=== PATIENT | female | born 1955 | race Caucasian/White ===

== ENCOUNTER → 2016-04-24 | Outpatient (CLI) | payer OTHER | LOC: RAD 08:37 | DX: R19.5 Other fecal abnormalities (principal) | CPT/HCPCS: 74249 ==

== ENCOUNTER → 2016-06-17 | Outpatient (CLI) | payer OTHER ==
[2016-06-17 08:02] LABS: ABSOLUTE EOSINOPHILS # (AUTO) 0.2 10^3/uL (0.0-0.6); ABSOLUTE MONOCYTES (AUTO) 0.3 10^3/uL (0.1-1.4); ABSOLUTE NEUT (AUTO) 2.4 10^3/uL (1.7-8.2); BASOPHILS % (AUTO) 0.6 % (0-2); EOSINOPHILS % (AUTO) 4.8 % (0-6); HEMATOCRIT 33.5 % (36.0-47.0); HEMOGLOBIN 11.3 g/dL (12.0-15.5); HGB HCT DIFFERENCE 0.4; LYMPHOCYTES % (AUTO) 25.8 % (13-45); MEAN CORPUSCULAR HEMOGLOBIN 30.4 pg (27.0-33.4); MEAN CORPUSCULAR HGB CONC 33.7 g/dL (32.0-36.0); MEAN CORPUSCULAR VOLUME 90 fl (80-97); MONOCYTES % (AUTO) 8.5 % (3-13); RED BLOOD COUNT 3.71 10^6/uL (3.72-5.28); RED CELL DISTRIBUTION WIDTH 13.6 % (11.5-14.0); SEGMENTED NEUTROPHILS % (AUTO) 60.3 % (42-78)
[2016-06-17 08:30] LABS: ALANINE AMINOTRANSFERASE 38 U/L (9-52); ALBUMIN 3.7 g/dL (3.5-5.0); ALKALINE PHOSPHATASE 91 U/L (38-126); ANION GAP 8 (5-19); ASPARTATE AMINO TRANSFERASE 28 U/L (14-36); BILIRUBIN,TOTAL 0.5 mg/dL (0.2-1.3); BLOOD UREA NITROGEN 21 mg/dL (7-20); CALCIUM 9.2 mg/dL (8.4-10.2); CARBON DIOXIDE 25 mmol/L (22-30); CHLORIDE 105 mmol/L (98-107); CHOLESTEROL 132.12 mg/dL (0-200); CREATININE RESULT 0.86 mg/dL (0.52-1.25); Direct HDL 68 mg/dL (>40); GLUCOSE 249 mg/dL (75-110); POTASSIUM 5.3 mmol/L (3.6-5.0); SODIUM 137.6 mmol/L (137-145); TOTAL PROTEIN 6.2 g/dL (6.3-8.2); TRIGLYCERIDES 47 mg/dL (<150)
[2016-06-17 08:40] LABS: DIRECT LDL 50 mg/dL (<100)
== END ==
LOC: CCC 07:50
DX: E11.9 Type 2 diabetes mellitus without complications (principal)
CPT/HCPCS: 36415; 80053; 80061; 83036; 84443; 85025

== ENCOUNTER → 2016-09-24 | Outpatient (CLI) | payer OTHER | LOC: CCC 08:40 | DX: E03.9 Hypothyroidism, unspecified (principal) | CPT/HCPCS: 36415; 82728; 83036; 83540; 83550; 84443 ==

== ENCOUNTER → 2016-11-12 | Outpatient (CLI) | payer OTHER | LOC: CCC 10:52 | DX: E03.9 Hypothyroidism, unspecified (principal) | CPT/HCPCS: 36415; 84443 ==

== ENCOUNTER → 2017-03-02 | Outpatient (CLI) | payer OTHER ==
[2017-03-02 07:25] LABS: ABSOLUTE EOSINOPHILS # (AUTO) 0.2 10^3/uL (0.0-0.6); ABSOLUTE LYMPHOCYTES (AUTO) 1.3 10^3/uL (0.5-4.7); ABSOLUTE MONOCYTES (AUTO) 0.4 10^3/uL (0.1-1.4); ABSOLUTE NEUT (AUTO) 2.3 10^3/uL (1.7-8.2); BASOPHILS % (AUTO) 0.8 % (0-2); EOSINOPHILS % (AUTO) 5.6 % (0-6); HEMATOCRIT 33.3 % (36.0-47.0); HEMOGLOBIN 11.4 g/dL (12.0-15.5); HGB HCT DIFFERENCE 0.9; LYMPHOCYTES % (AUTO) 31.3 % (13-45); MEAN CORPUSCULAR HEMOGLOBIN 30.9 pg (27.0-33.4); MEAN CORPUSCULAR HGB CONC 34.3 g/dL (32.0-36.0); MEAN CORPUSCULAR VOLUME 90 fl (80-97); MONOCYTES % (AUTO) 8.5 % (3-13); RED CELL DISTRIBUTION WIDTH 13.4 % (11.5-14.0); SEGMENTED NEUTROPHILS % (AUTO) 53.8 % (42-78); WHITE BLOOD COUNT 4.2 10^3/uL (4.0-10.5)
== END ==
LOC: CCC 07:12
DX: E11.9 Type 2 diabetes mellitus without complications (principal); Z83.2 Family history of diseases of the blood and blood-forming organs and certain disorders involving the immune mechanism
CPT/HCPCS: 36415; 83036; 85025

== ENCOUNTER → 2017-03-02 | Outpatient (CLI) | payer OTHER ==
--- NOTE | 2017-03-02 15:11 | WOMENS IMAGING REPORT ---
EXAM DESCRIPTION: BILAT SCREENING MAMMO W/CAD COMPLETED DATE/TIME: 03/02/2017 8:21 am REASON FOR STUDY: ROUTINE SCREENING; Z12.31 Z12.31 ENCNTR SCREEN MAMMOGRAM FOR MALIGNANT NEOPLASM O F CHRIS COMPARISON: 2009, 2015 TECHNIQUE: Standard craniocaudal and mediolateral oblique views of each breast recorded using [employer] acquisition. LIMITATIONS: None. FINDINGS: No masses, calcifications or architectural distortion. No areas of suspicion. Read with the assistance of CAD. .[facility] - R2 Cenova Version 1.3 .[facility] Imaging - R2 Cenova Version 1.3 .[facility] Imaging - R2 Cenova Version 2.4 .[facility] [place] R2 Cenova Version 2.4 .[facility] - R2 Programming Instructor Version 9.2 IMPRESSION: NORMAL MAMMOGRAM. BIRADS 1. BREAST DENSITY: b. There are scattered areas of fibroglandular density. BIRAD: 1 NEGATIVE RECOMMENDATION: ROUTINE SCREENING COMMENT: The patient has been notified of the results by letter per SA requirements. Additional no tification policies are in place for contacting patient with suspicious or incomplete findings. Quality ID #[id number]: The [employer] recommends an annual screening mammogram for women aged 40 years or over. This facility utilizes a reminder system to ensure that all patients receive reminder letters, and/or direct phone calls for appointments. This includes reminders for routine scr eening mammograms, diagnostic mammograms, or other Breast Imaging Interventions when appropriate. Th is patient will be placed in the appropriate reminder system. The [employer] (ACR) has developed recommendations for screening MRI of the breast s in certain patient populations, to be used in conjunction with mammography. Breast MRI surveillanc e may be appropriate for women with more than 20% lifetime risk of developing breast cancer as deter mined by genetic testing, significant family history of the disease, or history of mantle radiation f or Hodgkins Disease. ACR Practice Guidelines 2008. TECHNICAL DOCUMENTATION: FINDING NUMBER: (1) ASSESSMENT: (1) JOB ID: [id number] [employer]- All Rights Reserved
== END ==
LOC: WI 08:04
DX: Z12.31 Encounter for screening mammogram for malignant neoplasm of breast (principal)
CPT/HCPCS: 77067; G0202

== ENCOUNTER → 2017-07-31 | Outpatient (CLI) | payer OTHER ==
[2017-07-31 10:02] LABS: ABSOLUTE EOSINOPHILS # (AUTO) 0.2 10^3/uL (0.0-0.6); ABSOLUTE LYMPHOCYTES (AUTO) 1.2 10^3/uL (0.5-4.7); ABSOLUTE MONOCYTES (AUTO) 0.4 10^3/uL (0.1-1.4); ABSOLUTE NEUT (AUTO) 2.4 10^3/uL (1.7-8.2); BASOPHILS % (AUTO) 0.6 % (0-2); EOSINOPHILS % (AUTO) 5.3 % (0-6); HEMATOCRIT 35.6 % (36.0-47.0); HEMOGLOBIN 12.1 g/dL (12.0-15.5); LYMPHOCYTES % (AUTO) 28.4 % (13-45); MEAN CORPUSCULAR HEMOGLOBIN 30.5 pg (27.0-33.4); MEAN CORPUSCULAR HGB CONC 33.9 g/dL (32.0-36.0); MEAN CORPUSCULAR VOLUME 90 fl (80-97); MONOCYTES % (AUTO) 8.8 % (3-13); PLATELET COUNT 226 10^3/uL (150-450); RED BLOOD COUNT 3.96 10^6/uL (3.72-5.28); RED CELL DISTRIBUTION WIDTH 14.4 % (11.5-14.0); SEGMENTED NEUTROPHILS % (AUTO) 56.9 % (42-78); TOTAL CELLS COUNTED % (AUTO) 100 %; WHITE BLOOD COUNT 4.2 10^3/uL (4.0-10.5)
[2017-07-31 10:28] LABS: ALANINE AMINOTRANSFERASE 33 U/L (9-52); ALBUMIN 4.1 g/dL (3.5-5.0); ALKALINE PHOSPHATASE 98 U/L (38-126); ANION GAP 10 (5-19); ASPARTATE AMINO TRANSFERASE 25 U/L (14-36); BILIRUBIN,DIRECT 0.2 mg/dL (0.0-0.4); BILIRUBIN,TOTAL 0.2 mg/dL (0.2-1.3); BLOOD UREA NITROGEN 32 mg/dL (7-20); CALCIUM 9.7 mg/dL (8.4-10.2); CARBON DIOXIDE 27 mmol/L (22-30); CHLORIDE 102 mmol/L (98-107); CHOLESTEROL 158.82 mg/dL (0-200); GLUCOSE 128 mg/dL (75-110); POTASSIUM 5.3 mmol/L (3.6-5.0); SODIUM 139.4 mmol/L (137-145); TOTAL PROTEIN 6.4 g/dL (6.3-8.2); TRIGLYCERIDES 53 mg/dL (<150)
[2017-07-31 10:38] LABS: DIRECT LDL 61 mg/dL (<100)
== END ==
LOC: OD 08:23
DX: D64.9 Anemia, unspecified (principal); E11.8 Type 2 diabetes mellitus with unspecified complications; E78.5 Hyperlipidemia, unspecified; I10 Essential (primary) hypertension
CPT/HCPCS: 36415; 80053; 80061; 83036; 84443; 85025

== ENCOUNTER → 2017-08-29 | Outpatient (CLI) | payer OTHER ==
[2017-08-29 10:46] LABS: ANION GAP 11 (5-19); BLOOD UREA NITROGEN 25 mg/dL (7-20); CALCIUM 9.5 mg/dL (8.4-10.2); CARBON DIOXIDE 28 mmol/L (22-30); CHLORIDE 101 mmol/L (98-107); GLUCOSE 294 mg/dL (75-110); POTASSIUM 5.6 mmol/L (3.6-5.0); SODIUM 139.7 mmol/L (137-145)
== END ==
LOC: CCC 09:24
DX: E11.8 Type 2 diabetes mellitus with unspecified complications (principal); I10 Essential (primary) hypertension
CPT/HCPCS: 36415; 80048

== ENCOUNTER → 2017-09-02 | Outpatient (CLI) | payer OTHER | LOC: CCC 12:36 | DX: E87.5 Hyperkalemia (principal) | CPT/HCPCS: 36415; 84132 ==

== ENCOUNTER → 2017-09-30 | Outpatient (CLI) | payer OTHER ==
--- NOTE | 2017-09-30 11:35 | RADIOLOGY REPORT (SQ) ---
EXAM DESCRIPTION: HAND BILATERAL 3 VIEWS COMPLETED DATE/TIME: 09/30/2017 10:37 am REASON FOR STUDY: OTHER SPECIFIED ARTHRITIS, UNSPECIFIED HAND M13.849 OTHER SPECIFIED ARTHRITIS, UN SPECIFIED HAND E11.8 TYPE 2 DIABETES MELLITUS WITH UNSPECIFIED COMPLICATION COMPARISON: None. EXAM PARAMETERS: NUMBER OF VIEWS: Three views right hand. Three views left hand. TECHNIQUE: AP, lateral and oblique radiographic images acquired of bilateral hands. LIMITATIONS: None. FINDINGS: MINERALIZATION: Normal. BONES: No acute fracture or dislocation. No worrisome bone lesions. There is fusion of the middle and distal phalanges of the left 5th digit. JOINTS: Osteoarthritic changes are identified involving several of the interphalangeal joints bilater ally. Extensive degenerative changes are identified involving the 2nd MCP joint on the left with cys tic changes. Less pronounced degenerative changes are identified involving the MCP joints of the 2nd and 3rd digits on the right. Degenerative changes are identified involving the 1st carpal/metacarpa l articulations right greater than left. SOFT TISSUES: No swelling. No calcifications. OTHER: No other significant finding. IMPRESSION: Degenerative changes as noted above. Other findings as noted above TECHNICAL DOCUMENTATION: JOB ID: [id number] [employer]- All Rights Reserved Reading location - IP/workstation name: [email or web address]
== END ==
LOC: CCC 10:03
DX: M19.041 Primary osteoarthritis, right hand (principal); M19.042 Primary osteoarthritis, left hand; E11.8 Type 2 diabetes mellitus with unspecified complications; I10 Essential (primary) hypertension; E78.4 Other hyperlipidemia
CPT/HCPCS: 36415; 85652; 86140; 86430; 86900; 86901

== ENCOUNTER → 2017-10-07 | Outpatient (CLI) | payer OTHER ==
[~2017-10-07] MED LIST: REGADENOSON INJ 0.4 MG/5 ML DISP.SYRIN IV ONE
--- NOTE | 2017-10-11 21:49 | DRAGON STRESS TEST REPORT ---
Intravenous Lexiscan Cardiolite stress test using single photon emmision computerized tomography. Date of procedure: 10/07/2017. Ordering Provider: [facility] Patient's status: Outpatient Indication: Chest pain. Coronary risk factors: Age, diabetes mellitus, hypertension, and dyslipidemia. Resting EKG: Sinus Rhythm. Within Normal Limits. Stress EKG: No changes of ischemia. Patient had no chest pain or discomfort, and there were no arrhythmias seen Reason for termination: Protocol. Conclusions: Normal EKG and hemodynamic response to IV Lexiscan. Nuclear data: At rest the patient was given 10.46 millicuries of technetium 99m sestamibi injected intravenously. As per protocol rest non gated SPECT images were obtained. Subsequently the patient was given intravenous Lexiscan at a dose of 0.4 mg in 5 mL intravenously, followed by flush with normal saline. Subsequently the stress dose of 32.2 millicuries of technetium 99m sestamibi was injected intravenously. As per protocol stress gated images were obtained. Nuclear interpretation: Review of images showed that all segments of the myocardium had normal perfusion at rest, and normal perfusion post stress with IV Lexiscan. All segments of the myocardium had normal motion, contraction, and thickening by gated study. T. I D. ratio was read as 1.25. Visually the T I D ratio was normal. Computer read rest, and stress left ventricular ejection fraction were 67 %, and 75 %, respectively. Conclusion: 1. There is no scintigraphic evidence of Lexiscan induced myocardial ischemia. 2. There is no scintigraphic evidence of myocardial infarction/scar. Recommendations: Aggressive risk factor modification, and treating the underlying co- morbidities. [facility]
== END ==
LOC: RAD 06:17
DX: E11.8 Type 2 diabetes mellitus with unspecified complications (principal); R07.9 Chest pain, unspecified; I10 Essential (primary) hypertension; R94.31 Abnormal electrocardiogram [ECG] [EKG]
CPT/HCPCS: 93017; 78452; A9500; J2785; Q9969

== ENCOUNTER → 2017-10-12 | Outpatient (CLI) | payer OTHER ==
--- NOTE | 2017-10-12 20:45 | XCELERA REPORT ---
[address] [address] Transthoracic Echocardiogram Report Name: KRISTEN GATES Age: 62 yrs Gender: Female : 1955 Patient Status: Outpatient Patient Location: Study Date: 10/12/2017 02:02 PM Height: 62 in Weight: 145 lb BSA: 1.7 m2 Procedure: A two-dimensional transthoracic echocardiogram with color flow and Doppler was performed. Study Quality: Fair. Reason For Study: HTN ABN EKG History: HTN ABN EKG. Ordering Physician: PAVAN PRICE Performed By: Sophia Salvador Interpretation Summary The left ventricle is normal in size. There is normal left ventricular wall thickness. LV EF is 65% Left ventricular systolic function is normal. Doppler measurements suggest impaired left ventricular relaxation, which is associated with grade I/IV or mild diastolic dysfunction The left ventricular wall motion is normal. There is no thrombus. The right ventricle is normal in size and function. The right atrium is normal in size The left atrial size is normal. The interatrial septum is intact with no evidence for an atrial septal defect. There is no evidence of mitral valve prolapse. There is no vegetation seen on the mitral valve. There is no mitral valve stenosis. There is a mild amount of mitral regurgitation There is no aortic valvular vegetation. There is no aortic valve stenosis There is no LVOT obstruction. There is a mild amount of aortic regurgitation No tricuspid regurgitation. There is no tricuspid stenosis. Unable to calculate RVSP sdue to lack of TR jet. There is no pulmonic valvular stenosis. There is a trace amount of pulmonic regurgitation There is no pericardial effusion. MMode/2D Measurements & Calculations RVDd: 2.8 cm LVIDd: 4.4 cm FS: 36.6 % Ao root diam: 3.1 cm IVSd: 0.98 cm LVIDs: 2.8 cm EDV(Teich): 89.8 ml LVPWd: 0.97 cm ESV(Teich): 30.0 ml Ao root area: 7.7 cm2 EF(Teich): 66.6 % LA dimension: 3.6 cm Doppler Measurements & Calculations MV E max charlie: MV P1/2t max charlie: Ao V2 max: AI max charlie: 74.0 cm/sec 73.5 cm/sec 112.4 cm/sec 399.1 cm/sec MV A max charlie: MV P1/2t: 77.9 msec Ao max PG: AI max P.7 cm/sec 5.1 mmHg 63.7 mmHg MV E/A: 0.74 MVA(P1/2t): 2.8 cm2 AI dec slope: MV dec slope: 276.6 cm/sec2 223.7 cm/sec2 MV dec time: AI P1/2t: 0.26 sec 522.4 msec LV V1 max PG: PA V2 max: PI end-d charlie: 5.2 mmHg 71.1 cm/sec 97.7 cm/sec LV V1 max: PA max P.0 mmHg 113.5 cm/sec Left Ventricle The left ventricle is normal in size. There is normal left ventricular wall thickness. LV EF is 65%. Left ventricular systolic function is normal. Doppler measurements suggest impaired left ventricular relaxation, which is associated with grade I/IV or mild diastolic dysfunction. The left ventricular wall motion is normal. There is no thrombus. There is no ventricular septal defect visualized. Right Ventricle The right ventricle is normal in size and function. Atria The right atrium is normal in size. The left atrial size is normal. The interatrial septum is intact with no evidence for an atrial septal defect. Mitral Valve There is no evidence of mitral valve prolapse. There is no vegetation seen on the mitral valve. There is no mitral valve stenosis. There is a mild amount of mitral regurgitation. Aortic Valve There is no aortic valvular vegetation. There is no aortic valve stenosis. There is no LVOT obstruction. There is a mild amount of aortic regurgitation. Tricuspid Valve There is no tricuspid stenosis. No tricuspid regurgitation. Unable to calculate RVSP sdue to lack of TR jet. Pulmonic Valve There is no pulmonic valvular stenosis. There is a trace amount of pulmonic regurgitation. Great Vessels The aortic root is normal size. Effusions There is no pericardial effusion. : PAVAN PRICE > Cira Alfred
== END ==
LOC: SP 13:26
PROVIDERS: ATTEND Internal Medicine
DX: I10 Essential (primary) hypertension (principal); R94.31 Abnormal electrocardiogram [ECG] [EKG]; E11.8 Type 2 diabetes mellitus with unspecified complications
CPT/HCPCS: 93306

== ENCOUNTER → 2017-11-11 | Outpatient (CLI) | payer OTHER ==
[2017-11-11 09:22] LABS: CHOLESTEROL 130.48 mg/dL (0-200); TRIGLYCERIDES 58 mg/dL (<150)
[2017-11-11 09:32] LABS: DIRECT LDL 48 mg/dL (<100)
== END ==
LOC: CCC 08:27
DX: E78.5 Hyperlipidemia, unspecified (principal)
CPT/HCPCS: 36415; 80061

== ENCOUNTER → 2017-12-10 | Outpatient (CLI) | payer OTHER ==
[2017-12-10 12:05] LABS: ANION GAP 11 (5-19); BLOOD UREA NITROGEN 31 mg/dL (7-20); CALCIUM 9.4 mg/dL (8.4-10.2); CARBON DIOXIDE 25 mmol/L (22-30); CHLORIDE 105 mmol/L (98-107); GLUCOSE 200 mg/dL (75-110); POTASSIUM 5.3 mmol/L (3.6-5.0); SODIUM 140.6 mmol/L (137-145)
== END ==
LOC: CCC 09:35
DX: E11.8 Type 2 diabetes mellitus with unspecified complications (principal); I10 Essential (primary) hypertension; M13.849 Other specified arthritis, unspecified hand
CPT/HCPCS: 36415; 80048; 83036; 86200

== ENCOUNTER 2018-10-26 21:55 | Emergency (ER) | payer MEDICARE, OTHER ==
[2018-10-26 22:58] LABS: ABSOLUTE EOSINOPHILS # (AUTO) 0.1 10^3/uL (0.0-0.6); ABSOLUTE LYMPHOCYTES (AUTO) 0.7 10^3/uL (0.5-4.7); ABSOLUTE MONOCYTES (AUTO) 0.5 10^3/uL (0.1-1.4); ABSOLUTE NEUT (AUTO) 3.9 10^3/uL (1.7-8.2); BASOPHILS % (AUTO) 0.4 % (0-2); EOSINOPHILS % (AUTO) 1.9 % (0-6); HEMATOCRIT 35.6 % (36.0-47.0); HEMOGLOBIN 12.1 g/dL (12.0-15.5); LYMPHOCYTES % (AUTO) 13.6 % (13-45); MEAN CORPUSCULAR VOLUME 91 fl (80-97); MONOCYTES % (AUTO) 9.7 % (3-13); PLATELET COUNT 215 10^3/uL (150-450); RED BLOOD COUNT 3.91 10^6/uL (3.72-5.28); RED CELL DISTRIBUTION WIDTH 13.1 % (11.5-14.0); SEGMENTED NEUTROPHILS % (AUTO) 74.4 % (42-78); TOTAL CELLS COUNTED % (AUTO) 100 %; WHITE BLOOD COUNT 5.2 10^3/uL (4.0-10.5)
[2018-10-26] MEDS ORDERED: FAMOTIDINE INJ/PF 20 MG/2 ML SDV IV ONE (23:16)
[2018-10-26] MEDS ORDERED: NORMAL SALINE 1000 ML 1,000 ML IV ONE (23:16)
[2018-10-26] MEDS ORDERED: ONDANSETRON HCL INJ/PF 4 MG/2 ML SDV IV ONE (23:16)
[2018-10-26 23:17] LABS: ALANINE AMINOTRANSFERASE 30 U/L (9-52); ALBUMIN 4.3 g/dL (3.5-5.0); ALKALINE PHOSPHATASE 98 U/L (38-126); ANION GAP 12 (5-19); ASPARTATE AMINO TRANSFERASE 26 U/L (14-36); BILIRUBIN,DIRECT 0.2 mg/dL (0.0-0.4); BILIRUBIN,TOTAL 0.3 mg/dL (0.2-1.3); BLOOD UREA NITROGEN 23 mg/dL (7-20); CALCIUM 9.8 mg/dL (8.4-10.2); CARBON DIOXIDE 23 mmol/L (22-30); CHLORIDE 96 mmol/L (98-107); GLUCOSE 301 mg/dL (75-110); POTASSIUM 5.4 mmol/L (3.6-5.0); SODIUM 130.5 mmol/L (137-145); TOTAL PROTEIN 7.1 g/dL (6.3-8.2)
--- NOTE | 2018-10-26 23:27 | ER Document Report ---
ED Medical Screen (RME) - General Chief Complaint: Vomiting Stated Complaint: VOMITING Time Seen by Provider: 10/26/18 23:16 Primary Care Provider: TRAE AGOSTO MD [Primary Care Provider] - Follow up as needed Notes: Patient is a 63-year-old female with a history of type 2 diabetes, hypothyroidism, hypertension, arthritis and depression who presents to the emergency department with the 2-day history of vomiting. Patient states that the vomiting has progressed and become more frequent over the past day. Patient denies diarrhea. Patient states her abdomen is generally bloated. Patient denies abdominal pain. Patient denies urinary symptoms. Patient states that she sought care in the emergency department she was concerned for dehydration. Patient states she was recently treated with Bactrim for a possible right great toe infection. Patient is on lisinopril for her hypertension. Patient states that she is unsure if the Bactrim has been causing the stomach upset. Patient states she does have a history of anemia as well and has not been taking her iron. Patient denies fevers. TRAVEL OUTSIDE OF THE [place] IN LAST 30 DAYS: No - Related Data Allergies/Adverse Reactions: erythromycin base Allergy (Intermediate, Verified 03/03/16 13:53) HIVES, FACIAL SWELLING codeine Adverse Reaction (Intermediate, Verified 03/03/16 13:53) NAUSEA, VOMITING Past Medical History - Social History Frequency of alcohol use: None Drug Abuse: None - Past Medical History Cardiac Medical History: Reports: Hx Coronary Artery Disease - HIGH CHOL, Hx Hypercholesterolemia, Hx Hypertension Denies: Hx Heart Attack Pulmonary Medical History: Denies: Hx Asthma, Hx Bronchitis, Hx COPD, Hx Pneumonia Neurological Medical History: Denies: Hx Cerebrovascular Accident, Hx Seizures Endocrine Medical History: Reports: Hx Diabetes Mellitus Type 2 - on insulin, Hx Hypothyroidism Renal/ Medical History: Denies: Hx Peritoneal Dialysis Musculoskeltal Medical History: Reports Hx Arthritis Psychiatric Medical History: Reports: Hx Depression - Immunizations Hx Diphtheria, Pertussis, Tetanus Vaccination: Yes Physical Exam - Vital signs Vitals: Temp Pulse Resp BP Pulse Ox 98.0 F 91 18 128/59 H 97 10/26/18 22:25 10/26/18 22:25 10/26/18 22:25 10/26/18 22:25 10/26/18 22:25 - Abdominal Inspection: Normal Distension: No distension Bowel sounds: Normal Tenderness: Nontender Organomegaly: No organomegaly Course - Re-evaluation Re-evalutation: 10/26/18 23:26 We will obtain basic lab work, give IV the hydration and a dose of antinausea medicine while in triage. I have greeted and performed a rapid initial assessment of this patient. A comprehensive ED assessment and evaluation of the patient, analysis of test results and completion of the medical decision making process will be conducted by additional ED providers. - Vital Signs Vital signs: Temp Pulse Resp BP Pulse Ox 98.0 F 91 18 128/59 H 97 10/26/18 22:25 10/26/18 22:25 10/26/18 22:25 10/26/18 22:25 10/26/18 22:25 - Laboratory Result Diagrams: 10/26/18 22:45 10/26/18 22:45 Laboratory results interpreted by me: 10/26/18 10/26/18 10/26/18 22:45 22:45 22:55 Hct 35.6 L Sodium 130.5 L Potassium 5.4 H Chloride 96 L BUN 23 H Creatinine 1.52 H Est GFR ( Amer) 42 L Est GFR (Non-Af Amer) 34 L Glucose 301 H POC Glucose 277 H Doctor's Discharge - Discharge Referrals: TRAE AGOSTO MD [Primary Care Provider] - Follow up as needed
[2018-10-27 01:35] LABS: APPEARANCE,URINE CLEAR; BILIRUBIN,URINE NEGATIVE (NEGATIVE); COLOR,URINE YELLOW; GLUCOSE, URINE >=500 mg/dL (NEGATIVE); KETONES,URINE TRACE mg/dL (NEGATIVE); LEUKOCYTE ESTERASE,URINE NEGATIVE (NEGATIVE); NITRITE,URINE NEGATIVE (NEGATIVE); PROTEIN,URINE NEGATIVE (NEGATIVE); UROBILINOGEN,URINE NEGATIVE mg/dL (<2.0)
[2018-10-27 01:45] LABS: ADD MANUAL MICROSCOPIC YES; WBC,URINE NONE SEEN /HPF
[2018-10-27 01:46] LABS: RBC,URINE RARE /HPF
[2018-10-27] MEDS ORDERED: PROMETHAZINE HCL INJ 25 MG/1 ML VIAL IM ONE (01:55)
[2018-10-27] MEDS ORDERED: NORMAL SALINE 1000 ML 1,000 ML IV ONE (01:56)
--- NOTE | 2018-10-27 02:43 | ER Document Report ---
ED General - General Chief Complaint: Vomiting Stated Complaint: VOMITING Time Seen by Provider: 10/26/18 23:16 Primary Care Provider: TRAE AGOSTO MD [Primary Care Provider] - Follow up as needed Notes: Patient is a 63-year-old female with a history of type 2 diabetes, hypothyroidism, hypertension, arthritis and depression who presents to the emergency department with the 2-day history of vomiting. Patient states that the vomiting has progressed and become more frequent over the past day. Patient denies diarrhea. Patient states her abdomen is generally bloated. Patient denies abdominal pain. Patient denies urinary symptoms. Patient states that she sought care in the emergency department she was concerned for dehydration. Patient states she was recently treated with Bactrim for a possible right great toe infection. Patient is on lisinopril for her hypertension. Patient states that she is unsure if the Bactrim has been causing the stomach upset. Patient states she does have a history of anemia as well and has not been taking her iron. Patient denies fevers. TRAVEL OUTSIDE OF THE [place] IN LAST 30 DAYS: No - Related Data Allergies/Adverse Reactions: erythromycin base Allergy (Intermediate, Verified 03/03/16 13:53) HIVES, FACIAL SWELLING codeine Adverse Reaction (Intermediate, Verified 03/03/16 13:53) NAUSEA, VOMITING Past Medical History - Social History Smoking Status: Never Smoker Frequency of alcohol use: None Drug Abuse: None Family History: Reviewed & Not Pertinent Patient has suicidal ideation: No Patient has homicidal ideation: No - Past Medical History Cardiac Medical History: Reports: Hx Coronary Artery Disease - HIGH CHOL, Hx Hypercholesterolemia, Hx Hypertension Denies: Hx Heart Attack Pulmonary Medical History: Denies: Hx Asthma, Hx Bronchitis, Hx COPD, Hx Pneumonia Neurological Medical History: Denies: Hx Cerebrovascular Accident, Hx Seizures Endocrine Medical History: Reports: Hx Diabetes Mellitus Type 2 - on insulin, Hx Hypothyroidism Renal/ Medical History: Denies: Hx Peritoneal Dialysis Musculoskeletal Medical History: Reports Hx Arthritis Psychiatric Medical History: Reports: Hx Depression - Immunizations Hx Diphtheria, Pertussis, Tetanus Vaccination: Yes Hx Pneumococcal Vaccination: 01/26/16 Review of Systems - Review of Systems Constitutional: See HPI EENT: No symptoms reported Cardiovascular: See HPI Respiratory: See HPI Gastrointestinal: See HPI Genitourinary: No symptoms reported Female Genitourinary: No symptoms reported Musculoskeletal: No symptoms reported Skin: No symptoms reported Hematologic/Lymphatic: No symptoms reported Neurological/Psychological: No symptoms reported Physical Exam - Vital signs Vitals: Temp Pulse Resp BP Pulse Ox 98.0 F 91 18 128/59 H 97 10/26/18 22:25 10/26/18 22:25 10/26/18 22:25 10/26/18 22:25 10/26/18 22:25 - Notes Notes: PHYSICAL EXAMINATION: Reviewed vital signs and charting by RN GENERAL: Alert, interacts well. No acute distress. HEAD: Normocephalic, atraumatic. EYES: Pupils equal and round. Extraocular movements intact. ENT: Oral mucosa moist, tongue midline. NECK: Full range of motion. Trachea midline. LUNGS: Clear to auscultation bilaterally, no wheezes, rales, or rhonchi. No respiratory distress. HEART: Regular rate and rhythm. No murmur ABDOMEN: soft, generalized tenderness to palpation. Mild distention. Bowel sounds present EXTREMITIES: Moves all 4 extremities spontaneously. No edema, No cyanosis. PSYCH: Normal affect, normal mood. SKIN: Warm, dry, normal turgor. No rashes or lesions noted. Course - Vital Signs Vital signs: Temp Pulse Resp BP Pulse Ox 98.0 F 91 18 128/59 H 97 10/26/18 22:25 10/26/18 22:25 10/26/18 22:25 10/26/18 22:25 10/26/18 22:25 - Laboratory Result Diagrams: 10/26/18 22:45 10/26/18 22:45 Laboratory results interpreted by me: 10/26/18 10/26/18 10/26/18 22:45 22:45 22:55 Hct 35.6 L Sodium 130.5 L Potassium 5.4 H Chloride 96 L BUN 23 H Creatinine 1.52 H Est GFR ( Amer) 42 L Est GFR (Non-Af Amer) 34 L Glucose 301 H POC Glucose 277 H Urine Glucose (UA) Urine Ketones 10/27/18 01:19 Hct Sodium Potassium Chloride BUN Creatinine Est GFR ( Amer) Est GFR (Non-Af Amer) Glucose POC Glucose Urine Glucose (UA) >=500 H Urine Ketones TRACE H Discharge - Discharge Clinical Impression: Nausea & vomiting Qualifiers: Vomiting type: unspecified Vomiting Intractability: non-intractable Qualified Code(s): R11.2 - Nausea with vomiting, unspecified Condition: Good Disposition: HOME, SELF-CARE Instructions: Antinausea Medication ([facility]) Additional Instructions: You are seen in the emergency department this evening for nausea and vomiting. As discussed, we are sending you home with some antinausea meds patients. Please do small sips and very small frequent meals to help with the vomiting. The nausea medication should help. Your labs were slightly off so we are asking that you get repeat labs in 48 hours. If you do have intractable vomiting even after taking the Phenergan, you pass out, you have acute shortness of breath or chest pain, you become dizzy/lightheaded/extremely weak, or you have any other concerning symptoms please return to the emergency department. Forms: Follow-Up Laboratory Testing Referrals: TRAE AGOSTO MD [Primary Care Provider] - Follow up as needed
--- NOTE | 2018-10-27 03:52 | ER Document Report ---
Doctor's Note Notes: 10/27/18 03:50 Patient is seen in conjunction with the physician mobile unit assistant, please see his note correlate with mine. In short this is a 63-year-old female with a history of diabetes who presents to the emergency department for evaluation of emesis. She has been on Bactrim to head off a potential infection in her right great toe. She states she believes she is been vomiting secondary to that. She has had on average 4-6 episodes of nonbloody, nonbilious emesis. She denies any melena or hematochezia. She really does not have any significant pain, but does report significant bloating. On physical exam her heart is regular rate and rhythm, lungs are clear. Abdomen is soft, nontender. Patient was medicated here with Phenergan, was feeling somewhat improved. Her laboratory investigations did reveal mild dehydration, mild increase in her creatinine. According to her this has been ongoing, is being followed. At this point we will send her home with a small amount of Phenergan. She was warned about potential side effects, including drowsiness and dizziness with this medication. We did discuss possible etiologies of her vomiting, including potentially gastroparesis. I explained her she needs to have smaller, more frequent meals. She is also told to avoid bananas, she is mildly hyperkalemic. We did give her a lab slip to have her labs rechecked in 2 days, to reevaluate her hyperkalemia as well as her renal function and hyponatremia. She voiced understanding to this findings. She is to return to the ED with worsening or new concerning symptoms.
[2018-10-27 04:58] VITALS: BP 146/78
== END 2018-10-27 04:56 | disposition home or self-care (01) ==
LOC: ER 21:55
DX: R11.2 Nausea with vomiting, unspecified (principal); E11.9 Type 2 diabetes mellitus without complications; R14.0 Abdominal distension (gaseous); R10.817 Generalized abdominal tenderness; I25.10 Atherosclerotic heart disease of native coronary artery without angina pectoris; I10 Essential (primary) hypertension; Z79.899 Other long term (current) drug therapy; Z88.1 Allergy status to other antibiotic agents
CPT/HCPCS: 99284; 96361; 96374; 96375; 36415; 82962; 85025; 80053; 81001; J2550; J2405; J7030 ×2; S0028

== ENCOUNTER 2019-06-24 05:37 | Emergency (ER) | payer MEDICARE ==
[2019-06-24 06:28] LABS: ABSOLUTE EOSINOPHILS # (AUTO) 0.2 10^3/uL (0.0-0.6); ABSOLUTE LYMPHOCYTES (AUTO) 1.2 10^3/uL (0.5-4.7); ABSOLUTE MONOCYTES (AUTO) 0.5 10^3/uL (0.1-1.4); BASOPHILS % (AUTO) 0.3 % (0-2); EOSINOPHILS % (AUTO) 2.7 % (0-6); HEMATOCRIT 32.8 % (36.0-47.0); HEMOGLOBIN 11.2 g/dL (12.0-15.5); LYMPHOCYTES % (AUTO) 14.9 % (13-45); MEAN CORPUSCULAR HEMOGLOBIN 30.8 pg (27.0-33.4); MEAN CORPUSCULAR HGB CONC 34.1 g/dL (32.0-36.0); MEAN CORPUSCULAR VOLUME 91 fl (80-97); MONOCYTES % (AUTO) 6.1 % (3-13); PLATELET COUNT 232 10^3/uL (150-450); RED BLOOD COUNT 3.62 10^6/uL (3.72-5.28); RED CELL DISTRIBUTION WIDTH 13.8 % (11.5-14.0); TOTAL CELLS COUNTED % (AUTO) 100 %; WHITE BLOOD COUNT 7.9 10^3/uL (4.0-10.5)
[2019-06-24 06:35] LABS: APPEARANCE,URINE CLEAR; BILIRUBIN,URINE NEGATIVE (NEGATIVE); COLOR,URINE COLORLESS; GLUCOSE, URINE NEGATIVE (NEGATIVE); KETONES,URINE NEGATIVE (NEGATIVE); LEUKOCYTE ESTERASE,URINE NEGATIVE (NEGATIVE); NITRITE,URINE NEGATIVE (NEGATIVE); PROTEIN,URINE NEGATIVE (NEGATIVE); URINE SPECIFIC GRAVITY 1.003; UROBILINOGEN,URINE NEGATIVE mg/dL (<2.0)
[2019-06-24 06:47] LABS: ALBUMIN 3.9 g/dL (3.5-5.0); ALKALINE PHOSPHATASE 98 U/L (38-126); ANION GAP 9 (5-19); ASPARTATE AMINO TRANSFERASE 30 U/L (14-36); BILIRUBIN,DIRECT 0.2 mg/dL (0.0-0.4); BILIRUBIN,TOTAL 0.5 mg/dL (0.2-1.3); BLOOD UREA NITROGEN 31 mg/dL (7-20); CALCIUM 8.6 mg/dL (8.4-10.2); CARBON DIOXIDE 26 mmol/L (22-30); CHLORIDE 94 mmol/L (98-107); CREATINE KINASE 82 U/L (30-135); GLUCOSE 130 mg/dL (75-110); POTASSIUM 4.7 mmol/L (3.6-5.0)
[2019-06-24 07:00] LABS: CREATINE KINASE MB 2.48 ng/mL (<4.55)
[2019-06-24 07:01] LABS: TROPONIN I < 0.012 ng/mL
[2019-06-24] MEDS ORDERED: NORMAL SALINE 1000 ML 1,000 ML IV ONE ×2 (08:29→11:45)
--- NOTE | 2019-06-24 08:35 | ER Document Report ---
ED General - General Chief Complaint: Dizziness Stated Complaint: DIZZINESS Time Seen by Provider: 06/24/19 08:11 Primary Care Provider: TRAE AGOSTO MD [Primary Care Provider] - Follow up as needed TRAVEL OUTSIDE OF THE [place] IN LAST 30 DAYS: No - HPI Notes: Chief complaint: Dizziness 64-year-old female with history of type 2 diabetes, hypertension, hypothyroidism and rheumatoid arthritis presents with insidious onset of mild vertigo over the last 2 days. Patient says her appetite has been "off" and she is not been drinking a lot of fluids. She reports sensation of the room briefly spinning or turning when she changes position. She has been nauseated without vomiting. No headache. No focal neurologic symptoms. No fever. No dysuria. - Related Data Allergies/Adverse Reactions: erythromycin base Allergy (Intermediate, Verified 06/24/19 05:51) HIVES, FACIAL SWELLING codeine Adverse Reaction (Intermediate, Verified 06/24/19 05:51) NAUSEA, VOMITING Home Medications: DIABETES Past Medical History - General Information source: Patient, Relative - Social History Smoking Status: Never Smoker Family History: Reviewed & Not Pertinent Patient has suicidal ideation: No Patient has homicidal ideation: No - Past Medical History Cardiac Medical History: Reports: Hx Coronary Artery Disease - HIGH CHOL, Hx Hypercholesterolemia, Hx Hypertension Denies: Hx Heart Attack Pulmonary Medical History: Denies: Hx Asthma, Hx Bronchitis, Hx COPD, Hx Pneumonia Neurological Medical History: Denies: Hx Cerebrovascular Accident, Hx Seizures Endocrine Medical History: Reports: Hx Diabetes Mellitus Type 2 - on insulin, Hx Hypothyroidism Renal/ Medical History: Denies: Hx Peritoneal Dialysis Musculoskeletal Medical History: Reports Hx Arthritis Psychiatric Medical History: Reports: Hx Depression - Immunizations Hx Diphtheria, Pertussis, Tetanus Vaccination: Yes Hx Pneumococcal Vaccination: 01/26/16 Review of Systems - Review of Systems Notes: Constitutional: Negative for fever. HENT: Negative for sore throat. Eyes: Negative for visual changes. Cardiovascular: Negative for chest pain. Respiratory: Negative for shortness of breath. Gastrointestinal: Negative for abdominal pain, vomiting or diarrhea. Genitourinary: Negative for dysuria. Musculoskeletal: Negative for back pain. Skin: Negative for rash. Neurological: As per HPI. 10 point ROS negative except as marked above and in HPI. Physical Exam - Vital signs Vitals: Temp Pulse Resp BP Pulse Ox 98.0 F 76 16 174/60 H 97 03/13/20 05:57 06/24/19 05:57 06/24/19 05:57 06/24/19 05:57 06/24/19 05:57 - Notes Notes: GENERAL: Well-developed well-nourished appearing in no acute distress. SKIN: Good turgor no rashes. HEAD: Normocephalic atraumatic. EYES: PERRLA. EOMI. Conjunctivae and sclerae clear. EARS: CANALS AND TMS CLEAR. NOSE: CLEAR. MOUTH: Moist mucosa. Good dentition. No stridor or edema. No drooling. NECK: Supple. No masses or thyromegaly. No adenopathy. Carotids 2+ without bruits. No JVD. BACK: Symmetrical without tenderness. CHEST: Respirations unlabored. Breath sounds clear and symmetrical. HEART: Regular rhythm. No murmur gallop or rub. ABDOMEN: Soft nontender without masses, organomegaly or rebound. Bowel sounds normally active. No bruits. GENITALIA: Deferred. EXTREMITIES: Rheumatoid deformities of both hands. No edema. No calf tenderness. Cap refill less than 1.5 seconds. Dorsalis pedis and posterior tibial pulses 3+ and symmetrical. NEUROLOGICAL: GCS 15. Alert and oriented x3. Normal gait. Fluent speech. Cranial nerves II through XII intact. Sensorimotor and cerebellar normal. Normal tone. PSYCHIATRIC: Appropriate affect. Course - Re-evaluation Re-evalutation: 06/24/19 08:35 Patient has mild hyponatremia. We are going to check a chest x-ray and head CT. I will give her some normal saline IV and then recheck a basic metabolic profile. Her twelve-lead EKG is unremarkable. Her urinalysis is normal. 06/24/19 11:49 Patient has an unremarkable head CT and chest x-ray. She is received a liter of normal saline and is feeling better. A basic metabolic profile was rechecked. Her sodium is come up to 132 and her BUN is coming down. Plan at this point is to give her a second liter normal saline and then discharge her home for outpatient follow-up with PMD with instructions to push p.o. fluids. - Vital Signs Vital signs: Temp Pulse Resp BP Pulse Ox 98.0 F 74 17 138/71 H 100 06/24/19 05:57 06/24/19 06:32 06/24/19 06:39 06/24/19 06:39 06/24/19 06:39 - Laboratory Result Diagrams: 06/24/19 06:15 06/24/19 10:57 Laboratory results interpreted by me: 06/24/19 06/24/19 06/24/19 05:53 06:15 06:15 RBC 3.62 L Hgb 11.2 L Hct 32.8 L Sodium 128.8 L Chloride 94 L BUN 31 H Glucose 130 H POC Glucose 121 H 06/24/19 10:57 RBC Hgb Hct Sodium 132.7 L Chloride BUN 26 H Glucose 198 H POC Glucose - Diagnostic Test Radiology reviewed: Reports reviewed - Per radiologist chest x-ray and noncontrast head CT are normal. - EKG Interpretation by Me Additional EKG results interpreted by me: 06/24/19 08:36 Twelve-lead EKG from 0548 hrs. is reviewed by me and is normal in appearance showing normal sinus rhythm of 72 normal axis and intervals and no acute ST/T wave changes. Discharge - Discharge Clinical Impression: Hypotonic dehydration with hyponatremia Condition: Stable Disposition: HOME, SELF-CARE Additional Instructions: Hyponatremia You have an abnormally low level of serum sodium, called hyponatremia. Low serum sodium may cause weakness, fatigue, confusion, or even seizures. Usually, low sodium is due to taking diuretics (water pills), combined with drinking too much water. It can also be due to excessive vomiting or diarrhea. If no obvious cause is evident, further evaluation will be necessary. If the hyponatremia results from taking diuretics, it's treated by restricting the amount of water you can drink. If it's due to vomiting and diarrhea, it's treated by drinking liberal amounts of rehydration solution (for example Lytren or Pedialyte). A follow-up blood test is often done to see that the sodium is returning to normal. Call the physician if you have severe weakness, muscle twitching or cramping, palpitations (pounding or irregular heartbeat), confusion, headache, seizures, or any other new or alarming symptoms. Increase your fluid intake as directed. See your doctor within the next 3 days to have your sodium level rechecked. Return here as needed for new or worsening symptoms. Referrals: TRAE AGOSTO MD [Primary Care Provider] - Follow up as needed
--- NOTE | 2019-06-24 09:16 | RADIOLOGY REPORT (SQ) ---
EXAM DESCRIPTION: CT HEAD WITHOUT COMPLETED DATE/TIME: 06/24/2019 8:47 am REASON FOR STUDY: vertigo COMPARISON: None. TECHNIQUE: Axial images acquired through the brain without intravenous contrast. Images reviewed wi th bone, brain and subdural windows. Additional sagittal and coronal reconstructions were generated. Images stored on PACS. All CT scanners at this facility use dose modulation, iterative reconstruction, and/or weight based d osing when appropriate to reduce radiation dose to as low as reasonably achievable (ALARA). [facility]: Dose Right [facility]: CareDose [facility]: Dose Right [facility]: Teradose 4D [facility]: Bio-Adhesive Alliance RADIATION DOSE: CT Rad equipment meets quality standard of care and radiation dose reduction techniq ues were employed. CTDIvol: 53.2 mGy. DLP: 911 mGy-cm. mGy. LIMITATIONS: None. FINDINGS: VENTRICLES: Normal size and contour. CEREBRUM: No masses. No hemorrhage. No midline shift. No evidence for acute infarction. Normal gra y/white matter differentiation. No areas of low density in the white matter. CEREBELLUM: No masses. No hemorrhage. No alteration of density. No evidence for acute infarction. EXTRAAXIAL SPACES: No fluid collections. No masses. ORBITS AND GLOBE: No intra- or extraconal masses. Normal contour of globe without masses. CALVARIUM: No fracture. PARANASAL SINUSES: No fluid or mucosal thickening. SOFT TISSUES: No mass or hematoma. OTHER: No other significant finding. IMPRESSION: No evidence of acute intracranial process. EVIDENCE OF ACUTE STROKE: NO. COMMENT: Quality ID # [id number]: Final reports with documentation of one or more dose reduction techniques (e.g., Automated exposure control, adjustment of the mA and/or kV according to patient size, use of iterative reconstruction technique) TECHNICAL DOCUMENTATION: JOB ID: [id number] 2010 [employer]- All Rights Reserved Reading location - IP/workstation name: [email or web address]
--- NOTE | 2019-06-24 09:17 | RADIOLOGY REPORT (SQ) ---
EXAM DESCRIPTION: CHEST 2 VIEWS COMPLETED DATE/TIME: 06/24/2019 8:55 am REASON FOR STUDY: hyponatremia COMPARISON: 01/08/2016 EXAM PARAMETERS: NUMBER OF VIEWS: two views TECHNIQUE: Digital Frontal and Lateral radiographic views of the chest acquired. RADIATION DOSE: NA LIMITATIONS: none FINDINGS: LUNGS AND PLEURA: No opacities, masses or pneumothorax. No pleural effusion. MEDIASTINUM AND HILAR STRUCTURES: No masses or contour abnormalities. HEART AND VASCULAR STRUCTURES: Heart normal size. No evidence for failure. BONES: No acute findings. HARDWARE: None in the chest. OTHER: No other significant finding. IMPRESSION: NO ACUTE RADIOGRAPHIC FINDING IN THE CHEST. TECHNICAL DOCUMENTATION: JOB ID: [id number] 2010 [employer]- All Rights Reserved Reading location - IP/workstation name: [email or web address]
[2019-06-24 11:30] LABS: ANION GAP 8 (5-19); BLOOD UREA NITROGEN 26 mg/dL (7-20); CALCIUM 8.5 mg/dL (8.4-10.2); CARBON DIOXIDE 26 mmol/L (22-30); CHLORIDE 99 mmol/L (98-107); GLUCOSE 198 mg/dL (75-110); POTASSIUM 4.8 mmol/L (3.6-5.0)
[2019-06-24 13:13] VITALS: BP 131/66
--- NOTE | 2019-06-24 18:18 | EKG REPORT ---
SEVERITY:- NORMAL ECG - SINUS RHYTHM : Confirmed by: Carolann Smart 24-Jun-2019 18:17:14
== END 2019-06-24 13:14 | disposition home or self-care (01) ==
LOC: ER 05:37
DX: E87.1 Hypo-osmolality and hyponatremia (principal); E86.0 Dehydration; R42 Dizziness and giddiness; R63.0 Anorexia; R11.0 Nausea; Z88.8 Allergy status to other drugs, medicaments and biological substances; I25.10 Atherosclerotic heart disease of native coronary artery without angina pectoris; E11.9 Type 2 diabetes mellitus without complications; I10 Essential (primary) hypertension; E03.9 Hypothyroidism, unspecified
CPT/HCPCS: 93005; 99284; 96360; 96361; 36415; 82553; 82962; 82550; 85025; 80053; 81001; 84484; 71046; 70450; 93010; J7030

== ENCOUNTER 2019-09-07 04:01 | Emergency (ER) | payer MEDICARE, MEDICAID ==
[2019-09-07] MEDS ORDERED: ONDANSETRON 4 MG TAB.RAPDIS PO ONE (04:55)
[2019-09-07 05:28] LABS: ABSOLUTE EOSINOPHILS # (AUTO) 0.1 10^3/uL (0.0-0.6); ABSOLUTE LYMPHOCYTES (AUTO) 0.8 10^3/uL (0.5-4.7); ABSOLUTE MONOCYTES (AUTO) 0.3 10^3/uL (0.1-1.4); ABSOLUTE NEUT (AUTO) 6.6 10^3/uL (1.7-8.2); BASOPHILS % (AUTO) 0.5 % (0-2); EOSINOPHILS % (AUTO) 1.8 % (0-6); HEMATOCRIT 32.3 % (36.0-47.0); LYMPHOCYTES % (AUTO) 10.3 % (13-45); MEAN CORPUSCULAR HEMOGLOBIN 30.4 pg (27.0-33.4); MEAN CORPUSCULAR HGB CONC 34.1 g/dL (32.0-36.0); MEAN CORPUSCULAR VOLUME 89 fl (80-97); MONOCYTES % (AUTO) 3.8 % (3-13); PLATELET COUNT 246 10^3/uL (150-450); RED BLOOD COUNT 3.62 10^6/uL (3.72-5.28); RED CELL DISTRIBUTION WIDTH 13.8 % (11.5-14.0); SEGMENTED NEUTROPHILS % (AUTO) 83.6 % (42-78); TOTAL CELLS COUNTED % (AUTO) 100 %; WHITE BLOOD COUNT 7.9 10^3/uL (4.0-10.5)
[2019-09-07 05:38] LABS: ALBUMIN 4.1 g/dL (3.5-5.0); ALKALINE PHOSPHATASE 122 U/L (38-126); ANION GAP 10 (5-19); ASPARTATE AMINO TRANSFERASE 29 U/L (14-36); BILIRUBIN,TOTAL 0.4 mg/dL (0.2-1.3); BLOOD UREA NITROGEN 29 mg/dL (7-20); CALCIUM 8.8 mg/dL (8.4-10.2); CARBON DIOXIDE 24 mmol/L (22-30); CHLORIDE 90 mmol/L (98-107); CREATINE KINASE 118 U/L (30-135); GLUCOSE 188 mg/dL (75-110); POTASSIUM 4.9 mmol/L (3.6-5.0); TOTAL PROTEIN 6.8 g/dL (6.3-8.2)
[2019-09-07 05:49] LABS: CREATINE KINASE MB 3.23 ng/mL (<4.55)
[2019-09-07 05:54] LABS: TROPONIN I < 0.012 ng/mL
[2019-09-07 05:58] LABS: APPEARANCE,URINE CLEAR; BILIRUBIN,URINE NEGATIVE (NEGATIVE); COLOR,URINE STRAW; GLUCOSE, URINE 50 mg/dL (NEGATIVE); KETONES,URINE NEGATIVE (NEGATIVE); LEUKOCYTE ESTERASE,URINE NEGATIVE (NEGATIVE); NITRITE,URINE NEGATIVE (NEGATIVE); PROTEIN,URINE NEGATIVE (NEGATIVE); URINE SPECIFIC GRAVITY 1.011; UROBILINOGEN,URINE NEGATIVE mg/dL (<2.0)
[2019-09-07] MEDS ORDERED: NORMAL SALINE 1000 ML 1,000 ML IV ONE ×2 (06:30)
--- NOTE | 2019-09-07 07:08 | ER Document Report ---
ED General - General Chief Complaint: Vomiting Stated Complaint: POSSIBLE DEHYDRATION Time Seen by Provider: 09/07/19 06:21 Primary Care Provider: TRAE AGOSTO MD [Primary Care Provider] - Follow up as needed Mode of Arrival: Ambulatory Information source: Patient TRAVEL OUTSIDE OF THE [place] IN LAST 30 DAYS: No - HPI Notes: Patient presents stating that she feels she may be dehydrated. She states she has had some vomiting for about 12 hours and is felt somewhat lightheaded and dizzy. She states she currently feels better. She states she felt that her sugar was low so she took some "glucose pills" and now feels better. She denies any trouble with stool. No fevers. No cough cold or congestion. She has had some weakness. This weakness has been constant. It is worse with exertion and better with rest. It does radiate throughout her body. It has been moderate in intensity but is currently better. - Related Data Allergies/Adverse Reactions: erythromycin base Allergy (Intermediate, Verified 09/07/19 04:34) HIVES, FACIAL SWELLING codeine Adverse Reaction (Intermediate, Verified 09/07/19 04:34) NAUSEA, VOMITING Past Medical History - General Information source: Patient - Social History Smoking Status: Never Smoker Frequency of alcohol use: None Drug Abuse: None Family History: Reviewed & Not Pertinent Patient has homicidal ideation: No - Past Medical History Cardiac Medical History: Reports: Hx Coronary Artery Disease - HIGH CHOL, Hx Hypercholesterolemia, Hx Hypertension Denies: Hx Heart Attack Pulmonary Medical History: Denies: Hx Asthma, Hx Bronchitis, Hx COPD, Hx Pneumonia Neurological Medical History: Denies: Hx Cerebrovascular Accident, Hx Seizures Endocrine Medical History: Reports: Hx Diabetes Mellitus Type 2 - on insulin, Hx Hypothyroidism Renal/ Medical History: Denies: Hx Peritoneal Dialysis Musculoskeletal Medical History: Reports Hx Arthritis Psychiatric Medical History: Reports: Hx Depression - Immunizations Hx Diphtheria, Pertussis, Tetanus Vaccination: Yes Hx Pneumococcal Vaccination: 01/26/16 Review of Systems - Review of Systems Constitutional: Malaise, Weakness. denies: Chills, Fever Cardiovascular: denies: Chest pain, Palpitations Respiratory: denies: Cough, Short of breath -: Yes All other systems reviewed and negative Physical Exam - Vital signs Vitals: Temp Pulse Resp BP Pulse Ox 98.0 F 78 18 167/61 H 99 09/07/19 04:21 09/07/19 04:21 09/07/19 04:21 09/07/19 04:21 09/07/19 04:21 Interpretation: Hypertensive - General General appearance: Appears well, Alert - HEENT Head: Normocephalic, Atraumatic Eyes: Normal Pupils: PERRL - Respiratory Respiratory status: No respiratory distress Chest status: Nontender Breath sounds: Normal Chest palpation: Normal - Cardiovascular Rhythm: Regular Heart sounds: Normal auscultation Murmur: No - Abdominal Inspection: Normal Distension: No distension Bowel sounds: Normal Tenderness: Nontender Organomegaly: No organomegaly - Back Back: Normal, Nontender - Extremities General upper extremity: Normal inspection, Nontender, Normal color, Normal ROM, Normal temperature General lower extremity: Normal inspection, Nontender, Normal color, Normal ROM, Normal temperature, Normal weight bearing. No: Noah's sign - Neurological Neuro grossly intact: Yes Cognition: Normal Orientation: AAOx4 Josh Coma Scale Eye Opening: Spontaneous [place] Coma Scale Verbal: Oriented Josh Coma Scale Motor: Obeys Commands [place] Coma Scale Total: 15 Speech: Normal Motor strength normal: LUE, RUE, LLE, RLE Sensory: Normal - Psychological Associated symptoms: Normal affect, Normal mood - Skin Skin Temperature: Warm Skin Moisture: Dry Skin Color: Normal Course - Re-evaluation Re-evalutation: 09/07/19 07:07 Patient's labs returned showing her to have significant hyponatremia with a sodium of 123. However she seems relatively asymptomatic at this time. I am going to try and rehydrate the patient with IV normal saline and then recheck her sodium. If it remains significantly low she may require admission. 09/07/19 10:59 Repeat laboratories show patient have a significantly increased sodium to 130. She does have some evidence of mild dehydration. I will discharge the patient home with instructions about oral rehydration. - Vital Signs Vital signs: Temp Pulse Resp BP Pulse Ox 98.0 F 65 18 120/61 94 09/07/19 04:34 09/07/19 06:58 09/07/19 06:58 09/07/19 07:00 09/07/19 07:01 - Laboratory Result Diagrams: 09/07/19 05:02 09/07/19 10:27 Laboratory results interpreted by me: 09/07/19 09/07/19 09/07/19 04:45 05:02 05:02 RBC 3.62 L Hgb 11.0 L Hct 32.3 L Lymph % (Auto) 10.3 L Seg Neutrophils % 83.6 H Sodium 123.7 L Chloride 90 L Carbon Dioxide BUN 29 H Glucose 188 H POC Glucose 198 H Calcium Urine Glucose (UA) 09/07/19 09/07/19 05:39 10:27 RBC Hgb Hct Lymph % (Auto) Seg Neutrophils % Sodium 130.8 L Chloride Carbon Dioxide 21 L BUN 21 H Glucose 158 H POC Glucose Calcium 8.1 L Urine Glucose (UA) 50 H - EKG Interpretation by Ar EKG shows normal: Sinus rhythm Rate: Normal - 70 Rhythm: NSR [place]/QRS: No: Right axis deviation, Left axis deviation Discharge - Discharge Clinical Impression: Dehydration, Hyponatremia Condition: Stable Disposition: HOME, SELF-CARE Instructions: Dehydration ([facility]), Hyponatremia ([facility]) Additional Instructions: Please have your sodium rechecked by the end of the week by your family physician. Forms: Return to Work Referrals: TRAE AGOSTO MD [Primary Care Provider] - 09/09/19
--- NOTE | 2019-09-07 07:33 | EKG REPORT ---
SEVERITY:- ABNORMAL ECG - SINUS RHYTHM RIGHT ATRIAL ABNORMALITY : Confirmed by: Magdy Alicea MD 07-Sep-2019 07:32:13
[2019-09-07 10:56] LABS: ANION GAP 7 (5-19); BLOOD UREA NITROGEN 21 mg/dL (7-20); CALCIUM 8.1 mg/dL (8.4-10.2); CARBON DIOXIDE 21 mmol/L (22-30); CHLORIDE 103 mmol/L (98-107); GLUCOSE 158 mg/dL (75-110); POTASSIUM 4.7 mmol/L (3.6-5.0)
[2019-09-07 11:17] VITALS: BP 106/91
== END 2019-09-07 11:18 | disposition home or self-care (01) ==
LOC: ER 04:01
DX: E87.1 Hypo-osmolality and hyponatremia (principal); E86.0 Dehydration; R53.1 Weakness; R53.81 Other malaise; I25.10 Atherosclerotic heart disease of native coronary artery without angina pectoris; I10 Essential (primary) hypertension; E11.9 Type 2 diabetes mellitus without complications; Z88.1 Allergy status to other antibiotic agents
CPT/HCPCS: 93005; 99284; 96360; 96361; 36415; 82553; 82962; 82550; 85025; 80053; 81001; 84484; 93010; A9270; J7030; S0119

== ENCOUNTER 2019-09-28 23:07 | Observation (INO) | payer MEDICAID, MEDICARE ==
[2019-09-29] MEDS ORDERED: ONDANSETRON HCL INJ/PF 4 MG/2 ML SDV IV ONE (03:47)
[2019-09-29] MEDS ORDERED: NORMAL SALINE 1000 ML 1,000 ML IV ONE (03:47)
[2019-09-29 04:23] LABS: ABSOLUTE BASOPHILS # (AUTO) 0.1 10^3/uL (0.0-0.2); ABSOLUTE EOSINOPHILS # (AUTO) 0.1 10^3/uL (0.0-0.6); ABSOLUTE LYMPHOCYTES (AUTO) 0.7 10^3/uL (0.5-4.7); ABSOLUTE MONOCYTES (AUTO) 0.3 10^3/uL (0.1-1.4); ABSOLUTE NEUT (AUTO) 8.6 10^3/uL (1.7-8.2); BASOPHILS % (AUTO) 0.6 % (0-2); EOSINOPHILS % (AUTO) 1.2 % (0-6); HEMATOCRIT 33.4 % (36.0-47.0); HEMOGLOBIN 11.3 g/dL (12.0-15.5); LYMPHOCYTES % (AUTO) 7.4 % (13-45); MEAN CORPUSCULAR HEMOGLOBIN 30.4 pg (27.0-33.4); MEAN CORPUSCULAR HGB CONC 33.9 g/dL (32.0-36.0); MEAN CORPUSCULAR VOLUME 90 fl (80-97); MONOCYTES % (AUTO) 3.2 % (3-13); PLATELET COUNT 262 10^3/uL (150-450); RED BLOOD COUNT 3.72 10^6/uL (3.72-5.28); RED CELL DISTRIBUTION WIDTH 13.5 % (11.5-14.0); SEGMENTED NEUTROPHILS % (AUTO) 87.6 % (42-78); TOTAL CELLS COUNTED % (AUTO) 100 %; WHITE BLOOD COUNT 9.8 10^3/uL (4.0-10.5)
[2019-09-29 04:30] LABS: APPEARANCE,URINE CLEAR; BILIRUBIN,URINE NEGATIVE (NEGATIVE); COLOR,URINE COLORLESS; GLUCOSE, URINE >=500 mg/dL (NEGATIVE); KETONES,URINE TRACE mg/dL (NEGATIVE); LEUKOCYTE ESTERASE,URINE NEGATIVE (NEGATIVE); NITRITE,URINE NEGATIVE (NEGATIVE); PROTEIN,URINE NEGATIVE (NEGATIVE); URINE SPECIFIC GRAVITY 1.002; UROBILINOGEN,URINE NEGATIVE mg/dL (<2.0)
[2019-09-29 04:40] LABS: ALBUMIN 4.1 g/dL (3.5-5.0); ALKALINE PHOSPHATASE 128 U/L (38-126); ANION GAP 9 (5-19); ASPARTATE AMINO TRANSFERASE 27 U/L (14-36); BILIRUBIN,TOTAL 0.7 mg/dL (0.2-1.3); BLOOD UREA NITROGEN 23 mg/dL (7-20); CALCIUM 9.3 mg/dL (8.4-10.2); CARBON DIOXIDE 25 mmol/L (22-30); CHLORIDE 92 mmol/L (98-107); GLUCOSE 358 mg/dL (75-110); POTASSIUM 5.7 mmol/L (3.6-5.0); TOTAL PROTEIN 6.7 g/dL (6.3-8.2)
--- NOTE | 2019-09-29 05:04 | ER Document Report ---
ED General - General TRAVEL OUTSIDE OF THE [place] IN LAST 30 DAYS: No <BOBBY CARDENAS - Last Filed: 09/29/19 07:53> <RUPRESTON Dre - Last Filed: 09/29/19 18:18> - General Chief Complaint: Nausea/Vomiting Stated Complaint: VOMITTING Time Seen by Provider: 09/29/19 03:29 Notes: Patient is a 64-year-old female that comes emergency department for chief complaint of nausea and vomiting. She states that she has not had any abdominal pain or chest pain, she states that after she ate her meatloaf tonight she started getting nauseated and then she vomited several times. She states that she was seen previously for similar episode. She denies flank pain, headache, or any current symptoms other than occasional nausea which causes her to vomit. She denies fever/chills. She denies any abdominal surgeries. Past medical history includes hypertension, type 2 diabetes, hypothyroidism. (BOBBY CARDENAS) - Related Data Allergies/Adverse Reactions: erythromycin base Allergy (Intermediate, Verified 09/07/19 04:34) HIVES, FACIAL SWELLING codeine Adverse Reaction (Intermediate, Verified 09/07/19 04:34) NAUSEA, VOMITING Past Medical History - General Information source: Patient - Social History Smoking Status: Never Smoker Frequency of alcohol use: None Drug Abuse: None Lives with: Family Family History: Reviewed & Not Pertinent Patient has homicidal ideation: No - Past Medical History Cardiac Medical History: Reports: Hx Hypercholesterolemia, Hx Hypertension Denies: Hx Heart Attack Pulmonary Medical History: Denies: Hx Asthma, Hx Bronchitis, Hx COPD, Hx Pneumonia Neurological Medical History: Denies: Hx Cerebrovascular Accident, Hx Seizures Endocrine Medical History: Reports: Hx Diabetes Mellitus Type 2 - on insulin, Hx Hypothyroidism Renal/ Medical History: Denies: Hx Peritoneal Dialysis Musculoskeletal Medical History: Reports Hx Arthritis Psychiatric Medical History: Reports: Hx Depression - Immunizations Hx Diphtheria, Pertussis, Tetanus Vaccination: Yes Hx Pneumococcal Vaccination: 01/26/16 <BOBBY CARDENAS - Last Filed: 09/29/19 07:53> Review of Systems - Review of Systems Constitutional: No symptoms reported EENT: No symptoms reported Cardiovascular: No symptoms reported Respiratory: No symptoms reported Gastrointestinal: See HPI Genitourinary: No symptoms reported Female Genitourinary: No symptoms reported Musculoskeletal: No symptoms reported Skin: No symptoms reported Hematologic/Lymphatic: No symptoms reported Neurological/Psychological: No symptoms reported <BOBBY CARDENAS - Last Filed: 09/29/19 07:53> Physical Exam <BOBBY CARDENAS - Last Filed: 09/29/19 07:53> - Vital signs Vitals: Temp Pulse Resp BP Pulse Ox 98.5 F 72 16 142/72 H 100 09/28/19 23:55 09/28/19 23:55 09/28/19 23:55 09/28/19 23:55 09/28/19 23:55 - Notes Notes: GENERAL: Alert, interacts well. No acute distress. HEAD: Normocephalic, atraumatic. EYES: Pupils equal, round, and reactive to light. Extraocular movements intact. ENT: Oral mucosa moist, tongue midline. Oropharynx unremarkable. Airway patent. NECK: Full range of motion. Supple. Trachea midline. No lymphadenopathy. LUNGS: Clear to auscultation bilaterally, no wheezes, rales, or rhonchi. No respiratory distress. Non-tender chest wall. HEART: Regular rate and rhythm. No murmur ABDOMEN: Soft, non-tender. Non-distended. Bowel sounds present in all 4 quadrants. GENITOURINARY: Deferred EXTREMITIES: Moves all 4 extremities spontaneously. No edema, normal radial and dorsalis pedis pulses bilaterally. No cyanosis. BACK: no cervical, thoracic, lumbar midline tenderness. No saddle anesthesia, normal distal neurovascular exam. Moves all extremities in full range of motion. NEUROLOGICAL: Alert and oriented x3. Normal speech. Cranial nerves II through XII grossly intact. Strength 5/5 in all extremities. PSYCH: Normal affect, normal mood. SKIN: Warm, dry, normal turgor. No rashes or lesions noted. (BOBBY CARDENAS) Course - Laboratory Result Diagrams: 09/29/19 04:11 09/29/19 05:38 <BOBBY CARDENAS - Last Filed: 09/29/19 07:53> - Laboratory Result Diagrams: 09/29/19 04:11 09/29/19 05:38 <PRESTON VENCES - Last Filed: 09/29/19 18:18> - Re-evaluation Re-evalutation: Patient is smiling, talkative, well-appearing. Her abdomen is soft and benign. Her presentation of just nausea and vomiting with no other symptoms is slightly strange although patient endorses having similar episodes in the past. She insists that it is from her greasy meatloaf tonight. CBC unremarkable. Chemistry shows surprisingly low sodium at 125.9, however this was noted to be very similar in the past. I asked patient about this, she states that she has been told it was low in the past, she also states that she "drinks a ton of water" when I asked about her sodium. She is not on a diuretic. She states she has never been told specific reason for her low sodium. Patient had already been given IV fluids before this was noted to be low, fortunately patient does not have any obvious symptoms of this on my evaluation and her symptoms of nausea and vomiting from the forehead already resolved. She has no complaints on reevaluation. Chemistry ultrasound was hyperglycemia without acidosis and elevated potassium at 5.7. There are peaked T waves on EKG but this is not changed from prior. QT interval unremarkable. Troponin is indeterminate at 0.040, previously negative. Patient is requesting to leave, she states she feels fine and she is ready to go home. However because of her abnormal electrolytes, indeterminate troponin without obvious cause of her symptoms, I did discuss with patient and she did agree to have a repeat BMP and repeat troponin. (BOBBY CARDENAS) Report given by Bobby Cardenas at 0815. Insulin-dependent type 2 diabetic who is awaiting her second troponin, which is pending. Initial troponin at 0.04, is indeterminate. Patient is asymptomatic and is not having any chest pain at this time. Patient potassium has increased from 125.9-129. She states she is feeling much better after IV fluids. Patient did have an elevated potassium initially but again after a bag of fluids, her potassium did reduce down to 5.2. After discussing history with patient, her father did pass away from an [place] at age 45. Being that she is a type II diabetic, morbidly obese, over the age of 43, has history of hyperlipidemia with 2 indeterminate troponins as well as peak T waves which has also been seen on previous EKGs, I do feel that patient is reasonable for observation. Consulted with Dr. Julian Carbone, hospitalist ophthalmic surgeon at 0940, he stated he would keep her for observation but I had to consult Dr. Queen. Consulted with Dr. Queen, personal secretary ophthalmic surgeon at 0944. He felt that due to her past medical history, her family history along with her 2 indeterminate troponins and peak T waves on EKG that has been seen in previous EKGs that she should be admitted for observation and receive an echocardiogram as well as trending troponins. Consulted with Dr.Ifeanyichu Willams, admitting hospitalist at 1032 who accepted patient to medical service for observation on telemetry floor. Patient was agreeable with this plan of care and agree with plan of care. 09/29/19 18:13 (PRESTON VENCES) - Vital Signs Vital signs: Temp Pulse Resp BP Pulse Ox 98 F 68 20 142/53 H 100 09/29/19 16:55 09/29/19 16:55 09/29/19 16:55 09/29/19 16:55 09/29/19 16:55 - Laboratory Laboratory results interpreted by me: 09/29/19 09/29/19 09/29/19 04:11 04:11 04:15 Hgb 11.3 L Hct 33.4 L Lymph % (Auto) 7.4 L Absolute Neuts (auto) 8.6 H Seg Neutrophils % 87.6 H Sodium 125.9 L Potassium 5.7 H Chloride 92 L BUN 23 H Glucose 358 H POC Glucose Alkaline Phosphatase 128 H Urine Glucose (UA) >=500 H Urine Ketones TRACE H Urine Osmolality 09/29/19 09/29/19 09/29/19 04:15 05:38 10:07 Hgb Hct Lymph % (Auto) Absolute Neuts (auto) Seg Neutrophils % Sodium 129.6 L Potassium 5.2 H Chloride BUN 21 H Glucose 328 H POC Glucose 299 H Alkaline Phosphatase Urine Glucose (UA) Urine Ketones Urine Osmolality 162 L - EKG Interpretation by Me Additional EKG results interpreted by me: EKG shows sinus rhythm at a rate of 83, QTC of 461, normal axis. No T wave inversions or ST segment changes in consecutive leads. Peaked T waves noted. (BOBBY CARDENAS) Discharge <BOBBY CARDENAS - Last Filed: 09/29/19 07:53> - Discharge Admitting Provider: Imer (Hospitalist) Unit Admitted: Telemetry <PRESTON VENCES - Last Filed: 09/29/19 18:18> - Discharge Clinical Impression: Hyperglycemia, Elevated troponin, Type 2 diabetes mellitus Vomiting Qualifiers: Vomiting type: unspecified Vomiting Intractability: non-intractable Nausea presence: with nausea Qualified Code(s): R11.2 - Nausea with vomiting, unspecified Condition: Stable Disposition: ADMITTED OBSERVATION
[2019-09-29] MEDS ORDERED: FAMOTIDINE 20 MG TABLET PO ONE (05:24)
[2019-09-29 05:59] LABS: ANION GAP 8 (5-19); BLOOD UREA NITROGEN 21 mg/dL (7-20); CALCIUM 8.9 mg/dL (8.4-10.2); CARBON DIOXIDE 24 mmol/L (22-30); CHLORIDE 98 mmol/L (98-107); GLUCOSE 328 mg/dL (75-110); POTASSIUM 5.2 mmol/L (3.6-5.0)
--- NOTE | 2019-09-29 07:46 | EKG REPORT ---
SEVERITY:- ABNORMAL ECG - SINUS RHYTHM RAA, CONSIDER BIATRIAL ABNORMALITIES NEED TO R/O HYPERKALEMIA : Confirmed by: Magdy Alicea MD 29-Sep-2019 07:46:09
[2019-09-29] MEDS ORDERED: CALCIUM GLUC IN NACL, ISO-OSM 1 GM/50 ML RTUPB IV ONE (10:58)
[2019-09-29] MEDS ORDERED: MAG HYDROX/AL HYDROX/SIMETH SUSP 30 ML UDCUP PO PRN (11:28)
[2019-09-29] MEDS ORDERED: ONDANSETRON HCL INJ/PF 4 MG/2 ML SDV IV PRN (11:28)
[2019-09-29] MEDS ORDERED: ACETAMINOPHEN 325 MG TABLET PO PRN (11:32)
[2019-09-29] MEDS ORDERED: DEXTROSE 40% GEL 15 GM TUBE PO PRN ×2 (11:33)
[2019-09-29] MEDS ORDERED: GLUCAGON,HUMAN RECOMB 1 MG INJ IM PRN (11:33)
[2019-09-29] MEDS ORDERED: DEXTROSE 50%-WATER 25 GM/50 ML DISP.SYRIN IV PRN ×2 (11:33)
--- NOTE | 2019-09-29 12:18 | RADIOLOGY REPORT (SQ) ---
EXAM DESCRIPTION: CHEST SINGLE VIEW IMAGES COMPLETED DATE/TIME: 09/29/2019 11:29 am REASON FOR STUDY: vomiting COMPARISON: 06/24/2019 EXAM PARAMETERS: NUMBER OF VIEWS: One view. TECHNIQUE: Single frontal radiographic view of the chest acquired. RADIATION DOSE: NA LIMITATIONS: None. FINDINGS: LUNGS AND PLEURA: No opacities, masses or pneumothorax. No pleural effusion. MEDIASTINUM AND HILAR STRUCTURES: No masses. Contour normal. HEART AND VASCULAR STRUCTURES: Heart normal in size. Normal vasculature. BONES: No acute findings. HARDWARE: None in the chest. OTHER: No other significant finding. IMPRESSION: NO ACUTE RADIOGRAPHIC FINDING IN THE CHEST. TECHNICAL DOCUMENTATION: JOB ID: [id number] 2010 [email or web address]- All Rights Reserved Reading location - IP/workstation name: [email or web address]
--- NOTE | 2019-09-29 12:21 | EKG REPORT ---
SEVERITY:- BORDERLINE ECG - SINUS RHYTHM TALL PEAKED T WAVES, CONSIDER HYPERKALEMIA. : Confirmed by: Magdy Alicea MD 29-Sep-2019 12:20:37
--- NOTE | 2019-09-29 12:28 | PDOC H&P ---
History of Present Illness Admission Date/PCP: 09/29/19 10:52 TRAE AGOSTO MD History of Present Illness: KRISTEN GATES is a 64 year old female with history of diabetes mellitus type 2, hypertension, hyperlipidemia, hypothyroidism, who presents to the hospital with complaints of nausea and vomiting since yesterday. Patient stated that she had some meatloaf with hamburger yesterday night and thinks this may have triggered it. She had about 5 episodes of vomiting which was nonbilious and nonbloody since then. She denies any abdominal pain, chest pain or shortness of breath. Currently states nausea is improved and she thinks she may be able to try diet. In the ER, patient was noted to have mildly elevated troponin and hyperkalemic with peaked T waves and subsequently referred for admission. Past Medical History Cardiac Medical History: Reports: Hyperlipidema, Hypertension Denies: Myocardial Infarction Pulmonary Medical History: Denies: Asthma, Bronchitis, Chronic Obstructive Pulmonary Disease (COPD), Pneumonia Neurological Medical History: Denies: Seizures Endocrine Medical History: Reports: Diabetes Mellitus Type 2 - on insulin, Hypothyroidism Musculoskeltal Medical History: Reports: Arthritis Psychiatric Medical History: Reports: Depression Hematology: Reports: Anemia - TAKES IRON Past Surgical History Past Surgical History: Denies: Cardiac Catheterization, Coronary Artery Bypass Graft Social History Lives with: Family Smoking Status: Never Smoker Frequency of Alcohol Use: None Hx Recreational Drug Use: No Hx Prescription Drug Abuse: No - Advance Directive Resuscitation Status: Full Code Family History Family History: DM, Hypertension Parental Family History Reviewed: Yes Children Family History Reviewed: Unknown Sibling(s) Family History Reviewed.: Unknown Medication/Allergy Home Medications: Aspirin [Aspirin 81 mg Chewable Tablet] 81 mg PO DAILY 01/03/16 Atorvastatin Calcium [Lipitor 10 mg Tablet] 10 mg PO QHS 01/03/16 Insulin Regular, Human [Novolin R (Reg) Insulin 100 unit/mL] 0 units SQ .SLIDINGSCALE 01/03/16 Lisinopril 10 mg PO DAILY 01/03/16 NPH, Human Insulin Isophane [Novolin N (NPH) Insulin 100 unit/mL] 13 units SQ BID 01/03/16 Acetaminophen [Tylenol 325 mg Tablet] 650 mg PO Q4HP PRN 09/29/19 Cetirizine HCl [Zyrtec 10 mg Tablet] 10 mg PO DAILY 09/29/19 Gabapentin [Neurontin 300 mg Capsule] 300 mg PO Q12 09/29/19 Levothyroxine Sodium 50 mcg PO Q6AM 09/29/19 Sertraline HCl [Zoloft 50 mg Tablet] 50 mg PO DAILY 09/29/19 Allergies/Adverse Reactions: erythromycin base Allergy (Intermediate, Verified 09/07/19 04:34) HIVES, FACIAL SWELLING codeine Adverse Reaction (Intermediate, Verified 09/07/19 04:34) NAUSEA, VOMITING Review of Systems Constitutional: ABSENT: chills, fever(s) Eyes: ABSENT: visual disturbances Nose, Mouth, and Throat: ABSENT: headache(s), sore throat Cardiovascular: ABSENT: chest pain Respiratory: ABSENT: cough, dyspnea Gastrointestinal: PRESENT: nausea, vomiting. ABSENT: abdominal pain, diarrhea Genitourinary: ABSENT: difficulty urinating, dysuria Musculoskeletal: ABSENT: joint swelling Integumentary: ABSENT: diaphoresis Neurological: ABSENT: dizziness Endocrine: ABSENT: polyuria Allergic/Immunologic: PRESENT: other - denies rhinorrhea or nasal congestion Physical Exam Vital Signs: Temp Pulse Resp BP Pulse Ox 98.3 F 86 14 129/53 H 100 09/29/19 03:38 09/29/19 03:36 09/29/19 11:01 09/29/19 11:01 09/29/19 11:01 Intake & Output 09/28/19 09/29/19 09/30/19 06:59 06:59 06:59 Intake Total 1000 Balance 1000 Weight 70.307 kg General appearance: PRESENT: no acute distress, cooperative Mouth exam: PRESENT: neck supple Neck exam: ABSENT: JVD Respiratory exam: PRESENT: clear to auscultation carlie, unlabored. ABSENT: tachypnea, wheezes Cardiovascular exam: PRESENT: RRR, +S1, +S2. ABSENT: tachycardia GI/Abdominal exam: PRESENT: soft. ABSENT: rebound, rigid, tenderness Extremities exam: ABSENT: pedal edema Neurological exam: PRESENT: alert, awake, oriented to person, oriented to place, oriented to time, oriented to situation Psychiatric exam: ABSENT: agitated, anxious Focused psych exam: ABSENT: pressured speech Skin exam: ABSENT: jaundice Results Laboratory Results: 09/29/19 04:11 09/29/19 05:38 09/29/19 09/29/19 09/29/19 04:11 04:11 04:15 WBC 9.8 RBC 3.72 Hgb 11.3 L Hct 33.4 L MCV 90 MCH 30.4 MCHC 33.9 RDW 13.5 Plt Count 262 Seg Neutrophils % 87.6 H Sodium 125.9 L Potassium 5.7 H Chloride 92 L Carbon Dioxide 25 Anion Gap 9 BUN 23 H Creatinine 0.85 Est GFR ( Amer) > 60 Glucose 358 H Calcium 9.3 Total Bilirubin 0.7 AST 27 Alkaline Phosphatase 128 H Total Protein 6.7 Albumin 4.1 Lipase 147.1 Urine Color COLORLESS Urine Appearance CLEAR Urine pH 7.0 Ur Specific [place] 1.002 Urine Protein NEGATIVE Urine Glucose (UA) >=500 H Urine Ketones TRACE H Urine Blood NEGATIVE Urine Nitrite NEGATIVE Ur Leukocyte Esterase NEGATIVE Urine WBC (Auto) 1 Urine RBC (Auto) 0 09/29/19 05:38 WBC RBC Hgb Hct MCV MCH MCHC RDW Plt Count Seg Neutrophils % Sodium 129.6 L Potassium 5.2 H Chloride 98 Carbon Dioxide 24 Anion Gap 8 BUN 21 H Creatinine 0.84 Est GFR ( Amer) > 60 Glucose 328 H Calcium 8.9 Total Bilirubin AST Alkaline Phosphatase Total Protein Albumin Lipase Urine Color Urine Appearance Urine pH Ur Specific [place] Urine Protein Urine Glucose (UA) Urine Ketones Urine Blood Urine Nitrite Ur Leukocyte Esterase Urine WBC (Auto) Urine RBC (Auto) 09/29/19 09/29/19 04:11 07:55 Troponin I 0.040 0.038 Assessment and Plan - Diagnosis (1) Hyperkalemia Is this a current diagnosis for this admission?: Yes Plan: Hyperkalemic at 5.9 on presentation with peak T waves noted on EKG. I have administered 1 g of calcium gluconate. I have also reviewed prior EKGs which shows that patient does have some mildly hyperacute T waves on prior EKGs even at times when patient has not been hype rkalemic. Patient has also had hypokalemia several times in the past. She is uncertain of the etiology of this. Potential etiologies include hypovolemia, lisinopril use. RTA less likely in the absence of acidosis. I will administer fluids and hold lisinopril. Chlorthalidone. Repeat BMP. (2) Elevated troponin Is this a current diagnosis for this admission?: Yes Plan: Minimally elevated troponin of 0.04 which down trended subsequently. Patient has no chest pain or shortness of breath. ACS is highly unlikely. Normal Sharmila can stress test done here in the hospital in 2018. Outpatient follow-up for further evaluation. (3) Gastroenteritis Is this a current diagnosis for this admission?: Yes Plan: Likely the etiology of patient's nonbilious nonbloody nausea vomiting after consumption of meat loaf and hamburger yesterday. Seems to have improved. Suppo rtive care with antiemetic and IV fluids. (4) Hyperglycemia due to type 2 diabetes mellitus Qualifiers: Diabetes mellitus fdc insulin use: with ferry terminal agent use Qualified Code(s): E11.65 - Type 2 diabetes mellitus with hyperglycemia; Z79.4 - terminal clerk (current) use of insulin Is this a current diagnosis for this admission?: Yes Plan: Resume patient's NPH and sliding scale insulin. Accu-Cheks. (5) Hyponatremia Is this a current diagnosis for this admission?: Yes Plan: Possible etiologies include hypovolemia given recent history of nausea vomiting. She does not appear overtly dehydrated. She does have history of hypothyroidism so I will check TSH. Also check a.m. cortisol given hyponatremia and hyperkalemia. (6) Hypertension Is this a current diagnosis for this admission?: Yes Plan: We will discontinue lisinopril due to multiple presentations with hyperkalemia. Will substitute with chlorthalidone. - Time Time Spent with patient: 35 or more minutes
[2019-09-29] MEDS ORDERED: INSULIN LISPRO 100 UNIT/ML 3 ML VIAL ONE (12:29)
[2019-09-29] MEDS: SERTRALINE HCL 50 MG TABLET PO SCH (12:39)
[2019-09-29] MEDS: GABAPENTIN 300 MG CAPSULE PO SCH ×2 (12:39→21:58)
[2019-09-29] MEDS: CHLORTHALIDONE 25 MG TABLET PO SCH (12:39)
[2019-09-29] MEDS: INSULIN NPH (ISOPHANE), HUMAN 100 UNIT/ML 3 ML SUBCUT SCH ×2 (12:44→15:52)
[2019-09-29] MEDS: NORMAL SALINE 1000 ML 1,000 ML IV PRN (15:13)
[2019-09-29] MEDS: INSULIN LISPRO 100 UNIT/ML 3 ML VIAL SUBCUT SCH ×2 (15:54→21:56)
--- NOTE | 2019-09-29 18:46 | EKG REPORT ---
SEVERITY:- OTHERWISE NORMAL ECG - SINUS RHYTHM RULE OUT HYPERKALEMIA : Confirmed by: Magdy Alicea MD 29-Sep-2019 18:45:16
[2019-09-29 20:05] LABS: ANION GAP 7 (5-19); BLOOD UREA NITROGEN 20 mg/dL (7-20); CALCIUM 9.4 mg/dL (8.4-10.2); CARBON DIOXIDE 28 mmol/L (22-30); CHLORIDE 98 mmol/L (98-107); GLUCOSE 209 mg/dL (75-110); POTASSIUM 4.8 mmol/L (3.6-5.0)
[2019-09-29] MEDS: FAMOTIDINE 20 MG TABLET PO SCH (21:57)
[2019-09-29] MEDS ORDERED: ATORVASTATIN CALCIUM 10 MG TABLET PO SCH (22:00)
[2019-09-30] MEDS: NORMAL SALINE 1000 ML 1,000 ML IV PRN (00:55)
[2019-09-30] MEDS ORDERED: LEVOTHYROXINE SODIUM 0.05 MG TABLET PO SCH (06:00)
[2019-09-30 06:36] LABS: BLOOD UREA NITROGEN 18 mg/dL (7-20); CALCIUM 9.2 mg/dL (8.4-10.2); GLUCOSE 107 mg/dL (75-110); POTASSIUM 4.5 mmol/L (3.6-5.0)
[2019-09-30 06:41] LABS: ANION GAP 5 (5-19); CARBON DIOXIDE 27 mmol/L (22-30); CHLORIDE 105 mmol/L (98-107)
[2019-09-30] MEDS: INSULIN LISPRO 100 UNIT/ML 3 ML VIAL SUBCUT SCH (07:42)
[2019-09-30] MEDS: INSULIN NPH (ISOPHANE), HUMAN 100 UNIT/ML 3 ML SUBCUT SCH (07:46)
[2019-09-30] MEDS ORDERED: ENOXAPARIN SODIUM INJ 40 MG/0.4 ML DISP.SYRIN SUBCUT SCH (10:00)
[2019-09-30] MEDS ORDERED: ASPIRIN 81 MG TABLET, CHEWABLE PO SCH (10:00)
[2019-09-30] MEDS ORDERED: CETIRIZINE 10 MG TABLET PO SCH (10:00)
[2019-09-30] MEDS: SERTRALINE HCL 50 MG TABLET PO SCH (10:15)
[2019-09-30] MEDS: GABAPENTIN 300 MG CAPSULE PO SCH (10:15)
[2019-09-30] MEDS: FAMOTIDINE 20 MG TABLET PO SCH (10:15)
[2019-09-30] MEDS: CHLORTHALIDONE 25 MG TABLET PO SCH (10:17)
[2019-09-30 12:03] VITALS: BP 142/53
--- NOTE | 2019-09-30 12:20 | PDOC DISCHARGE SUMMARY ---
Impression - Admit/DC Date/PCP Admission Date/Primary Care Provider: 09/29/19 10:52 TRAE AGOSTO MD Discharge Date: 09/30/19 - Discharge Diagnosis (1) Hyperkalemia Is this a current diagnosis for this admission?: Yes (2) Elevated troponin Is this a current diagnosis for this admission?: Yes (3) Gastroenteritis Is this a current diagnosis for this admission?: Yes (4) Hyperglycemia due to type 2 diabetes mellitus Is this a current diagnosis for this admission?: Yes (5) Hyponatremia Is this a current diagnosis for this admission?: Yes (6) Hypertension Is this a current diagnosis for this admission?: Yes - Additional Information Resuscitation Status: Full Code Discharge Diet: Diabetic Discharge Activity: Activity As Tolerated Referrals: TRAE AGOSTO MD [Primary Care Provider] - Follow up as needed Prescriptions: Chlorthalidone [Hygroton 25 mg Tablet] 25 mg PO DAILY #30 tablet Home Medications: Aspirin [Aspirin 81 mg Chewable Tablet] 81 mg PO DAILY 01/03/16 Atorvastatin Calcium [Lipitor 10 mg Tablet] 10 mg PO QHS 01/03/16 Insulin Regular, Human [Novolin R (Reg) Insulin 100 unit/mL] 0 units SQ .SLIDINGSCALE 01/03/16 NPH, Human Insulin Isophane [Novolin N (NPH) Insulin 100 unit/mL] 13 units SQ BID 01/03/16 Acetaminophen [Tylenol 325 mg Tablet] 650 mg PO Q4HP PRN 09/29/19 Cetirizine HCl [Zyrtec 10 mg Tablet] 10 mg PO DAILY 09/29/19 Gabapentin [Neurontin 300 mg Capsule] 300 mg PO Q12 09/29/19 Levothyroxine Sodium 50 mcg PO Q6AM 09/29/19 Sertraline HCl [Zoloft 50 mg Tablet] 50 mg PO DAILY 09/29/19 Chlorthalidone [Hygroton 25 mg Tablet] 25 mg PO DAILY #30 tablet 09/30/19 History of Present Illiness History of Present Illness: KRISTEN GATES is a 64 year old female with history of diabetes mellitus type 2, hypertension, hyperlipidemia, hypothyroidism, who presents to the hospital with complaints of nausea and vomiting since yesterday. Patient stated that she had some meatloaf with hamburger yesterday night and thinks this may have triggered it. She had about 5 episodes of vomiting which was nonbilious and nonbloody since then. She denies any abdominal pain, chest pain or shortness of breath. Currently states nausea is improved and she thinks she may be able to try diet. In the ER, patient was noted to have mildly elevated troponin and hyperkalemic with peaked T waves and subsequently referred for admission. Hospital Course Hospital Course: Patient was admitted and treated for hyponatremia secondary to hypovolemia from nausea and vomiting. She got fluids with improvement of her sodium levels. Hyperkalemia was also assessed. I suspect this may be secondary to her lisinopril use. I have stopped her lisinopril and put on chlorthalidone. Peak T waves were noted to be on patient's EKG initially but have improved with resolution of her hyperkalemia. She was also given some calcium gluconate during this admission. I have also reviewed her labs and EKGs from before which have been notable for hyperkalemia as well as peaked T waves in the past. Troponin was also 0.04 which trended down subsequently but patient had no chest pain, shortness of breath or any other evidence of ACS. Patient has been discharged in stable condition. Her nausea and vomiting was likely gastroenteritis from contaminated food. Her vomiting has resolved at this time. She feels good and ready to go home. Patient has been instructed to follow-up with a primary care provider within 2 to 3 weeks for repeat basic metabolic panel. Physical Exam Vital Signs: Temp Pulse Resp BP Pulse Ox 98.6 F 67 18 142/53 H 100 09/30/19 12:01 09/30/19 12:01 09/30/19 12:01 09/30/19 12:01 09/30/19 12:01 Intake & Output 09/29/19 09/30/19 10/01/19 06:59 06:59 06:59 Intake Total 1000 1240 Balance 1000 1240 Weight 70.307 kg 72.5 kg General appearance: PRESENT: no acute distress, cooperative Respiratory exam: PRESENT: unlabored Neurological exam: PRESENT: alert, awake, oriented to person, oriented to place, oriented to time Results Laboratory Results: WBC 9.8 10^3/uL (4.0-10.5) 09/29/19 04:11 RBC 3.72 10^6/uL (3.72-5.28) 09/29/19 04:11 Hgb 11.3 g/dL (12.0-15.5) L 09/29/19 04:11 Hct 33.4 % (36.0-47.0) L 09/29/19 04:11 MCV 90 fl (80-97) 09/29/19 04:11 MCH 30.4 pg (27.0-33.4) 09/29/19 04:11 MCHC 33.9 g/dL (32.0-36.0) 09/29/19 04:11 RDW 13.5 % (11.5-14.0) 09/29/19 04:11 Plt Count 262 10^3/uL (150-450) 09/29/19 04:11 Lymph % (Auto) 7.4 % (13-45) L 09/29/19 04:11 [place] % (Auto) 3.2 % (3-13) 09/29/19 04:11 Eos % (Auto) 1.2 % (0-6) 09/29/19 04:11 Baso % (Auto) 0.6 % (0-2) 09/29/19 04:11 Absolute Neuts (auto) 8.6 10^3/uL (1.7-8.2) H 09/29/19 04:11 Absolute Lymphs (auto) 0.7 10^3/uL (0.5-4.7) 09/29/19 04:11 Absolute Monos (auto) 0.3 10^3/uL (0.1-1.4) 09/29/19 04:11 Absolute Eos (auto) 0.1 10^3/uL (0.0-0.6) 09/29/19 04:11 Absolute Basos (auto) 0.1 10^3/uL (0.0-0.2) 09/29/19 04:11 Seg Neutrophils % 87.6 % (42-78) H 09/29/19 04:11 Sodium 136.9 mmol/L (137-145) L 09/30/19 05:19 Potassium 4.5 mmol/L (3.6-5.0) 09/30/19 05:19 Chloride 105 mmol/L (98-107) 09/30/19 05:19 Carbon Dioxide 27 mmol/L (22-30) 09/30/19 05:19 Anion Gap 5 (5-19) 09/30/19 05:19 BUN 18 mg/dL (7-20) 09/30/19 05:19 Creatinine 1.04 mg/dL (0.52-1.25) 09/30/19 05:19 Est GFR ( Amer) > 60 (>60) 09/30/19 05:19 Est GFR (MDRD) Non-Af 53 (>60) L 09/30/19 05:19 Glucose 107 mg/dL (75-110) 09/30/19 05:19 POC Glucose 255 mg/dL (70-110) H 09/30/19 11:28 Serum Osmolality 293 mOsm/kg (275-301) 09/29/19 07:55 Calcium 9.2 mg/dL (8.4-10.2) 09/30/19 05:19 Magnesium 1.9 mg/dL (1.6-2.3) 09/30/19 05:19 Total Bilirubin 0.7 mg/dL (0.2-1.3) 09/29/19 04:11 Direct Bilirubin 0.0 mg/dL (0.0-0.4) 09/29/19 04:11 Neonat Total Bilirubin Not Reportable 09/29/19 04:11 Neonat Direct Bilirubin Not Reportable 09/29/19 04:11 Neonat Indirect Bili Not Reportable 09/29/19 04:11 AST 27 U/L (14-36) 09/29/19 04:11 ALT 21 U/L (<35) 09/29/19 04:11 Alkaline Phosphatase 128 U/L (38-126) H 09/29/19 04:11 Troponin I 0.038 ng/mL 09/29/19 07:55 Total Protein 6.7 g/dL (6.3-8.2) 09/29/19 04:11 Albumin 4.1 g/dL (3.5-5.0) 09/29/19 04:11 Lipase 147.1 U/L (23-300) 09/29/19 04:11 TSH 0.96 uIU/mL (0.47-4.68) 09/29/19 07:55 Cortisol AM Sample 8.85 ug/dL (4.46-22.7) 06/18/20 07:55 Urine Color COLORLESS 09/29/19 04:15 Urine Appearance CLEAR 09/29/19 04:15 Urine pH 7.0 (5.0-9.0) 09/29/19 04:15 Ur Specific [place] 1.002 09/29/19 04:15 Urine Protein NEGATIVE mg/dL (NEGATIVE) 09/29/19 04:15 Urine Glucose (UA) >=500 mg/dL (NEGATIVE) H 09/29/19 04:15 Urine Ketones TRACE mg/dL (NEGATIVE) H 09/29/19 04:15 Urine Blood NEGATIVE (NEGATIVE) 09/29/19 04:15 Urine Nitrite NEGATIVE (NEGATIVE) 09/29/19 04:15 Urine Bilirubin NEGATIVE (NEGATIVE) 09/29/19 04:15 Urine Urobilinogen NEGATIVE mg/dL (<2.0) 09/29/19 04:15 Ur Leukocyte Esterase NEGATIVE (NEGATIVE) 09/29/19 04:15 Urine WBC (Auto) 1 /HPF 09/29/19 04:15 Urine RBC (Auto) 0 /HPF 09/29/19 04:15 Squamous Epi Cells Auto <1 /HPF 09/29/19 04:15 Urine Osmolality 162 mOsm/kg (300-900) L 09/29/19 04:15 Urine Sodium 60 mmol/L (30-90) 09/29/19 15:00 Urine Ascorbic Acid NEGATIVE (NEGATIVE) 09/29/19 04:15 09/29/19 09/29/19 04:11 07:55 Troponin I 0.040 0.038 Impressions: Chest X-Ray 09/29/19 10:31 IMPRESSION: NO ACUTE RADIOGRAPHIC FINDING IN THE CHEST. Plan Time Spent: Less than 30 Minutes Stroke Is this a Stroke Patient?: No Acute Heart Failure - Is this a Heart Failure Patient?: No
--- NOTE | 2019-09-30 20:18 | EKG REPORT ---
SEVERITY:- ABNORMAL ECG - SINUS RHYTHM NONSPECIFIC INTRAVENTRICULAR CONDUCTION DELAY : Confirmed by: Magdy Alicea MD 30-Sep-2019 20:17:00
== END 2019-09-30 13:34 | disposition home or self-care (01) ==
LOC: ER 23:07 → EH 09-29 10:52 → 4S 09-29 13:19
PROVIDERS: ADMIT Internal Medicine; ATTEND Internal Medicine
DX: E87.5 Hyperkalemia (principal); K52.9 Noninfective gastroenteritis and colitis, unspecified; R79.89 Other specified abnormal findings of blood chemistry; E11.65 Type 2 diabetes mellitus with hyperglycemia; E86.1 Hypovolemia; E87.1 Hypo-osmolality and hyponatremia; I10 Essential (primary) hypertension; E03.9 Hypothyroidism, unspecified; E78.5 Hyperlipidemia, unspecified; F32.9 Major depressive disorder, single episode, unspecified; E66.01 Morbid (severe) obesity due to excess calories; Z79.4 Long term (current) use of insulin; Z79.82 Long term (current) use of aspirin; Z79.899 Other long term (current) drug therapy; Z79.890 Hormone replacement therapy; Z82.49 Family history of ischemic heart disease and other diseases of the circulatory system
CPT/HCPCS: 93005 ×3; 99285; 96361; 96375; 96365; 36415 ×2; 82962 ×2; 83690; 83735; 83930; 84443; 83935; 84300; 85025; 80048; 80053; 81001; 84484; 82533; 71045; 93010 ×2; G0378 ×3; A9270 ×14; J2405; J7030 ×2; J0610; J1815

== ENCOUNTER 2019-10-09 18:47 | Inpatient (IN) | payer MEDICARE ==
--- NOTE | 2019-10-09 22:22 | ER Document Report ---
ED GI/ - General Chief Complaint: Vomiting Stated Complaint: VOMITING BLOOD/HEADACHE Time Seen by Provider: 10/09/19 22:06 Mode of Arrival: Ambulatory Information source: Patient Notes: 64-year-old female presented to ED for complaint of vomiting about 14 times today with small amounts of blood that started in the afternoon. She states she has been nauseated for a week. She states she was admitted to the hospital about a week ago for chest pain nausea and vomiting she stayed overnight because she had some chest pain and elevated troponin and some abnormalities to her chemistries. She states she was discharged home the next day. She states she was supposed to follow-up with her primary care doctor Lala but she did not because they only have total visits they did not see them in the office. She states she does have a appointment with Dr. Esquivel on at [facility]. TRAVEL OUTSIDE OF THE [place] IN LAST 30 DAYS: No - HPI Patient complains to provider of: Abdominal pain, Vomiting, Other - She states she has a small amount of blood in her emesis each time she goes up today she has coughed some today and has been retching all day. Onset: Last week Timing/Duration: Intermittent Quality of pain: Cramping Severity at maximum: Mild Severity in ED: Mild Pain Level: 2 Location: Epigastric Vaginal bleeding (Compared to normal period): None Associated symptoms: Blood in emesis, Nausea, Vomiting Exacerbated by: Food Relieved by: Denies Similar symptoms previously: Yes Recently seen / treated by doctor: Yes - Related Data Allergies/Adverse Reactions: erythromycin base Allergy (Intermediate, Verified 10/09/19 19:58) HIVES, FACIAL SWELLING sulfamethoxazole [From Bactrim] Allergy (Verified 10/09/19 19:58) trimethoprim [From Bactrim] Allergy (Verified 10/09/19 19:58) codeine Adverse Reaction (Intermediate, Verified 10/09/19 19:58) NAUSEA, VOMITING Past Medical History - General Information source: Patient - Social History Smoking Status: Never Smoker Chew tobacco use (# tins/day): No Frequency of alcohol use: None Drug Abuse: None Lives with: Alone Family History: DM, Hypertension Patient has suicidal ideation: No Patient has homicidal ideation: No - Past Medical History Cardiac Medical History: Reports: Hx Hypercholesterolemia, Hx Hypertension Pulmonary Medical History: Reports: None EENT Medical History: Reports: None Neurological Medical History: Reports: None Endocrine Medical History: Reports: Hx Diabetes Mellitus Type 2 - on insulin, Hx Hypothyroidism Renal/ Medical History: Reports: Hx End Stage Renal Disease - Stage 3 kidney disease Malignancy Medical History: Reports: None GI Medical History: Reports: Hx Gastritis Musculoskeletal Medical History: Reports Hx Arthritis Skin Medical History: Reports None Psychiatric Medical History: Reports: Hx Depression Traumatic Medical History: Reports: None Infectious Medical History: Reports: None Surgical Hx: Negative Past Surgical History: Reports: None - Immunizations Hx Diphtheria, Pertussis, Tetanus Vaccination: Yes - 2018 Hx Pneumococcal Vaccination: 01/11/19 Review of Systems - Review of Systems Constitutional: Recent illness. denies: Chills, Fever EENT: No symptoms reported Cardiovascular: No symptoms reported Respiratory: No symptoms reported Gastrointestinal: Abdominal pain, Nausea, Vomiting Genitourinary: No symptoms reported Female Genitourinary: No symptoms reported Musculoskeletal: No symptoms reported Skin: No symptoms reported Hematologic/Lymphatic: No symptoms reported Neurological/Psychological: No symptoms reported -: Yes All other systems reviewed and negative Physical Exam - Vital signs Vitals: Temp Pulse Resp BP Pulse Ox 98.5 F 84 16 172/66 H 98 10/09/19 19:03 10/09/19 19:03 10/09/19 19:03 10/09/19 19:03 10/09/19 19:03 Interpretation: Hypertensive - 172/66 she does have a history of high blood pressure - General General appearance: Appears well, Alert - HEENT Head: Normocephalic, Atraumatic Eyes: Normal Pupils: PERRL - Respiratory Respiratory status: No respiratory distress Chest status: Nontender Breath sounds: Normal Chest palpation: Normal - Cardiovascular Rhythm: Regular Heart sounds: Normal auscultation Murmur: No - Abdominal Inspection: Normal Distension: No distension. No: Distended Bowel sounds: Normal Tenderness: Nontender, Tender - Epigastric Organomegaly: No organomegaly - Back Back: Normal, Nontender - Extremities General upper extremity: Normal inspection, Nontender, Normal color, Normal ROM, Normal temperature General lower extremity: Normal inspection, Nontender, Normal color, Normal ROM, Normal temperature, Normal weight bearing. No: Noah's sign - Neurological Neuro grossly intact: Yes Cognition: Normal Orientation: AAOx4 [place] Ari Coma Scale Eye Opening: Spontaneous [place] Ari Coma Scale Verbal: Oriented Josh Coma Scale Motor: Obeys Commands Josh Coma Scale Total: 15 Speech: Normal Motor strength normal: LUE, RUE, LLE, RLE Sensory: Normal - Psychological Associated symptoms: Normal affect, Normal mood - Skin Skin Temperature: Warm Skin Moisture: Dry Skin Color: Normal Course - Re-evaluation Re-evalutation: 10/09/19 23:29 This patient sodium was 119.1 and chloride is 84. I have discussed this with Dr. Aguero who is stated this patient needs to be admitted. I have discussed this with Dr. Martin who has accepted her for admission to telemetry. I have also added order for urine sodium and urine osmolality. She is getting 2 L of fluid at this time. Patient has been informed she will be admitted to telemetry. - Vital Signs Vital signs: Temp Pulse Resp BP Pulse Ox 97.5 F 67 16 140/78 H 100 10/10/19 08:14 10/10/19 08:14 10/10/19 08:14 10/10/19 08:14 10/10/19 08:14 - Laboratory Result Diagrams: 10/10/19 06:17 10/10/19 06:17 Laboratory results interpreted by me: 10/09/19 10/09/19 10/09/19 20:55 20:55 20:55 Hgb 11.4 L Hct 33.1 L Sodium 119.1 L* Chloride 84 L Est GFR (MDRD) Non-Af 55 L Glucose 278 H Urine Glucose (UA) >=500 H Discharge - Discharge Clinical Impression: Hyponatremia Nausea & vomiting Qualifiers: Vomiting type: unspecified Vomiting Intractability: non-intractable Qualified Code(s): R11.2 - Nausea with vomiting, unspecified Disposition: ADMITTED INPATIENT Admitting Provider: Mario (Hospitalist) Unit Admitted: Telemetry
[2019-10-09] MEDS ORDERED: ONDANSETRON HCL INJ/PF 4 MG/2 ML SDV IV ONE (22:23)
[2019-10-09] MEDS ORDERED: MAG HYDROX/AL HYDROX/SIMETH SUSP 30 ML UDCUP PO ONE (22:24)
[2019-10-09] MEDS ORDERED: LIDOCAINE 2% VISCOUS SOLN 15 ML UDCUP PO ONE (22:24)
[2019-10-09] MEDS ORDERED: METOCLOPRAMIDE HCL ORAL SOLN 10 MG/10 ML UDCUP PO ONE (22:24)
[2019-10-09] MEDS: NORMAL SALINE 1000 ML 1,000 ML IV PRN ×2 (22:41→23:33)
[2019-10-09 22:43] LABS: ABSOLUTE EOSINOPHILS # (AUTO) 0.1 10^3/uL (0.0-0.6); ABSOLUTE LYMPHOCYTES (AUTO) 0.8 10^3/uL (0.5-4.7); ABSOLUTE MONOCYTES (AUTO) 0.4 10^3/uL (0.1-1.4); ABSOLUTE NEUT (AUTO) 4.7 10^3/uL (1.7-8.2); BASOPHILS % (AUTO) 0.5 % (0-2); EOSINOPHILS % (AUTO) 2.2 % (0-6); HEMATOCRIT 33.1 % (36.0-47.0); HEMOGLOBIN 11.4 g/dL (12.0-15.5); LYMPHOCYTES % (AUTO) 13.7 % (13-45); MEAN CORPUSCULAR HEMOGLOBIN 30.4 pg (27.0-33.4); MEAN CORPUSCULAR HGB CONC 34.3 g/dL (32.0-36.0); MEAN CORPUSCULAR VOLUME 89 fl (80-97); MONOCYTES % (AUTO) 6.1 % (3-13); PLATELET COUNT 278 10^3/uL (150-450); RED BLOOD COUNT 3.73 10^6/uL (3.72-5.28); RED CELL DISTRIBUTION WIDTH 13.3 % (11.5-14.0); SEGMENTED NEUTROPHILS % (AUTO) 77.5 % (42-78); TOTAL CELLS COUNTED % (AUTO) 100 %; WHITE BLOOD COUNT 6.1 10^3/uL (4.0-10.5)
[2019-10-09 22:47] LABS: ALBUMIN 4.3 g/dL (3.5-5.0); ALKALINE PHOSPHATASE 104 U/L (38-126); ASPARTATE AMINO TRANSFERASE 27 U/L (14-36); BILIRUBIN,TOTAL 0.5 mg/dL (0.2-1.3); BLOOD UREA NITROGEN 20 mg/dL (7-20); CALCIUM 9.3 mg/dL (8.4-10.2); CARBON DIOXIDE 27 mmol/L (22-30); CHLORIDE 84 mmol/L (98-107); GLUCOSE 278 mg/dL (75-110); POTASSIUM 3.8 mmol/L (3.6-5.0)
[2019-10-09 22:49] LABS: ANION GAP 8 (5-19)
[2019-10-09 22:50] LABS: APPEARANCE,URINE CLEAR; BILIRUBIN,URINE NEGATIVE (NEGATIVE); COLOR,URINE STRAW; GLUCOSE, URINE >=500 mg/dL (NEGATIVE); KETONES,URINE NEGATIVE (NEGATIVE); LEUKOCYTE ESTERASE,URINE NEGATIVE (NEGATIVE); NITRITE,URINE NEGATIVE (NEGATIVE); PROTEIN,URINE NEGATIVE (NEGATIVE); URINE SPECIFIC GRAVITY 1.011; UROBILINOGEN,URINE NEGATIVE mg/dL (<2.0)
[2019-10-10] MEDS ORDERED: MAGNESIUM HYDROXIDE SUSP 30 ML UDCUP PO PRN (00:03)
[2019-10-10] MEDS ORDERED: RINGERS SOLUTION,LACTATED 1,000 ML IV PRN (00:03)
[2019-10-10] MEDS ORDERED: MAG HYDROX/AL HYDROX/SIMETH SUSP 30 ML UDCUP PO PRN (00:03)
[2019-10-10] MEDS ORDERED: MORPHINE SULFATE 10 MG/ML INJ IV PRN ×4 (00:09→00:20)
[2019-10-10] MEDS ORDERED: ACETAMINOPHEN 650 MG SUPP.RECT PR PRN (00:09)
[2019-10-10] MEDS ORDERED: GUAIFENESIN SYRP 200 MG/10 ML UDC PO PRN (00:09)
[2019-10-10] MEDS ORDERED: LORAZEPAM INJ 2 MG/1 ML VIAL IV PRN (00:09)
[2019-10-10] MEDS ORDERED: HYDRALAZINE HCL INJ/PF 20 MG/1 ML SDV IV PRN (00:09)
[2019-10-10] MEDS ORDERED: METOPROLOL TARTRATE PF/INJ 5 MG/5 ML SDV IV PRN (00:09)
[2019-10-10] MEDS ORDERED: GLUCAGON,HUMAN RECOMB 1 MG INJ IM PRN (00:10)
[2019-10-10] MEDS ORDERED: DEXTROSE 50%-WATER 25 GM/50 ML DISP.SYRIN IV PRN ×2 (00:10)
[2019-10-10] MEDS ORDERED: DEXTROSE 40% GEL 15 GM TUBE PO PRN ×2 (00:10)
[2019-10-10] MEDS ORDERED: INSULIN REG, HUMAN 100 UNIT/ML 3 ML VIAL (PYX) SUBCUT ONE (00:33)
[2019-10-10] MEDS: INSULIN REG, HUMAN 100 UNIT/ML 3 ML VIAL (PYX) SUBCUT SCH ×5 (01:00→21:48)
[2019-10-10] MEDS: ONDANSETRON HCL INJ/PF 4 MG/2 ML SDV IV PRN ×4 (03:42→18:05)
[2019-10-10] MEDS: ACETAMINOPHEN 325 MG TABLET PO PRN (05:24)
[2019-10-10] MEDS: HEPARIN SOD (PORCINE) 5,000 UNIT/ML 1 ML VIAL SUBCUT SCH ×3 (05:24→21:47)
--- NOTE | 2019-10-10 05:46 | PDOC H&P ---
History of Present Illness Admission Date/PCP: 10/09/2019 23:37 TRAE AGOSTO MD Patient complains of: Vomiting History of Present Illness: KRISTEN GATES is a 64 year old female who presented to the emergency room with acute vomiting. She admits 14 separate episodes of vomiting with small amounts of blood in each of her emeses since this morning. Her her vomiting has been accompanied by an occasional cough and intermittent episodes of retching with mild cramping epigastric pain. Her vomiting has been associated with nausea that has been present for 2 weeks. Her vomiting is made worse by attempts at eating. She denies other associated or accompanying signs and symptoms. She admits prior similar episodes. She was recently treated here at [facility] for the same complaints. She has not identified any additional aggravating or ameliorating factors for her vomiting. In the emergency room she was found to have hyponatremia with a sodium of 119, her glucose was 258, her hemoglobin and hematocrit were unchanged from her previous visit. She was started on IV fluids and subsequently admitted to the hospital for further evaluation and treatment. Past Medical History Cardiac Medical History: Reports: Coronary Artery Disease - HIGH CHOL, Hyperlipidema, Hypertension Denies: Myocardial Infarction Pulmonary Medical History: Denies: Asthma, Bronchitis, Chronic Obstructive Pulmonary Disease (COPD), Pneumonia EENT Medical History: Denies: Cataracts, Ears - Hearing aids Neurological Medical History: Denies: Hemorrhagic CVA, Ischemic CVA, Seizures Endocrine Medical History: Reports: Diabetes Mellitus Type 2 - on insulin, Hypothyroidism Renal/ Medical History: Denies: Chronic Kidney Disease, Nephrolithiasis Malignancy Medical History: Reports: None GI Medical History: Denies: Cirrhosis, Hepatitis Musculoskeltal Medical History: Reports: Arthritis Denies: Gout Skin Medical History: Denies: Eczema, Psoriasis Psychiatric Medical History: Reports: Depression Denies: Alcohol Dependency, Substance Abuse, Tobacco Dependency Traumatic Medical History: Reports: None Hematology: Reports: Anemia - TAKES IRON Denies: Bleeding Tendencies Infectious Medical History: Reports: None Past Surgical History Past Surgical History: Reports: None Social History Information Source: Patient Lives with: Family Smoking Status: Never Smoker Electronic Cigarette use?: No Frequency of Alcohol Use: None Hx Recreational Drug Use: No Drugs: None Hx Prescription Drug Abuse: No - Advance Directive Resuscitation Status: Full Code Surrogate healthcare decision maker:: Flaquita Gonzalez Family History Family History: DM, Hypertension Parental Family History Reviewed: Yes Children Family History Reviewed: No Sibling(s) Family History Reviewed.: Yes Medication/Allergy Home Medications: Aspirin [Aspirin 81 mg Chewable Tablet] 81 mg PO DAILY 01/03/16 Atorvastatin Calcium [Lipitor 10 mg Tablet] 10 mg PO QHS 01/03/16 Insulin Regular, Human [Novolin R (Reg) Insulin 100 unit/mL] 0 units SQ .SLIDINGSCALE 01/03/16 NPH, Human Insulin Isophane [Novolin N (NPH) Insulin 100 unit/mL] 13 units SQ BID 01/03/16 Acetaminophen [Tylenol 325 mg Tablet] 650 mg PO Q4HP PRN 09/29/19 Cetirizine HCl [Zyrtec 10 mg Tablet] 10 mg PO DAILY 09/29/19 Gabapentin [Neurontin 300 mg Capsule] 300 mg PO Q12 09/29/19 Levothyroxine Sodium 50 mcg PO Q6AM 09/29/19 Sertraline HCl [Zoloft 50 mg Tablet] 50 mg PO DAILY 09/29/19 Chlorthalidone [Hygroton 25 mg Tablet] 25 mg PO DAILY #30 tablet 09/30/19 Allergies/Adverse Reactions: erythromycin base Allergy (Intermediate, Verified 10/09/19 19:58) HIVES, FACIAL SWELLING sulfamethoxazole [From Bactrim] Allergy (Verified 10/09/19 19:58) trimethoprim [From Bactrim] Allergy (Verified 10/09/19 19:58) codeine Adverse Reaction (Intermediate, Verified 10/09/19 19:58) NAUSEA, VOMITING Review of Systems Constitutional: PRESENT: headache(s). ABSENT: chills, fever(s) Eyes: ABSENT: visual disturbances, other - Eye pain Ears: ABSENT: hearing changes, other - Ear pain Nose, Mouth, and Throat: PRESENT: headache(s). ABSENT: sore throat Cardiovascular: ABSENT: chest pain, palpitations Respiratory: PRESENT: as per HPI, cough. ABSENT: dyspnea, hemoptysis, sputum Gastrointestinal: PRESENT: as per HPI, abdominal pain, hematemesis, nausea, vomiting. ABSENT: constipation, diarrhea Genitourinary: ABSENT: dysuria, hematuria Musculoskeletal: ABSENT: back pain, joint swelling Integumentary: ABSENT: pruritus, rash Neurological: PRESENT: abnormal movements - Occasional shakiness. ABSENT: confusion, convulsions, focal weakness, memory loss, syncope Psychiatric: ABSENT: anxiety, depression Endocrine: ABSENT: cold intolerance, heat intolerance Hematologic/Lymphatic: ABSENT: easy bleeding, easy bruising Allergic/Immunologic: ABSENT: seasonal rhinorrhea Physical Exam Vital Signs: Temp Pulse Resp BP Pulse Ox 98.5 F 84 16 172/66 H 98 10/09/19 19:03 10/09/19 19:03 10/09/19 19:03 10/09/19 19:03 10/09/19 19:03 Intake & Output 10/07/19 10/08/19 10/09/19 23:59 23:59 23:59 Intake Total 1000 Balance 1000 Weight 70.307 kg General appearance: PRESENT: no acute distress, cooperative Head exam: PRESENT: atraumatic, normocephalic Eye exam: PRESENT: conjunctiva pink. ABSENT: conjunctival injection, scleral icterus Ear exam: PRESENT: normal external ear exam. ABSENT: bleeding, drainage Mouth exam: PRESENT: dry mucosa, neck supple Neck exam: ABSENT: thyromegaly, tracheal deviation Respiratory exam: PRESENT: clear to auscultation carlie, symmetrical, unlabored Cardiovascular exam: PRESENT: RRR. ABSENT: clicks, gallop, rubs Pulses: PRESENT: normal radial pulses, normal dorsalis pedis pul Vascular exam: PRESENT: normal capillary refill. ABSENT: pallor GI/Abdominal exam: PRESENT: normal bowel sounds, soft Rectal exam: PRESENT: deferred Extremities exam: ABSENT: joint swelling, pedal edema Musculoskeletal exam: ABSENT: deformity, dislocation Neurological exam: PRESENT: alert, oriented to person, oriented to place, oriented to time, oriented to situation, CN II-XII grossly intact. ABSENT: motor sensory deficit Psychiatric exam: PRESENT: appropriate affect, normal mood Skin exam: PRESENT: dry, intact, warm. ABSENT: jaundice, rash, urticaria Results Laboratory Results: 10/09/19 20:55 10/09/19 20:55 10/09/19 10/09/19 10/09/19 20:55 20:55 20:55 WBC 6.1 RBC 3.73 Hgb 11.4 L Hct 33.1 L MCV 89 MCH 30.4 MCHC 34.3 RDW 13.3 Plt Count 278 Seg Neutrophils % 77.5 Sodium 119.1 L* Potassium 3.8 Chloride 84 L Carbon Dioxide 27 Anion Gap 8 BUN 20 Creatinine 1.01 Est GFR ( Amer) > 60 Glucose 278 H Calcium 9.3 Total Bilirubin 0.5 AST 27 Alkaline Phosphatase 104 Total Protein 7.0 Albumin 4.3 Lipase 62.7 Urine Color STRAW Urine Appearance CLEAR Urine pH 5.0 Ur Specific [place] 1.011 Urine Protein NEGATIVE Urine Glucose (UA) >=500 H Urine Ketones NEGATIVE Urine Blood NEGATIVE Urine Nitrite NEGATIVE Ur Leukocyte Esterase NEGATIVE Urine WBC (Auto) 2 Urine RBC (Auto) 0 Assessment and Plan - Diagnosis (1) Hyponatremia Is this a current diagnosis for this admission?: Yes (2) Nausea & vomiting Qualifiers: Vomiting type: unspecified Vomiting Intractability: non-intractable Qualified Code(s): R11.2 - Nausea with vomiting, unspecified Is this a current diagnosis for this admission?: Yes (3) Hematemesis Qualifiers: Nausea presence: with nausea Qualified Code(s): K92.0 - Hematemesis Is this a current diagnosis for this admission?: Yes (4) Chronic anemia Is this a current diagnosis for this admission?: Yes (5) Hyperlipidemia Qualifiers: Hyperlipidemia type: unspecified Qualified Code(s): E78.5 - Hyperlipidemia, unspecified Is this a current diagnosis for this admission?: Yes (6) Hypothyroid Qualifiers: Hypothyroidism type: unspecified Qualified Code(s): E03.9 - Hypothyroidism, unspecified Is this a current diagnosis for this admission?: Yes (7) Hypertension Is this a current diagnosis for this admission?: Yes (8) Diabetes mellitus type 2 in nonobese Is this a current diagnosis for this admission?: Yes - Plan Summary Summary: Patient will be admitted to the medical floor where she will receive routine supportive and symptomatic cares. She will be treated with IV fluids utilizing lactated Ringer's at 167 mL/h. Serial hemoglobin and hematocrit determinations will be obtained. Serial metabolic profiles will be obtained. Emesis will be checked for presence of blood. She has a gastroenterology appointment scheduled for of this week with a [place] gastroenterology physician. She will receive morphine sulfate 2 to 4 mg IV every 2 hours as needed for pain. She received Ativan 1 mg IV every 4 hours as needed for anxiety or restlessness. Before meals and at bedtime Accu-Cheks will be obtained with sliding scale insulin to cover hyperglycemia and a hypoglycemic protocol in place. She will be on a clear liquid diet with cardiac restrictions. - Time Time Spent with patient: 15-24 minutes Medications reviewed and adjusted accordingly: Yes Anticipated discharge: Home - Inpatient Certification Based on my medical assessment, after consideration of the patient's comorbidities, presenting symptoms, or acuity I expect that the services needed warrant INPATIENT care.: Yes I certify that my determination is in accordance with my understanding of Medicare's requirements for reasonable and necessary INPATIENT services [42 CFR 412.3e].: Yes Medical Necessity: Need Close Monitoring Due to Risk of Patient Decompensation, Need For IV Fluids, Risk of Complication if Not Cared For in Hospital, Risk of Diagnosis Which Will Require Inpatient Eval/Care/Monitoring
[2019-10-10 06:41] LABS: HEMATOCRIT 30.8 % (36.0-47.0); HEMOGLOBIN 10.7 g/dL (12.0-15.5); MEAN CORPUSCULAR HEMOGLOBIN 30.8 pg (27.0-33.4); MEAN CORPUSCULAR HGB CONC 34.9 g/dL (32.0-36.0); MEAN CORPUSCULAR VOLUME 88 fl (80-97); PLATELET COUNT 255 10^3/uL (150-450); RED BLOOD COUNT 3.49 10^6/uL (3.72-5.28); RED CELL DISTRIBUTION WIDTH 13.3 % (11.5-14.0); WHITE BLOOD COUNT 5.4 10^3/uL (4.0-10.5)
[2019-10-10 07:05] LABS: ANION GAP 8 (5-19); BLOOD UREA NITROGEN 14 mg/dL (7-20); CALCIUM 8.8 mg/dL (8.4-10.2); CARBON DIOXIDE 25 mmol/L (22-30); CHLORIDE 96 mmol/L (98-107); GLUCOSE 217 mg/dL (75-110); POTASSIUM 3.8 mmol/L (3.6-5.0)
--- NOTE | 2019-10-10 08:05 | EKG REPORT ---
SEVERITY:- BORDERLINE ECG - SINUS RHYTHM PROBABLE LEFT ATRIAL ABNORMALITY : Confirmed by: Carolann Smart 10-Oct-2019 08:05:17
[2019-10-10] MEDS: FAMOTIDINE INJ/PF 20 MG/2 ML SDV IV SCH ×2 (09:52→21:47)
[2019-10-10] MEDS: DOCUSATE SODIUM 100 MG/10 ML UDC PO SCH ×2 (09:52→18:03)
[2019-10-10 12:58] LABS: ANION GAP 7 (5-19); BLOOD UREA NITROGEN 12 mg/dL (7-20); CALCIUM 9.2 mg/dL (8.4-10.2); CARBON DIOXIDE 25 mmol/L (22-30); CHLORIDE 98 mmol/L (98-107); GLUCOSE 150 mg/dL (75-110); POTASSIUM 4.3 mmol/L (3.6-5.0)
--- NOTE | 2019-10-10 18:31 | PDOC PROGRESS REPORT ---
Subjective Progress Note for:: 10/10/19 Subjective:: No adverse events overnight. No new complaints. Her sodium has come up 10 points today. She is not had any mental status changes. Reason For Visit: NAUSEA AND VOMITING,HYPONATREMIA Physical Exam Vital Signs: Temp Pulse Resp BP Pulse Ox 98.8 F 74 16 165/75 H 100 10/10/19 16:23 10/10/19 16:23 10/10/19 16:23 10/10/19 16:23 10/10/19 11:02 Intake & Output 10/09/19 10/10/19 10/11/19 06:59 06:59 06:59 Intake Total 1999 2179 Balance 1999 2179 Weight 70.3 kg General appearance: PRESENT: no acute distress, cooperative, disheveled Respiratory exam: PRESENT: clear to auscultation carlie, symmetrical, unlabored. ABSENT: accessory muscle use, chest wall tenderness, crackles, prolonged expiratory phas, rhonchi, tachypnea, wheezes Cardiovascular exam: PRESENT: RRR, +S1, +S2 Pulses: PRESENT: normal carotid pulses Vascular exam: PRESENT: normal capillary refill GI/Abdominal exam: PRESENT: normal bowel sounds, soft. ABSENT: distended, guarding, rebound, tenderness Extremities exam: ABSENT: clubbing, pedal edema Musculoskeletal exam: PRESENT: normal inspection. ABSENT: deformity Neurological exam: PRESENT: awake, oriented to person, oriented to place, oriented to situation Psychiatric exam: PRESENT: flat affect Skin exam: PRESENT: dry, warm Results Laboratory Results: 10/10/19 06:17 10/10/19 12:07 10/09/19 10/09/19 10/09/19 20:55 20:55 20:55 WBC 6.1 RBC 3.73 Hgb 11.4 L Hct 33.1 L MCV 89 MCH 30.4 MCHC 34.3 RDW 13.3 Plt Count 278 Seg Neutrophils % 77.5 Sodium 119.1 L* Potassium 3.8 Chloride 84 L Carbon Dioxide 27 Anion Gap 8 BUN 20 Creatinine 1.01 Est GFR ( Amer) > 60 Glucose 278 H Calcium 9.3 Magnesium Total Bilirubin 0.5 AST 27 Alkaline Phosphatase 104 Total Protein 7.0 Albumin 4.3 Lipase 62.7 Urine Color STRAW Urine Appearance CLEAR Urine pH 5.0 Ur Specific [place] 1.011 Urine Protein NEGATIVE Urine Glucose (UA) >=500 H Urine Ketones NEGATIVE Urine Blood NEGATIVE Urine Nitrite NEGATIVE Ur Leukocyte Esterase NEGATIVE Urine WBC (Auto) 2 Urine RBC (Auto) 0 Urine Osmolality 10/09/19 10/10/19 10/10/19 20:55 06:17 06:17 WBC 5.4 RBC 3.49 L Hgb 10.7 L Hct 30.8 L MCV 88 MCH 30.8 MCHC 34.9 RDW 13.3 Plt Count 255 Seg Neutrophils % Sodium 128.7 L Potassium 3.8 Chloride 96 L Carbon Dioxide 25 Anion Gap 8 BUN 14 Creatinine 0.89 Est GFR ( Amer) > 60 Glucose 217 H Calcium 8.8 Magnesium 1.7 Total Bilirubin AST Alkaline Phosphatase Total Protein Albumin Lipase Urine Color Urine Appearance Urine pH Ur Specific [place] Urine Protein Urine Glucose (UA) Urine Ketones Urine Blood Urine Nitrite Ur Leukocyte Esterase Urine WBC (Auto) Urine RBC (Auto) Urine Osmolality 380 10/10/19 12:07 WBC RBC Hgb Hct MCV MCH MCHC RDW Plt Count Seg Neutrophils % Sodium 129.6 L Potassium 4.3 Chloride 98 Carbon Dioxide 25 Anion Gap 7 BUN 12 Creatinine 0.92 Est GFR ( Amer) > 60 Glucose 150 H Calcium 9.2 Magnesium Total Bilirubin AST Alkaline Phosphatase Total Protein Albumin Lipase Urine Color Urine Appearance Urine pH Ur Specific [place] Urine Protein Urine Glucose (UA) Urine Ketones Urine Blood Urine Nitrite Ur Leukocyte Esterase Urine WBC (Auto) Urine RBC (Auto) Urine Osmolality Assessment and Plan - Diagnosis (1) Hyponatremia Is this a current diagnosis for this admission?: Yes Plan: Her sodium came up a little quick. She was below 120 on admission. We do not know how long her sodium has been down that low. Therefore I will put her on some D5W and try to drive her sodium down a little bit. (2) Diabetes mellitus type 2 in nonobese Is this a current diagnosis for this admission?: Yes Plan: Continue sliding scale (3) Hematemesis Qualifiers: Nausea presence: with nausea Qualified Code(s): K92.0 - Hematemesis Is this a current diagnosis for this admission?: Yes Plan: She has a follow-up visit with a cleaning and washing equipment operator on . If she has no more signs of bleeding then we will defer evaluation to her outpatient cleaning and washing equipment operator. If she shows further signs of bleeding, we will get her evaluated here. I expect her counts to drop because we are giving her fluid, but if she drops precipitously then we will likely be forced to get her evaluated here. (4) Hyperlipidemia Qualifiers: Hyperlipidemia type: unspecified Qualified Code(s): E78.5 - Hyperlipidemia, unspecified Is this a current diagnosis for this admission?: Yes Plan: Once her nausea has resolved completely, will start her back on her statin (5) Nausea & vomiting Qualifiers: Vomiting type: unspecified Vomiting Intractability: non-intractable Qualified Code(s): R11.2 - Nausea with vomiting, unspecified Is this a current diagnosis for this admission?: Yes Plan: Improving with antiemetics - Plan Summary Summary: Patient will be admitted to the medical floor where she will receive routine supportive and symptomatic cares. She will be treated with IV fluids utilizing lactated Ringer's at 167 mL/h. Serial hemoglobin and hematocrit determinations will be obtained. Serial metabolic profiles will be obtained. Emesis will be checked for presence of blood. She has a gastroenterology appointment scheduled for of this week with a [place] gastroenterology physician. She will receive morphine sulfate 2 to 4 mg IV every 2 hours as needed for pain. She received Ativan 1 mg IV every 4 hours as needed for anxiety or restlessness. Before meals and at bedtime Accu-Cheks will be obtained with sliding scale insulin to cover hyperglycemia and a hypoglycemic protocol in place. She will be on a clear liquid diet with cardiac restrictions. - Time Time Spent with patient: 25-34 minutes
[2019-10-10] MEDS: DOCUSATE SODIUM 100 MG CAPSULE PO SCH (18:38)
[2019-10-11] MEDS: ACETAMINOPHEN 325 MG TABLET PO PRN ×2 (03:01→13:26)
[2019-10-11] MEDS: LEVOTHYROXINE SODIUM 0.05 MG TABLET PO SCH (05:45)
[2019-10-11] MEDS: HEPARIN SOD (PORCINE) 5,000 UNIT/ML 1 ML VIAL SUBCUT SCH ×3 (05:45→22:02)
[2019-10-11 06:22] LABS: HEMATOCRIT 32.4 % (36.0-47.0); HEMOGLOBIN 11.2 g/dL (12.0-15.5); MEAN CORPUSCULAR HEMOGLOBIN 30.7 pg (27.0-33.4); MEAN CORPUSCULAR HGB CONC 34.7 g/dL (32.0-36.0); MEAN CORPUSCULAR VOLUME 89 fl (80-97); PLATELET COUNT 244 10^3/uL (150-450); RED BLOOD COUNT 3.66 10^6/uL (3.72-5.28); RED CELL DISTRIBUTION WIDTH 13.5 % (11.5-14.0); WHITE BLOOD COUNT 4.6 10^3/uL (4.0-10.5)
[2019-10-11 06:42] LABS: ANION GAP 8 (5-19); BLOOD UREA NITROGEN 10 mg/dL (7-20); CALCIUM 9.4 mg/dL (8.4-10.2); CARBON DIOXIDE 25 mmol/L (22-30); CHLORIDE 97 mmol/L (98-107); GLUCOSE 203 mg/dL (75-110); POTASSIUM 4.4 mmol/L (3.6-5.0)
[2019-10-11] MEDS: INSULIN REG, HUMAN 100 UNIT/ML 3 ML VIAL (PYX) SUBCUT SCH ×4 (07:49→22:02)
[2019-10-11] MEDS: DOCUSATE SODIUM 100 MG CAPSULE PO SCH ×2 (09:17→18:12)
[2019-10-11] MEDS: FAMOTIDINE INJ/PF 20 MG/2 ML SDV IV SCH (09:17)
[2019-10-11] MEDS: CETIRIZINE 10 MG TABLET PO SCH (09:17)
[2019-10-11] MEDS ORDERED: CHLORTHALIDONE 25 MG TABLET PO SCH (10:00)
[2019-10-11] MEDS ORDERED: SERTRALINE HCL 50 MG TABLET PO SCH (10:00)
[2019-10-11] MEDS: DEXTROSE 5%-WATER 1000 ML 1,000 ML IV PRN (13:11)
[2019-10-11] MEDS: ONDANSETRON HCL INJ/PF 4 MG/2 ML SDV IV PRN (13:20)
[2019-10-11 16:02] LABS: ANION GAP 8 (5-19); BLOOD UREA NITROGEN 12 mg/dL (7-20); CALCIUM 9.1 mg/dL (8.4-10.2); CARBON DIOXIDE 26 mmol/L (22-30); CHLORIDE 92 mmol/L (98-107); GLUCOSE 328 mg/dL (75-110); POTASSIUM 4.5 mmol/L (3.6-5.0)
[2019-10-11] MEDS ORDERED: ATORVASTATIN CALCIUM 10 MG TABLET PO SCH (17:00)
[2019-10-11] MEDS: PANTOPRAZOLE SODIUM 40 MG TABLET.DR PO SCH (18:12)
[2019-10-11] MEDS: SUCRALFATE 1 GM TABLET PO SCH (18:12)
[2019-10-11] MEDS ORDERED: INSULIN NPH (ISOPHANE), HUMAN 100 UNIT/ML 3 ML ONE (18:19)
--- NOTE | 2019-10-11 18:34 | PDOC PROGRESS REPORT ---
Subjective Progress Note for:: 10/11/19 Subjective:: No adverse events overnight. No new complaints. Vital signs been stable. Eating and drinking without difficulty. She wants her diet advanced. She is not had any more evidence of any bleeding. She had a little bit of nausea this morning but then immediately said she wanted her diet advanced from liquids. Reason For Visit: NAUSEA AND VOMITING,HYPONATREMIA Physical Exam Vital Signs: Temp Pulse Resp BP Pulse Ox 98.6 F 65 17 156/64 H 99 10/11/19 15:30 10/11/19 15:30 10/11/19 15:30 10/11/19 15:30 10/11/19 15:30 Intake & Output 10/10/19 10/11/19 10/12/19 06:59 06:59 06:59 Intake Total 1999 3040 630 Balance 1999 3040 630 Weight 70.3 kg 68.3 kg 68.3 kg General appearance: PRESENT: no acute distress, cooperative, disheveled Respiratory exam: PRESENT: clear to auscultation carlie, symmetrical, unlabored. ABSENT: accessory muscle use, chest wall tenderness, crackles, prolonged ex piratory phas, rhonchi, tachypnea, wheezes Cardiovascular exam: PRESENT: RRR, +S1, +S2 Pulses: PRESENT: normal carotid pulses Vascular exam: PRESENT: normal capillary refill GI/Abdominal exam: PRESENT: normal bowel sounds, soft. ABSENT: distended, guarding, rebound, tenderness Extremities exam: ABSENT: clubbing, pedal edema Musculoskeletal exam: PRESENT: normal inspection. ABSENT: deformity Neurological exam: PRESENT: awake, oriented to person, oriented to place, oriented to situation Psychiatric exam: PRESENT: flat affect Skin exam: PRESENT: dry, warm Results Laboratory Results: 10/11/19 05:53 10/11/19 15:23 10/11/19 10/11/19 10/11/19 05:53 05:53 15:23 WBC 4.6 RBC 3.66 L Hgb 11.2 L Hct 32.4 L MCV 89 MCH 30.7 MCHC 34.7 RDW 13.5 Plt Count 244 Sodium 129.7 L 125.6 L Potassium 4.4 4.5 Chloride 97 L 92 L Carbon Dioxide 25 26 Anion Gap 8 8 BUN 10 12 Creatinine 0.93 0.98 Est GFR ( Amer) > 60 > 60 Glucose 203 H 328 H Calcium 9.4 9.1 Magnesium 1.7 Assessment and Plan - Diagnosis (1) Hyponatremia Is this a current diagnosis for this admission?: Yes Plan: We have successfully attenuated the rise in her sodium. She has been taken back off of fluids now and her diet advanced. If her sodium continues to trend up tomorrow she could potentially be discharged home. (2) Diabetes mellitus type 2 in nonobese Is this a current diagnosis for this admission?: Yes Plan: Continue sliding scale (3) Hematemesis Qualifiers: Nausea presence: with nausea Qualified Code(s): K92.0 - Hematemesis Is this a current diagnosis for this admission?: Yes Plan: This seems to have resolved. She has a follow-up with a support associate on . As long as she does not have any further evidence of hematemesis or blood loss, she can keep this appointment with a support associate for outpatient evaluation. (4) Hyperlipidemia Qualifiers: Hyperlipidemia type: unspecified Qualified Code(s): E78.5 - Hyperlipidemia, unspecified Is this a current diagnosis for this admission?: Yes Plan: Once her nausea has resolved completely, will start her back on her statin (5) Nausea & vomiting Qualifiers: Vomiting type: unspecified Vomiting Intractability: non-intractable Qualified Code(s): R11.2 - Nausea with vomiting, unspecified Is this a current diagnosis for this admission?: Yes Plan: Resolved - Plan Summary Summary: Patient will be admitted to the medical floor where she will receive routine supportive and symptomatic cares. She will be treated with IV fluids utilizing lactated Ringer's at 167 mL/h. Serial hemoglobin and hematocrit determinations will be obtained. Serial metabolic profiles will be obtained. Emesis will be checked for presence of blood. She has a gastroenterology appointment scheduled for of this week with a [place] gastroenterology physician. She will receive morphine sulfate 2 to 4 mg IV every 2 hours as needed for pain. She received Ativan 1 mg IV every 4 hours as needed for anxiety or restlessness. Before meals and at bedtime Accu-Cheks will be obtained with sliding scale insulin to cover hyperglycemia and a hypoglycemic protocol in place. She will be on a clear liquid diet with cardiac restrictions. - Time Time Spent with patient: 15-24 minutes
[2019-10-11] MEDS: INSULIN NPH (ISOPHANE), HUMAN 100 UNIT/ML 3 ML SUBCUT SCH (18:53)
[2019-10-12] MEDS: SUCRALFATE 1 GM TABLET PO SCH ×3 (00:02→11:37)
[2019-10-12] MEDS: DEXTROSE 5%-WATER 1000 ML 1,000 ML IV PRN (00:08)
[2019-10-12] MEDS: ONDANSETRON HCL INJ/PF 4 MG/2 ML SDV IV PRN ×2 (03:55→07:54)
[2019-10-12] MEDS: HEPARIN SOD (PORCINE) 5,000 UNIT/ML 1 ML VIAL SUBCUT SCH ×2 (05:45→14:09)
[2019-10-12] MEDS: PANTOPRAZOLE SODIUM 40 MG TABLET.DR PO SCH (05:45)
[2019-10-12] MEDS: LEVOTHYROXINE SODIUM 0.05 MG TABLET PO SCH (05:45)
[2019-10-12 06:20] LABS: HEMATOCRIT 32.5 % (36.0-47.0); HEMOGLOBIN 11.4 g/dL (12.0-15.5); MEAN CORPUSCULAR HGB CONC 35.1 g/dL (32.0-36.0); MEAN CORPUSCULAR VOLUME 88 fl (80-97); PLATELET COUNT 239 10^3/uL (150-450); RED BLOOD COUNT 3.67 10^6/uL (3.72-5.28); RED CELL DISTRIBUTION WIDTH 13.6 % (11.5-14.0); WHITE BLOOD COUNT 6.4 10^3/uL (4.0-10.5)
[2019-10-12 06:41] LABS: ANION GAP 8 (5-19); BLOOD UREA NITROGEN 14 mg/dL (7-20); CALCIUM 9.1 mg/dL (8.4-10.2); CARBON DIOXIDE 26 mmol/L (22-30); CHLORIDE 92 mmol/L (98-107); GLUCOSE 173 mg/dL (75-110); POTASSIUM 4.1 mmol/L (3.6-5.0)
[2019-10-12] MEDS: INSULIN REG, HUMAN 100 UNIT/ML 3 ML VIAL (PYX) SUBCUT SCH ×2 (07:48→11:37)
[2019-10-12] MEDS ORDERED: MAGNESIUM OXIDE 400 MG TABLET PO ONE (08:13)
[2019-10-12] MEDS: DOCUSATE SODIUM 100 MG CAPSULE PO SCH (09:14)
[2019-10-12] MEDS: CETIRIZINE 10 MG TABLET PO SCH (09:14)
[2019-10-12] MEDS: INSULIN NPH (ISOPHANE), HUMAN 100 UNIT/ML 3 ML SUBCUT SCH (09:14)
--- NOTE | 2019-10-12 14:04 | PDOC DISCHARGE SUMMARY ---
Impression - Admit/DC Date/PCP Admission Date/Primary Care Provider: 10/09/19 23:34 TRAE AGOSTO MD Discharge Date: 10/12/19 - Discharge Diagnosis (1) Hyponatremia Is this a current diagnosis for this admission?: Yes (2) Hematemesis Is this a current diagnosis for this admission?: Yes (3) Anemia Is this a current diagnosis for this admission?: Yes (4) Hyperlipidemia Is this a current diagnosis for this admission?: Yes (5) Nausea & vomiting Is this a current diagnosis for this admission?: Yes (6) Hypothyroid Is this a current diagnosis for this admission?: Yes (7) Depression Is this a current diagnosis for this admission?: Yes - Assessment Summary: Patient will be admitted to the medical floor where she will receive routine supportive and symptomatic cares. She will be treated with IV fluids utilizing lactated Ringer's at 167 mL/h. Serial hemoglobin and hematocrit determinations will be obtained. Serial metabolic profiles will be obtained. Emesis will be checked for presence of blood. She has a gastroenterology appointment scheduled for of this week with a [facility] physician. She will receive morphine sulfate 2 to 4 mg IV every 2 hours as needed for pain. She received Ativan 1 mg IV every 4 hours as needed for anxiety or restlessness. Before meals and at bedtime Accu-Cheks will be obtained with sliding scale insulin to cover hyperglycemia and a hypoglycemic protocol in place. She will be on a clear liquid diet with cardiac restrictions. - Additional Information Resuscitation Status: Full Code Discharge Diet: Diabetic Discharge Activity: Activity As Tolerated Referrals: TRAE AGOSTO MD [Primary Care Provider] - Follow up as needed (No answer at provider's office. A message was left for office to call patient with a follow up date/time.) Prescriptions: Sucralfate [Carafate 1 gm Tablet] 1 gm PO ACHS #56 tablet Magnesium Oxide [Mag-Ox 400 mg Tablet] 400 mg PO DAILY #15 tablet Pantoprazole Sodium [Protonix [address] Tablet] 40 mg PO BID@0600,1700 #28 tablet. Ondansetron [Zofran Odt 4 mg Tablet] 4 mg PO Q4HP PRN #30 tab.rapdis PRN Reason: Home Medications: Aspirin [Aspirin 81 mg Chewable Tablet] 81 mg PO DAILY 01/03/16 Atorvastatin Calcium [Lipitor 10 mg Tablet] 10 mg PO WSUPPER 01/03/16 Insulin Regular, Human [Novolin R (Reg) Insulin 100 unit/mL] See Protocol SQ MEALS 01/03/16 NPH, Human Insulin Isophane [Novolin N (NPH) Insulin 100 unit/mL] 13 units SQ BID 01/03/16 Acetaminophen [Tylenol 325 mg Tablet] 650 mg PO Q4HP PRN 09/29/19 Cetirizine HCl [Zyrtec 10 mg Tablet] 10 mg PO DAILY 09/29/19 Levothyroxine Sodium 50 mcg PO Q6AM 09/29/19 Sertraline HCl [Zoloft 50 mg Tablet] 50 mg PO DAILY 09/29/19 Docusate Sodium [Colace 100 mg Capsule] 100 mg PO BID capsule 10/12/19 Guaifenesin [Robitussin Syrup 200 mg/10 ml Ud Cup] 200 mg PO Q4HP PRN udc 10/12/19 Magnesium Oxide [Mag-Ox 400 mg Tablet] 400 mg PO DAILY #15 tablet 10/12/19 NPH, Human Insulin Isophane [Humulin N (NPH) Insulin 100 unit/mL] 13 unit SUBCUT BID unit 10/12/19 Ondansetron [Zofran Odt 4 mg Tablet] 4 mg PO Q4HP PRN #30 tab.rapdis 10/12/19 Pantoprazole Sodium [Protonix [address] Tablet] 40 mg PO BID@0600,1700 #28 tablet.dr 10/12/19 Sucralfate [Carafate 1 gm Tablet] 1 gm PO ACHS #56 tablet 10/12/19 History of Present Illiness History of Present Illness: KRISTEN GATES is a 64 year old female who presented to the emergency room with acute vomiting. She admits 14 separate episodes of vomiting with small amounts of blood in each of her emeses since this morning. Her her vomiting has been accompanied by an occasional cough and intermittent episodes of retching with mild cramping epigastric pain. Her vomiting has been associated with nausea that has been present for 2 weeks. Her vomiting is made worse by attempts at eating. She denies other associated or accompanying signs and symptoms. She admits prior similar episodes. She was recently treated here at [facility] for the same complaints. She has not identified any additional aggravating or ameliorating factors for her vomiting. In the emergency room she was found to have hyponatremia with a sodium of 119, her glucose was 258, her hemoglobin and hematocrit were unchanged from her previous visit. She was started on IV fluids and subsequently admitted to the hospital for further evaluation and treatment. Hospital Course Hospital Course: It took several days for the nausea and vomiting to subside. The patient felt like the Protonix and Carafate were quite helpful. She did not experience any significant drop in hemoglobin. He used insulin, sliding scale and Accu-Cheks to monitor her glucose and she continued with her other medications for her hyperlipidemia, hypothyroidism and depression. She was tolerating slow advancement of her diet. She has a follow-up with gastroenterology. She is in agreement to return home. Physical Exam Vital Signs: Temp Pulse Resp BP Pulse Ox 98.3 F 71 16 150/73 H 99 10/12/19 11:29 10/12/19 11:29 10/12/19 11:29 10/12/19 11:29 10/12/19 11:29 Intake & Output 10/11/19 10/12/19 10/13/19 06:59 06:59 06:59 Intake Total 3040 3020 1000 Balance 3040 3020 1000 Weight 68.3 kg 69.6 kg General appearance: PRESENT: no acute distress, cooperative, well-developed Respiratory exam: PRESENT: clear to auscultation carlie, symmetrical, unlabored. ABSENT: rales, rhonchi, tachypnea, wheezes Cardiovascular exam: PRESENT: RRR, +S1, +S2 GI/Abdominal exam: PRESENT: normal bowel sounds, soft. ABSENT: distended, tenderness Results Laboratory Results: WBC 6.4 10^3/uL (4.0-10.5) 10/12/19 05:23 RBC 3.67 10^6/uL (3.72-5.28) L 10/12/19 05:23 Hgb 11.4 g/dL (12.0-15.5) L 10/12/19 05:23 Hct 32.5 % (36.0-47.0) L 10/12/19 05:23 MCV 88 fl (80-97) 10/12/19 05:23 MCH 31.0 pg (27.0-33.4) 10/12/19 05:23 MCHC 35.1 g/dL (32.0-36.0) 10/12/19 05:23 RDW 13.6 % (11.5-14.0) 10/12/19 05:23 Plt Count 239 10^3/uL (150-450) 10/12/19 05:23 Lymph % (Auto) 13.7 % (13-45) 10/09/19 20:55 Cassia % (Auto) 6.1 % (3-13) 10/09/19 20:55 Eos % (Auto) 2.2 % (0-6) 10/09/19 20:55 Baso % (Auto) 0.5 % (0-2) 10/09/19 20:55 Absolute Neuts (auto) 4.7 10^3/uL (1.7-8.2) 10/09/19 20:55 Absolute Lymphs (auto) 0.8 10^3/uL (0.5-4.7) 10/09/19 20:55 Absolute Monos (auto) 0.4 10^3/uL (0.1-1.4) 10/09/19 20:55 Absolute Eos (auto) 0.1 10^3/uL (0.0-0.6) 10/09/19 20:55 Absolute Basos (auto) 0.0 10^3/uL (0.0-0.2) 10/09/19 20:55 Seg Neutrophils % 77.5 % (42-78) 10/09/19 20:55 Sodium 125.9 mmol/L (137-145) L 10/12/19 05:23 Potassium 4.1 mmol/L (3.6-5.0) 10/12/19 05:23 Chloride 92 mmol/L (98-107) L 10/12/19 05:23 Carbon Dioxide 26 mmol/L (22-30) 10/12/19 05:23 Anion Gap 8 (5-19) 10/12/19 05:23 BUN 14 mg/dL (7-20) 10/12/19 05:23 Creatinine 0.90 mg/dL (0.52-1.25) 10/12/19 05:23 Est GFR ( Amer) > 60 (>60) 10/12/19 05:23 Est GFR (MDRD) Non-Af > 60 (>60) 10/12/19 05:23 Glucose 173 mg/dL (75-110) H 10/12/19 05:23 POC Glucose 381 mg/dL (70-110) H 10/12/19 11:26 Calcium 9.1 mg/dL (8.4-10.2) 10/12/19 05:23 Magnesium 1.5 mg/dL (1.6-2.3) L 10/12/19 05:23 Total Bilirubin 0.5 mg/dL (0.2-1.3) 10/09/19 20:55 Direct Bilirubin 0.0 mg/dL (0.0-0.4) 10/09/19 20:55 Neonat Total Bilirubin Not Reportable 10/09/19 20:55 Neonat Direct Bilirubin Not Reportable 10/09/19 20:55 Neonat Indirect Bili Not Reportable 10/09/19 20:55 AST 27 U/L (14-36) 10/09/19 20:55 ALT 21 U/L (<35) 10/09/19 20:55 Alkaline Phosphatase 104 U/L (38-126) 10/09/19 20:55 Total Protein 7.0 g/dL (6.3-8.2) 10/09/19 20:55 Albumin 4.3 g/dL (3.5-5.0) 10/09/19 20:55 Lipase 62.7 U/L (23-300) 10/09/19 20:55 Urine Color STRAW 10/09/19 20:55 Urine Appearance CLEAR 10/09/19 20:55 Urine pH 5.0 (5.0-9.0) 10/09/19 20:55 Ur Specific [place] 1.011 10/09/19 20:55 Urine Protein NEGATIVE mg/dL (NEGATIVE) 10/09/19 20:55 Urine Glucose (UA) >=500 mg/dL (NEGATIVE) H 10/09/19 20:55 Urine Ketones NEGATIVE mg/dL (NEGATIVE) 10/09/19 20:55 Urine Blood NEGATIVE (NEGATIVE) 10/09/19 20:55 Urine Nitrite NEGATIVE (NEGATIVE) 10/09/19 20:55 Urine Bilirubin NEGATIVE (NEGATIVE) 10/09/19 20:55 Urine Urobilinogen NEGATIVE mg/dL (<2.0) 06/28/20 20:55 Ur Leukocyte Esterase NEGATIVE (NEGATIVE) 10/09/19 20:55 Urine WBC (Auto) 2 /HPF 10/09/19 20:55 Urine RBC (Auto) 0 /HPF 10/09/19 20:55 Urine Osmolality 380 mOsm/kg (300-900) 10/09/19 20:55 Urine Sodium 49 mmol/L (30-90) 10/09/19 22:05 Urine Ascorbic Acid NEGATIVE (NEGATIVE) 10/09/19 20:55 Gastric Occult Blood NEGATIVE (NEGATIVE) 10/10/19 14:35 SARS-CoV-2 (PCR) Cancelled 10/09/19 22:14 Plan Health Concerns: Need to identify all factors contributing to hematemesis. Treat aggressively. Plan of Treatment: Medications as above. Follow-up with gastroenterology and primary care provider. Goals: Resolution gastric issues. Time Spent: Greater than 30 Minutes Stroke Is this a Stroke Patient?: No Acute Heart Failure - Is this a Heart Failure Patient?: No
[2019-10-12 14:49] VITALS: BP 150/63
[2019-10-12] MEDS ORDERED: MAGNESIUM OXIDE 400 MG TABLET PO SCH (22:00)
== END 2019-10-12 15:30 | disposition home or self-care (01) | DRG 641 ==
LOC: ER 18:47 → EH 23:34 → 4S 10-10 03:10
PROVIDERS: ADMIT Emergency Medicine; ATTEND Hospitalist
DX: E87.1 Hypo-osmolality and hyponatremia (principal); K92.0 Hematemesis; M19.90 Unspecified osteoarthritis, unspecified site; F32.9 Major depressive disorder, single episode, unspecified; E78.5 Hyperlipidemia, unspecified; I12.9 Hypertensive chronic kidney disease with stage 1 through stage 4 chronic kidney disease, or unspecified chronic kidney disease; E11.22 Type 2 diabetes mellitus with diabetic chronic kidney disease; N18.3 Chronic kidney disease, stage 3 (moderate); D63.1 Anemia in chronic kidney disease; E03.9 Hypothyroidism, unspecified; I25.10 Atherosclerotic heart disease of native coronary artery without angina pectoris; Z83.3 Family history of diabetes mellitus; Z88.2 Allergy status to sulfonamides; Z88.6 Allergy status to analgesic agent; Z88.1 Allergy status to other antibiotic agents; Z79.4 Long term (current) use of insulin; Z79.82 Long term (current) use of aspirin; Z82.49 Family history of ischemic heart disease and other diseases of the circulatory system
CPT/HCPCS: 36415; 80048; 80053; 81001; 82271; 82962; 83690; 83735; 83935; 84300; 85025; 85027; 93005; 93010; 96361; 96374; 99284; J1644; J1815; J2405; J3490; J7030; J7060; J7120; S0028

== ENCOUNTER 2020-01-16 16:57 | Emergency (ER) | payer MEDICARE, OTHER ==
--- NOTE | 2020-01-16 17:53 | ER Document Report ---
ED Medical Screen (RME) - General Chief Complaint: Dizziness Stated Complaint: LIGHTHEADED Time Seen by Provider: 01/16/20 17:46 Primary Care Provider: TRAE AGOSTO MD [Primary Care Provider] - Follow up as needed Mode of Arrival: Ambulatory Information source: Patient Notes: HPI; 65-year-old female presents to the emergency room complaining of dizziness and lightheadedness that started earlier today. States she feels off balance. Denies any spinning or feeling like the room is spinning. She denies any head trauma head injury. No chest pain, no shortness of breath no difficulty breathing. Patient states that she has a history of an electrolyte imbalance and was hospitalized in November for abnormal electrolytes. PE: Alert and oriented x3. Lungs: Clear to auscultation without rales, rhonchi, wheezes. Heart: Regular rate rhythm without murmurs, rubs, gallops. I have greeted and performed a rapid initial assessment of this patient. A comprehensive ED assessment and evaluation of the patient, analysis of test results and completion of the medical decision making process will be conducted by additional ED providers. I have specifically instructed the patient or family members with the patient to immediately return to any nursing staff should anything change in the patient's condition or with their chief complaint. TRAVEL OUTSIDE OF THE [place] IN LAST 30 DAYS: No - Related Data Allergies/Adverse Reactions: erythromycin base Allergy (Intermediate, Verified 10/09/19 19:58) HIVES, FACIAL SWELLING sulfamethoxazole [From Bactrim] Allergy (Verified 10/09/19 19:58) trimethoprim [From Bactrim] Allergy (Verified 10/09/19 19:58) codeine Adverse Reaction (Intermediate, Verified 10/09/19 19:58) NAUSEA, VOMITING Past Medical History - Past Medical History Cardiac Medical History: Reports: Hx Coronary Artery Disease - HIGH CHOL, Hx Hypercholesterolemia, Hx Hypertension Denies: Hx Heart Attack Pulmonary Medical History: Denies: Hx Asthma, Hx Bronchitis, Hx COPD, Hx Pneumonia Neurological Medical History: Denies: Hx Cerebrovascular Accident, Hx Seizures Endocrine Medical History: Reports: Hx Diabetes Mellitus Type 2 - on insulin, Hx Hypothyroidism Renal/ Medical History: Reports: Hx End Stage Renal Disease - Stage 3 kidney disease. Denies: Hx Peritoneal Dialysis GI Medical History: Reports: Hx Gastritis. Denies: Hx Cirrhosis, Hx Hepatitis Musculoskeltal Medical History: Reports Hx Arthritis, Denies Hx Gout Skin Medical History: Denies Hx Eczema, Denies Hx Psoriasis Psychiatric Medical History: Reports: Hx Depression Infectious Medical History: Denies: Hx Hepatitis Past Surgical History: Denies: Hx Cardiac Catheterization, Hx Coronary Artery Bypass Graft - Immunizations Hx Diphtheria, Pertussis, Tetanus Vaccination: Yes - 2017 Physical Exam - Vital signs Vitals: Temp Pulse Resp BP Pulse Ox 98.1 F 71 18 152/53 H 96 01/16/20 17:02 01/16/20 17:02 01/16/20 17:02 01/16/20 17:02 01/16/20 17:02 Course - Vital Signs Vital signs: Temp Pulse Resp BP Pulse Ox 98.1 F 71 18 152/53 H 96 01/16/20 17:02 01/16/20 17:02 01/16/20 17:02 01/16/20 17:02 01/16/20 17:02 Doctor's Discharge - Discharge Referrals: TRAE AGOSTO MD [Primary Care Provider] - Follow up as needed
[2020-01-16 19:03] LABS: APPEARANCE,URINE CLEAR; BILIRUBIN,URINE NEGATIVE (NEGATIVE); COLOR,URINE COLORLESS; GLUCOSE, URINE NEGATIVE (NEGATIVE); KETONES,URINE NEGATIVE (NEGATIVE); LEUKOCYTE ESTERASE,URINE NEGATIVE (NEGATIVE); NITRITE,URINE NEGATIVE (NEGATIVE); PROTEIN,URINE NEGATIVE (NEGATIVE); URINE SPECIFIC GRAVITY 1.002; UROBILINOGEN,URINE NEGATIVE mg/dL (<2.0)
[2020-01-16 20:16] LABS: ABSOLUTE EOSINOPHILS # (AUTO) 0.3 10^3/uL (0.0-0.6); ABSOLUTE LYMPHOCYTES (AUTO) 1.6 10^3/uL (0.5-4.7); ABSOLUTE MONOCYTES (AUTO) 0.4 10^3/uL (0.1-1.4); ABSOLUTE NEUT (AUTO) 3.3 10^3/uL (1.7-8.2); BASOPHILS % (AUTO) 0.7 % (0-2); HEMATOCRIT 33.1 % (36.0-47.0); HEMOGLOBIN 11.4 g/dL (12.0-15.5); MEAN CORPUSCULAR HEMOGLOBIN 31.1 pg (27.0-33.4); MEAN CORPUSCULAR HGB CONC 34.6 g/dL (32.0-36.0); MEAN CORPUSCULAR VOLUME 90 fl (80-97); MONOCYTES % (AUTO) 6.5 % (3-13); PLATELET COUNT 238 10^3/uL (150-450); RED BLOOD COUNT 3.68 10^6/uL (3.72-5.28); RED CELL DISTRIBUTION WIDTH 14.2 % (11.5-14.0); SEGMENTED NEUTROPHILS % (AUTO) 58.8 % (42-78); TOTAL CELLS COUNTED % (AUTO) 100 %; WHITE BLOOD COUNT 5.7 10^3/uL (4.0-10.5)
[2020-01-16 20:30] LABS: ALBUMIN 4.3 g/dL (3.5-5.0); ALKALINE PHOSPHATASE 101 U/L (38-126); ANION GAP 11 (5-19); ASPARTATE AMINO TRANSFERASE 30 U/L (14-36); BILIRUBIN,DIRECT 0.2 mg/dL (0.0-0.4); BILIRUBIN,TOTAL 0.5 mg/dL (0.2-1.3); BLOOD UREA NITROGEN 18 mg/dL (7-20); CALCIUM 9.3 mg/dL (8.4-10.2); CARBON DIOXIDE 24 mmol/L (22-30); CHLORIDE 101 mmol/L (98-107); GLUCOSE 112 mg/dL (75-110); POTASSIUM 4.6 mmol/L (3.6-5.0)
--- NOTE | 2020-01-16 21:53 | EKG REPORT ---
SEVERITY:- ABNORMAL ECG - SINUS RHYTHM NONSPECIFIC T ABNORMALITIES, ANT-LAT LEADS : Confirmed by: Cira Alfred MD 16-Jan-2020 21:52:17
--- NOTE | 2020-01-17 00:55 | ER Document Report ---
ED Dizziness/Weakness - General Chief Complaint: Dizziness Stated Complaint: LIGHTHEADED Time Seen by Provider: 01/16/20 17:46 Primary Care Provider: TRAE AGOSTO MD [Primary Care Provider] - Follow up as needed Mode of Arrival: Ambulatory Notes: 65-year-old female presents to the emergency room complaining of dizziness and lightheadedness that started earlier today. States she feels off balance. Denies any spinning or feeling like the room is spinning. She denies any head trauma head injury. No chest pain, no shortness of breath no difficulty breathing. Patient states that she has a history of an electrolyte imbalance and was hospitalized in November for abnormal electrolytes. TRAVEL OUTSIDE OF THE [place] IN LAST 30 DAYS: No - Related Data Allergies/Adverse Reactions: erythromycin base Allergy (Intermediate, Verified 10/09/19 19:58) HIVES, FACIAL SWELLING sulfamethoxazole [From Bactrim] Allergy (Verified 10/09/19 19:58) trimethoprim [From Bactrim] Allergy (Verified 10/09/19 19:58) codeine Adverse Reaction (Intermediate, Verified 10/09/19 19:58) NAUSEA, VOMITING Past Medical History - General Information source: Patient - Social History Smoking Status: Never Smoker Frequency of alcohol use: None Drug Abuse: None Family History: DM, Hypertension - Past Medical History Cardiac Medical History: Reports: Hx Coronary Artery Disease - HIGH CHOL, Hx Hypercholesterolemia, Hx Hypertension Denies: Hx Heart Attack Pulmonary Medical History: Denies: Hx Asthma, Hx Bronchitis, Hx COPD, Hx Pneumonia Neurological Medical History: Denies: Hx Cerebrovascular Accident, Hx Seizures Endocrine Medical History: Reports: Hx Diabetes Mellitus Type 2 - on insulin, Hx Hypothyroidism Renal/ Medical History: Reports: Hx End Stage Renal Disease - Stage 3 kidney disease. Denies: Hx Peritoneal Dialysis GI Medical History: Reports: Hx Gastritis. Denies: Hx Cirrhosis, Hx Hepatitis Musculoskeletal Medical History: Reports Hx Arthritis, Denies Hx Gout Skin Medical History: Denies Hx Eczema, Denies Hx Psoriasis Psychiatric Medical History: Reports: Hx Depression Infectious Medical History: Denies: Hx Hepatitis Past Surgical History: Denies: Hx Cardiac Catheterization, Hx Coronary Artery Bypass Graft - Immunizations Hx Diphtheria, Pertussis, Tetanus Vaccination: Yes - 2018 Hx Pneumococcal Vaccination: 01/11/19 Review of Systems - Review of Systems Constitutional: Other - dizziness EENT: No symptoms reported Cardiovascular: No symptoms reported Respiratory: No symptoms reported Gastrointestinal: No symptoms reported Genitourinary: No symptoms reported Female Genitourinary: No symptoms reported Musculoskeletal: No symptoms reported Skin: No symptoms reported Hematologic/Lymphatic: No symptoms reported Neurological/Psychological: No symptoms reported Physical Exam - Vital signs Vitals: Temp Pulse Resp BP Pulse Ox 98.1 F 71 18 152/53 H 96 01/16/20 17:02 01/16/20 17:02 01/16/20 17:02 01/16/20 17:02 01/16/20 17:02 - Notes Notes: PHYSICAL EXAMINATION: GENERAL: Well-appearing, well-nourished and in no acute distress. HEAD: Atraumatic, normocephalic. EYES: Pupils equal round and reactive to light, extraocular movements intact, conjunctiva are normal. ENT: Nares patent, oropharynx clear without exudates. Moist mucous membranes. NECK: Normal range of motion, supple without lymphadenopathy LUNGS: Breath sounds clear to auscultation bilaterally and equal. No wheezes rales or rhonchi. HEART: Regular rate and rhythm without murmurs ABDOMEN: Soft, nontender, nondistended abdomen. No guarding, no rebound. No masses appreciated. Female : deferred Musculoskeletal: Normal range of motion, no pitting or edema. No cyanosis. NEUROLOGICAL: Cranial nerves grossly intact. Normal speech, normal gait. Normal sensory, motor exams PSYCH: Normal mood, normal affect. SKIN: Warm, Dry, normal turgor, no rashes or lesions noted. Course - Re-evaluation Re-evalutation: 01/17/20 00:55 EKG reviewed by me shows a sinus rhythm, rate of 61, QTc 407, no ST segment elevations or depressions to suggest ischemia. This EKG is unchanged from previous EKG on file from 10/10/2019. Patient appears well, nontoxic. Her work-up today has been reassuring. Laboratory investigations are unremarkable. Patient reports she has had no symptoms of dizziness for several hours now. She states she feels well and is ready to go home. Patient will be discharged home with ED return precautions. - Vital Signs Vital signs: Temp Pulse Resp BP Pulse Ox 97.9 F 70 16 128/60 H 99 01/17/20 01:22 01/17/20 01:22 01/17/20 01:22 01/17/20 01:22 01/17/20 01:22 - Laboratory Result Diagrams: 01/16/20 19:53 01/16/20 19:53 Laboratory results interpreted by me: 01/16/20 01/16/20 19:53 19:53 RBC 3.68 L Hgb 11.4 L Hct 33.1 L RDW 14.2 H Sodium 135.7 L Glucose 112 H Discharge - Discharge Clinical Impression: Dizziness Condition: Stable Disposition: HOME, SELF-CARE Additional Instructions: You are seen in the emergency department today for an episode of dizziness. All of your lab work today was reassuring. Your electrolytes were within normal ranges. Your EKG was unchanged from your most recent one on file. Since all of your symptoms have completely resolved we will have you follow-up with your primary care provider. Please keep the appointment you have scheduled with you are doctor on Thursday. Return to the emergency department any new or worsening symptoms. Referrals: TRAE AGOSTO MD [Primary Care Provider] - Follow up as needed
[2020-01-17 01:23] VITALS: BP 128/60
== END 2020-01-17 01:33 | disposition home or self-care (01) ==
LOC: ER 16:57
DX: R42 Dizziness and giddiness (principal); E78.00 Pure hypercholesterolemia, unspecified; E11.22 Type 2 diabetes mellitus with diabetic chronic kidney disease; I12.0 Hypertensive chronic kidney disease with stage 5 chronic kidney disease or end stage renal disease; N18.6 End stage renal disease; Z79.4 Long term (current) use of insulin; Z88.3 Allergy status to other anti-infective agents
CPT/HCPCS: 36415; 80053; 81001; 84443; 84484; 85025; 93005; 93010; 99284

== ENCOUNTER 2020-01-29 17:59 | Emergency (ER) | payer MEDICARE, OTHER ==
--- NOTE | 2020-01-29 18:27 | ER Document Report ---
ED Medical Screen (RME) - General Chief Complaint: Nausea/Vomiting Stated Complaint: VOMITING Time Seen by Provider: 01/29/20 18:16 Primary Care Provider: TRAE AGOSTO MD [Primary Care Provider] - Follow up as needed Mode of Arrival: Ambulatory Information source: Patient Notes: 65-year-old female presented to ED nausea and vomiting times several days but he has vomited 3 times today. She states she tried drinking some teja chantel and she still vomited. She does have a history of high cholesterol high blood pressure diabetes and hypothyroid. She states she took her sugar this morning was over 200 but she has not taken this again yet today because she takes just before dinnertime. We will get blood urine Accu-Chek and cover with test and she will be seen by another provider. I have greeted and performed a rapid initial assessment of this patient. A comprehensive ED assessment and evaluation of the patient, analysis of test results and completion of medical decision making process will be conducted by an additional ED providers. TRAVEL OUTSIDE OF THE [place] IN LAST 30 DAYS: No - Related Data Allergies/Adverse Reactions: erythromycin base Allergy (Intermediate, Verified 01/29/20 18:17) HIVES, FACIAL SWELLING sulfamethoxazole [From Bactrim] Allergy (Verified 01/29/20 18:17) trimethoprim [From Bactrim] Allergy (Verified 01/29/20 18:17) codeine Adverse Reaction (Intermediate, Verified 01/29/20 18:17) NAUSEA, VOMITING Home Medications: insulin Past Medical History - Social History Chew tobacco use (# tins/day): No Frequency of alcohol use: None Drug Abuse: None - Past Medical History Cardiac Medical History: Reports: Hx Coronary Artery Disease - HIGH CHOL, Hx Hypercholesterolemia, Hx Hypertension Denies: Hx Heart Attack Pulmonary Medical History: Denies: Hx Asthma, Hx Bronchitis, Hx COPD, Hx Pneumonia Neurological Medical History: Denies: Hx Cerebrovascular Accident, Hx Seizures Endocrine Medical History: Reports: Hx Diabetes Mellitus Type 2 - on insulin, Hx Hypothyroidism Renal/ Medical History: Reports: Hx End Stage Renal Disease - Stage 3 kidney disease. Denies: Hx Peritoneal Dialysis GI Medical History: Reports: Hx Gastritis. Denies: Hx Cirrhosis, Hx Hepatitis Musculoskeltal Medical History: Reports Hx Arthritis, Denies Hx Gout Skin Medical History: Denies Hx Eczema, Denies Hx Psoriasis Psychiatric Medical History: Reports: Hx Depression Infectious Medical History: Denies: Hx Hepatitis Past Surgical History: Denies: Hx Cardiac Catheterization, Hx Coronary Artery Bypass Graft - Immunizations Hx Diphtheria, Pertussis, Tetanus Vaccination: Yes - 2017 Physical Exam - Vital signs Vitals: Temp Pulse Resp BP Pulse Ox 98.2 F 72 18 164/67 H 98 01/29/20 18:10 01/29/20 18:10 01/29/20 18:10 01/29/20 18:10 01/29/20 18:10 Course - Vital Signs Vital signs: Temp Pulse Resp BP Pulse Ox 98.2 F 72 18 164/67 H 98 01/29/20 18:10 01/29/20 18:10 01/29/20 18:10 01/29/20 18:10 01/29/20 18:10 Doctor's Discharge - Discharge Referrals: TRAE AGOSTO MD [Primary Care Provider] - Follow up as needed
[2020-01-29] MEDS ORDERED: ONDANSETRON HCL INJ/PF 4 MG/2 ML SDV IV ONE (19:39)
[2020-01-29] MEDS ORDERED: NORMAL SALINE 1000 ML 1,000 ML IV ONE (19:39)
[2020-01-29 20:07] LABS: APPEARANCE,URINE CLEAR; BILIRUBIN,URINE NEGATIVE (NEGATIVE); COLOR,URINE YELLOW; GLUCOSE, URINE 50 mg/dL (NEGATIVE); KETONES,URINE NEGATIVE (NEGATIVE); LEUKOCYTE ESTERASE,URINE NEGATIVE (NEGATIVE); NITRITE,URINE NEGATIVE (NEGATIVE); PROTEIN,URINE NEGATIVE (NEGATIVE); URINE SPECIFIC GRAVITY 1.018; UROBILINOGEN,URINE NEGATIVE mg/dL (<2.0)
[2020-01-29 21:02] LABS: ABSOLUTE EOSINOPHILS # (AUTO) 0.1 10^3/uL (0.0-0.6); BASOPHILS % (AUTO) 0.5 % (0-2); HEMOGLOBIN 11.1 g/dL (12.0-15.5); TOTAL CELLS COUNTED % (AUTO) 100 %
[2020-01-29 21:11] LABS: ABSOLUTE LYMPHOCYTES (AUTO) 0.9 10^3/uL (0.5-4.7); ABSOLUTE MONOCYTES (AUTO) 0.3 10^3/uL (0.1-1.4); ABSOLUTE NEUT (AUTO) 4.8 10^3/uL (1.7-8.2); EOSINOPHILS % (AUTO) 1.6 % (0-6); HEMATOCRIT 31.4 % (36.0-47.0); LYMPHOCYTES % (AUTO) 15.4 % (13-45); MEAN CORPUSCULAR HEMOGLOBIN 31.8 pg (27.0-33.4); MEAN CORPUSCULAR HGB CONC 35.4 g/dL (32.0-36.0); MEAN CORPUSCULAR VOLUME 90 fl (80-97); MONOCYTES % (AUTO) 4.1 % (3-13); PLATELET COUNT 241 10^3/uL (150-450); RED CELL DISTRIBUTION WIDTH 14.2 % (11.5-14.0); SEGMENTED NEUTROPHILS % (AUTO) 78.4 % (42-78); WHITE BLOOD COUNT 6.1 10^3/uL (4.0-10.5)
--- NOTE | 2020-01-29 21:16 | ER Document Report ---
ED GI/ - General Chief Complaint: Nausea/Vomiting Stated Complaint: VOMITING Time Seen by Provider: 01/29/20 18:16 Primary Care Provider: TRAE AGOSTO MD [Primary Care Provider] - Follow up as needed Mode of Arrival: Ambulatory Information source: Patient TRAVEL OUTSIDE OF THE [place] IN LAST 30 DAYS: No - HPI Notes: Patient is a 65-year-old female with a history of DM II, HTN, and HLD who presents with nausea and vomiting that began around 2 PM this afternoon. Patient states she had a banana and oatmeal for breakfast. She reports multiple episodes of vomiting with no hematemesis. She states she tried to eat crackers and diet teja chantel but immediately threw it up. She denies abdominal pain, diarrhea, fever, headache, chest pain, shortness of breath, nasal congestion, sore throat, and cough. She denies any sick contacts. - Related Data Allergies/Adverse Reactions: erythromycin base Allergy (Intermediate, Verified 01/29/20 18:17) HIVES, FACIAL SWELLING sulfamethoxazole [From Bactrim] Allergy (Verified 01/29/20 18:17) trimethoprim [From Bactrim] Allergy (Verified 01/29/20 18:17) codeine Adverse Reaction (Intermediate, Verified 01/29/20 18:17) NAUSEA, VOMITING Home Medications: insulin Past Medical History - General Information source: Patient - Social History Smoking Status: Never Smoker Chew tobacco use (# tins/day): No Frequency of alcohol use: None Drug Abuse: None Family History: DM, Hypertension Patient has homicidal ideation: No - Past Medical History Cardiac Medical History: Reports: Hx Coronary Artery Disease - HIGH CHOL, Hx Hypercholesterolemia, Hx Hypertension Denies: Hx Heart Attack Pulmonary Medical History: Denies: Hx Asthma, Hx Bronchitis, Hx COPD, Hx Pneumonia Neurological Medical History: Denies: Hx Cerebrovascular Accident, Hx Seizures Endocrine Medical History: Reports: Hx Diabetes Mellitus Type 2 - on insulin, Hx Hypothyroidism Renal/ Medical History: Reports: Hx End Stage Renal Disease - Stage 3 kidney disease. Denies: Hx Peritoneal Dialysis GI Medical History: Reports: Hx Gastritis. Denies: Hx Cirrhosis, Hx Hepatitis Musculoskeletal Medical History: Reports Hx Arthritis, Denies Hx Gout Skin Medical History: Denies Hx Eczema, Denies Hx Psoriasis Psychiatric Medical History: Reports: Hx Depression Infectious Medical History: Denies: Hx Hepatitis Past Surgical History: Denies: Hx Cardiac Catheterization, Hx Coronary Artery Bypass Graft - Immunizations Hx Diphtheria, Pertussis, Tetanus Vaccination: Yes - 2017 Hx Pneumococcal Vaccination: 01/11/19 Review of Systems - Review of Systems Constitutional: No symptoms reported EENT: No symptoms reported Cardiovascular: No symptoms reported Respiratory: No symptoms reported Gastrointestinal: See HPI Genitourinary: No symptoms reported Female Genitourinary: No symptoms reported Musculoskeletal: No symptoms reported Skin: No symptoms reported Hematologic/Lymphatic: No symptoms reported Neurological/Psychological: No symptoms reported Physical Exam - Vital signs Vitals: Temp Pulse Resp BP Pulse Ox 98.2 F 72 18 164/67 H 98 01/29/20 18:10 01/29/20 18:10 01/29/20 18:10 01/29/20 18:10 01/29/20 18:10 - Notes Notes: PHYSICAL EXAMINATION: VITALS: Vitals reviewed and patient hypertensive. GENERAL: female sitting up in bed, pale and in mild distress. HEAD: Atraumatic, normocephalic. EYES: Pupils equal, round, and reactive to light, extraocular movements intact, sclera anicteric, conjunctiva are normal. ENT: Nares patent. Moist mucous membranes. Oropharynx clear without exudates. NECK: Normal range of motion, supple without lymphadenopathy. LUNGS: Breath sounds clear to auscultation bilaterally and equal. No wheezes rales or rhonchi. HEART: Regular, rate, and rhythm without murmurs. ABDOMEN: Soft, nontender, normoactive bowel sounds. No guarding, no rebound. No masses appreciated. EXTREMITIES: Normal range of motion, no pitting or edema. No cyanosis. NEUROLOGICAL: No focal neurological deficits. Moves all extremities spontaneously and on command. PSYCH: Normal mood, normal affect. SKIN: Warm, Dry, normal turgor, no rashes or lesions noted. Course - Re-evaluation Re-evalutation: Patient is a 65-year-old female with history of DM II, HTN and HDL who presents with multiple episodes of nausea and vomiting that began earlier today. Patient is hypertensive with a blood pressure of 164/67, other vitals are within normal limits. On exam, soft, nontender abdomen with normal active bowel sounds in all 4 quadrants. 1 L IV fluids and 4 mg IV Zofran given. POC glucose 177. CBC unremarkable. UA shows elevated glucose of 50 but is otherwise unremarkable. Glucose 233 and sodium elevated at 132.7. After IVF and zofran patient is feeling much better. Will PO challenge with water and crackers. Patient tolerated PO challenge well. Based on presentation and workup I am suspicious of viral gastritis. Little concern for DKA as patient has no anion gap, abnormal CO2 and no ketones in the urine. Patient is safe for discharge home. Zofran dose pack ordered as pharmacies are closed. Prescription for Zofran 4mg PO given. Return precautions and follow up instructions given. Patient understands and is in agreement with the plan. - Vital Signs Vital signs: Temp Pulse Resp BP Pulse Ox 98.4 F 80 17 142/77 H 98 01/29/20 23:13 01/29/20 23:13 01/29/20 23:13 01/29/20 23:13 01/29/20 23:13 - Laboratory Result Diagrams: 01/29/20 20:42 01/29/20 20:42 Laboratory results interpreted by me: 01/29/20 01/29/20 01/29/20 19:40 19:42 20:42 RBC 3.50 L Hgb 11.1 L Hct 31.4 L RDW 14.2 H Seg Neutrophils % 78.4 H Sodium BUN Glucose POC Glucose 177 H Urine Glucose (UA) 50 H Urine Ascorbic Acid 40 H 01/29/20 20:42 RBC Hgb Hct RDW Seg Neutrophils % Sodium 132.7 L BUN 22 H Glucose 233 H POC Glucose Urine Glucose (UA) Urine Ascorbic Acid Discharge - Discharge Clinical Impression: Nausea and vomiting Qualifiers: Vomiting type: unspecified Vomiting Intractability: non-intractable Qualified Code(s): R11.2 - Nausea with vomiting, unspecified Gastritis Qualifiers: Gastritis type: unspecified gastritis Chronicity: acute Gastritis bleeding: without bleeding Qualified Code(s): K29.00 - Acute gastritis without bleeding Condition: Stable Disposition: HOME, SELF-CARE Instructions: COVID-19 Guidance for Persons Under Investigation Additional Instructions: Viral Syndrome The physician has diagnosed a viral infection. Viruses not only cause "colds," but can cause many different symptoms including generalized aching, fever, headache, cough, diarrhea, nausea, vomiting, and fatigue. The treatment, for the most part, is simply relief of symptoms. This means that antibiotics are usually not given. Rest, fluids, pain medications and, occasionally, medication for the specific symptoms that are most bothersome will be prescribed. Use good handwashing to avoid passing the virus to others. Shared toys should be cleaned with disinfectant. Clean the toilets, sinks, and counter surfaces in bathrooms. Launder clothing in hot water. Contact the physician if you develop any new or unusual symptoms such as severe headache, stiff neck, high fever, chest pain, productive cough, or shortness of breath. You should be rechecked if you don't see marked improve ment within seven to 10 days. Prescriptions: Ondansetron [Zofran Odt 4 mg Tablet] 1 - 2 tab PO Q4HP PRN #15 tab.rapdis PRN Reason: Referrals: TRAE AGOSTO MD [Primary Care Provider] - Follow up as needed
[2020-01-29 21:33] LABS: ALBUMIN 4.2 g/dL (3.5-5.0); ALKALINE PHOSPHATASE 104 U/L (38-126); ANION GAP 10 (5-19); ASPARTATE AMINO TRANSFERASE 29 U/L (14-36); BILIRUBIN,DIRECT 0.4 mg/dL (0.0-0.4); BILIRUBIN,TOTAL 0.7 mg/dL (0.2-1.3); BLOOD UREA NITROGEN 22 mg/dL (7-20); CALCIUM 9.2 mg/dL (8.4-10.2); CARBON DIOXIDE 25 mmol/L (22-30); CHLORIDE 98 mmol/L (98-107); GLUCOSE 233 mg/dL (75-110); POTASSIUM 4.6 mmol/L (3.6-5.0); TOTAL PROTEIN 6.9 g/dL (6.3-8.2)
[2020-01-29] MEDS ORDERED: ONDANSETRON ODT 4 MG TAB (6 TAB/ER DISP) PO PRN (23:09)
[2020-01-29 23:14] VITALS: BP 142/77
== END 2020-01-29 23:19 | disposition home or self-care (01) ==
LOC: ER 17:59
DX: K29.00 Acute gastritis without bleeding (principal); R11.2 Nausea with vomiting, unspecified; E11.9 Type 2 diabetes mellitus without complications; I10 Essential (primary) hypertension; Z88.3 Allergy status to other anti-infective agents; Z79.4 Long term (current) use of insulin; Z20.828 Contact with and (suspected) exposure to other viral communicable diseases
CPT/HCPCS: 99284; 96361; 96374; 36415; 87086; 82962; 83605; 83690; 85025; 87088; 80053; 81001; 87186; U0003; J2405; J7030; A9270; C9803; 87635

== ENCOUNTER 2020-02-24 12:11 | Observation (INO) | payer MEDICARE, OTHER ==
[2020-02-24] MEDS ORDERED: ONDANSETRON HCL INJ/PF 4 MG/2 ML SDV IV ONE ×2 (12:40→14:44)
[2020-02-24] MEDS ORDERED: NORMAL SALINE 1000 ML 1,000 ML IV ONE (12:40)
--- NOTE | 2020-02-24 12:41 | ER Document Report ---
ED Medical Screen (RME) - General Chief Complaint: Vomiting Stated Complaint: VOMITING Time Seen by Provider: 02/24/20 12:33 Primary Care Provider: TRAE AGOSTO MD [Primary Care Provider] - Follow up as needed Notes: Patient is a 65-year-old female who presents emergency department with a chief complaint of nausea and vomiting. Patient states that she vomited about 9 times this morning. She had a normal bowel movement this morning. States that she has had some mucus in the back of her throat. Denies any abdominal pain. Exam: Patient vomiting. I have greeted and performed a rapid initial assessment of this patient. A comprehensive ED assessment and evaluation of the patient, analysis of test results and completion of medical decision making process will be conducted by an additional ED providers. TRAVEL OUTSIDE OF THE [place] IN LAST 30 DAYS: No - Related Data Allergies/Adverse Reactions: erythromycin base Allergy (Intermediate, Verified 01/29/20 18:17) HIVES, FACIAL SWELLING sulfamethoxazole [From Bactrim] Allergy (Verified 01/29/20 18:17) trimethoprim [From Bactrim] Allergy (Verified 01/29/20 18:17) codeine Adverse Reaction (Intermediate, Verified 01/29/20 18:17) NAUSEA, VOMITING Past Medical History - Past Medical History Cardiac Medical History: Reports: Hx Coronary Artery Disease - HIGH CHOL, Hx Hypercholesterolemia, Hx Hypertension Denies: Hx Heart Attack Pulmonary Medical History: Denies: Hx Asthma, Hx Bronchitis, Hx COPD, Hx Pneumonia Neurological Medical History: Denies: Hx Cerebrovascular Accident, Hx Seizures Endocrine Medical History: Reports: Hx Diabetes Mellitus Type 2 - on insulin, Hx Hypothyroidism Renal/ Medical History: Reports: Hx End Stage Renal Disease - Stage 3 kidney disease. Denies: Hx Peritoneal Dialysis GI Medical History: Reports: Hx Gastritis. Denies: Hx Cirrhosis, Hx Hepatitis Musculoskeltal Medical History: Reports Hx Arthritis, Denies Hx Gout Skin Medical History: Denies Hx Eczema, Denies Hx Psoriasis Psychiatric Medical History: Reports: Hx Depression Infectious Medical History: Denies: Hx Hepatitis Past Surgical History: Denies: Hx Cardiac Catheterization, Hx Coronary Artery Bypass Graft - Immunizations Hx Diphtheria, Pertussis, Tetanus Vaccination: Yes - 2017 Physical Exam - Vital signs Vitals: Temp Pulse Resp BP Pulse Ox 98.2 F 73 18 155/65 H 100 02/24/20 12:28 02/24/20 12:28 02/24/20 12:28 02/24/20 12:28 02/24/20 12:28 Course - Vital Signs Vital signs: Temp Pulse Resp BP Pulse Ox 98.2 F 73 18 155/65 H 100 02/24/20 12:28 02/24/20 12:28 02/24/20 12:28 02/24/20 12:28 02/24/20 12:28 Doctor's Discharge - Discharge Referrals: TRAE AGOSTO MD [Primary Care Provider] - Follow up as needed
[2020-02-24] MEDS ORDERED: METOCLOPRAMIDE HCL INJ/PF 10 MG/2 ML SDV IV ONE ×2 (13:15→18:31)
[2020-02-24 13:37] LABS: ABSOLUTE EOSINOPHILS # (AUTO) 0.2 10^3/uL (0.0-0.6); ABSOLUTE LYMPHOCYTES (AUTO) 1.2 10^3/uL (0.5-4.7); ABSOLUTE MONOCYTES (AUTO) 0.5 10^3/uL (0.1-1.4); ABSOLUTE NEUT (AUTO) 5.7 10^3/uL (1.7-8.2); BASOPHILS % (AUTO) 0.6 % (0-2); EOSINOPHILS % (AUTO) 2.3 % (0-6); HEMATOCRIT 31.8 % (36.0-47.0); HEMOGLOBIN 10.9 g/dL (12.0-15.5); LYMPHOCYTES % (AUTO) 15.4 % (13-45); MEAN CORPUSCULAR HEMOGLOBIN 30.6 pg (27.0-33.4); MEAN CORPUSCULAR HGB CONC 34.2 g/dL (32.0-36.0); MEAN CORPUSCULAR VOLUME 90 fl (80-97); MONOCYTES % (AUTO) 6.1 % (3-13); PLATELET COUNT 216 10^3/uL (150-450); RED BLOOD COUNT 3.55 10^6/uL (3.72-5.28); RED CELL DISTRIBUTION WIDTH 13.6 % (11.5-14.0); SEGMENTED NEUTROPHILS % (AUTO) 75.6 % (42-78); TOTAL CELLS COUNTED % (AUTO) 100 %; WHITE BLOOD COUNT 7.5 10^3/uL (4.0-10.5)
[2020-02-24 13:58] LABS: ALBUMIN 3.8 g/dL (3.5-5.0); ALKALINE PHOSPHATASE 92 U/L (38-126); ANION GAP 8 (5-19); ASPARTATE AMINO TRANSFERASE 26 U/L (14-36); BILIRUBIN,DIRECT 0.1 mg/dL (0.0-0.4); BILIRUBIN,TOTAL 0.3 mg/dL (0.2-1.3); BLOOD UREA NITROGEN 23 mg/dL (7-20); CALCIUM 9.1 mg/dL (8.4-10.2); CARBON DIOXIDE 28 mmol/L (22-30); CHLORIDE 94 mmol/L (98-107); GLUCOSE 107 mg/dL (75-110); POTASSIUM 3.9 mmol/L (3.6-5.0); TOTAL PROTEIN 6.5 g/dL (6.3-8.2)
--- NOTE | 2020-02-24 14:14 | ER Document Report ---
Entered by OVIDIO DENTON SCRIBE 02/24/20 1314 Acting as scribe for:SCOTT CRAFT MD ED General - General Chief Complaint: Nausea/Vomiting Stated Complaint: VOMITING Time Seen by Provider: 02/24/20 12:33 Primary Care Provider: TRAE AGOSTO MD [Primary Care Provider] - Follow up as needed Information source: Patient Notes: This 65 year old female patient presents to the emergency department today with complaints of dizziness, reporting that it feels like the room is spinning. Patient states she gets nauseated when the dizziness begins. Patient was seen here recently for a similar complaint and she reports it is "the exact same thing". The patient has been seen here in the emergency room several times in the past 16 months for dizziness, nausea and vomiting. She has been admitted once when her serum sodium was down to 119. TRAVEL OUTSIDE OF THE [place] IN LAST 30 DAYS: No - Related Data Allergies/Adverse Reactions: erythromycin base Allergy (Intermediate, Verified 01/29/20 18:17) HIVES, FACIAL SWELLING sulfamethoxazole [From Bactrim] Allergy (Verified 01/29/20 18:17) trimethoprim [From Bactrim] Allergy (Verified 01/29/20 18:17) codeine Adverse Reaction (Intermediate, Verified 01/29/20 18:17) NAUSEA, VOMITING Past Medical History - General Information source: Patient - Social History Smoking Status: Never Smoker Cigarette use (# per day): No Frequency of alcohol use: None Drug Abuse: None Lives with: Family Family History: Reviewed & Not Pertinent, DM, Hypertension Patient has homicidal ideation: No - Past Medical History Cardiac Medical History: Reports: Hx Coronary Artery Disease - HIGH CHOL, Hx Hypercholesterolemia, Hx Hypertension Endocrine Medical History: Reports: Hx Diabetes Mellitus Type 2 - on insulin, Hx Hypothyroidism Renal/ Medical History: Reports: Hx End Stage Renal Disease - Stage 3 kidney disease GI Medical History: Reports: Hx Gastritis Musculoskeletal Medical History: Reports Hx Arthritis Psychiatric Medical History: Reports: Hx Depression Surgical Hx: Negative - Immunizations Hx Diphtheria, Pertussis, Tetanus Vaccination: Yes - 2018 Hx Pneumococcal Vaccination: 01/11/19 Review of Systems - Review of Systems Constitutional: No symptoms reported EENT: No symptoms reported Cardiovascular: See HPI, Dizziness, Lightheaded Respiratory: No symptoms reported Gastrointestinal: See HPI, Nausea, Vomiting Genitourinary: No symptoms reported Female Genitourinary: No symptoms reported Musculoskeletal: No symptoms reported Skin: No symptoms reported Hematologic/Lymphatic: No symptoms reported Neurological/Psychological: No symptoms reported -: Yes All other systems reviewed and negative Physical Exam - Vital signs Vitals: Temp Pulse Resp BP Pulse Ox 98.2 F 73 18 155/65 H 100 02/24/20 12:28 02/24/20 12:28 02/24/20 12:28 02/24/20 12:28 02/24/20 12:28 - Notes Notes: Physical Exam: General: Alert, appears nauseated. HEENT: Normocephalic. Atraumatic. PERRL. Extraocular movements intact. Oropharynx clear. No nystagmus. Dry oral mucosa. Neck: Supple. Non-tender. Respiratory: No respiratory distress. Clear and equal breath sounds bilaterally. Cardiovascular: Regular rate and rhythm. Abdominal: Obese, appears nauseated. Non-tender. No distension. Normal Bowel Sounds. Back: No gross abnormalities. Extremities: Moves all four extremities. Upper extremities: Normal inspection. Normal ROM. Lower extremities: Normal inspection. No edema. Normal ROM. Neurological: Normal cognition. AAOx4. Normal speech. Psychological: Normal affect. Normal Mood. Skin: Warm. Dry. Normal color. Course - Re-evaluation Re-evalutation: 02/24/20 18:12 The patient's MRI was normal. I went back to check on her, she still gets nauseous and dizzy if she tries to sit up, and does not look like she would tolerate trying to walk. 02/24/20 18:23 The PCT who brought me the EKG, stated the patient's now throwing up small amounts of liquid that is darker and appears reddish. They will do a Gastroccult on it. - Vital Signs Vital signs: Temp Pulse Resp BP Pulse Ox 98.2 F 73 18 155/65 H 100 02/24/20 12:28 02/24/20 12:28 02/24/20 12:28 02/24/20 12:28 02/24/20 12:28 - Laboratory Result Diagrams: 02/24/20 13:20 02/24/20 13:20 Laboratory results interpreted by me: 02/24/20 02/24/20 13: 13:20 RBC 3.55 L Hgb 10.9 L Hct 31.8 L Sodium 129.6 L Chloride 94 L BUN 23 H - Diagnostic Test Radiology reviewed: Reports reviewed - MRI of the brain is read as normal. - EKG Interpretation by Me EKG shows normal: Sinus rhythm, Anderson, Intervals, QRS Complexes. abnormal: ST-T Waves - Nonspecific anterolateral T abnormalities Rate: Normal - 61 Rhythm: NSR When compared to previous EKG there are: No significant change - Consults Dr. Aj Time consulted: 18:13 Consulted provider: will come to ER Discharge - Discharge Clinical Impression: Dizziness, Hyponatremia, Alessia-Vanegas tear Vomiting Qualifiers: Vomiting type: unspecified Vomiting Intractability: intractable Nausea presence: with nausea Qualified Code(s): R11.2 - Nausea with vomiting, unspecified Condition: Stable Disposition: ADMITTED OBSERVATION Admitting Provider: Jean Marie (Hospitalist) Unit Admitted: Medical Floor Referrals: TRAE AGOSTO MD [Primary Care Provider] - Follow up as needed I personally performed the services described in the documentation, reviewed and edited the documentation which was dictated to the scribe in my presence, and it accurately records my words and actions.
[2020-02-24] MEDS ORDERED: RINGERS SOLUTION,LACTATED 1,000 ML IV ONE (14:15)
[2020-02-24 14:31] LABS: APPEARANCE,URINE CLEAR; BILIRUBIN,URINE NEGATIVE (NEGATIVE); COLOR,URINE STRAW; GLUCOSE, URINE NEGATIVE (NEGATIVE); KETONES,URINE NEGATIVE (NEGATIVE); LEUKOCYTE ESTERASE,URINE NEGATIVE (NEGATIVE); NITRITE,URINE NEGATIVE (NEGATIVE); PROTEIN,URINE NEGATIVE (NEGATIVE); URINE SPECIFIC GRAVITY 1.013; UROBILINOGEN,URINE NEGATIVE mg/dL (<2.0)
[2020-02-24] MEDS ORDERED: LORAZEPAM INJ 2 MG/1 ML VIAL IV ONE (14:44)
--- NOTE | 2020-02-24 17:37 | RADIOLOGY REPORT (SQ) ---
EXAM DESCRIPTION: MRI HEAD WITHOUT IMAGES COMPLETED DATE/TIME: 02/24/2020 5:07 pm REASON FOR STUDY: Sudden onset dizziness, intractable vomiting COMPARISON: None. TECHNIQUE: Multiplanar imaging includes non-contrasted T1, T2, FLAIR, and diffusion with ADC map seq uences. Images stored on PACS. LIMITATIONS: None. FINDINGS: ANATOMY: No anomalies. Normal vascular flow voids. Pituitary fossa normal. CSF SPACES: Normal in size and contour. No hemorrhage. CEREBRUM: Sulci and gyri normal in size and contour. Normal white matter signal on FLAIR imaging. No evidence of hemorrhage, mass, or extraaxial fluid collection. POSTERIOR FOSSA: No signal alteration. No hemorrhage. No edema, masses or mass effect. Internal carson tory canals, cerebello-pontine angles, mastoids normal. DIFFUSION IMAGING: Negative for acute or sub-acute infarction. ORBITS: No masses. Globes normal. PARANASAL SINUSES: No fluid levels. Mucosa normal. OTHER: No other significant finding. IMPRESSION: NORMAL MRI OF THE BRAIN WITHOUT INTRAVENOUS GADOLINIUM CONTRAST. EVIDENCE OF ACUTE STROKE: NO. TECHNICAL DOCUMENTATION: JOB ID: [id number] [employer]- All Rights Reserved Reading location - IP/workstation name: [email or web address]
[2020-02-24] MEDS ORDERED: PANTOPRAZOLE SODIUM 40 MG VIAL IV ONE (18:23)
[2020-02-24] MEDS ORDERED: MAG HYDROX/AL HYDROX/SIMETH SUSP 30 ML UDCUP PO ONE (18:31)
[2020-02-24] MEDS ORDERED: PROCHLORPERAZINE EDISYLATE INJ 10 MG/2 ML VIAL IV ONE (18:33)
[2020-02-24] MEDS ORDERED: DIPHENHYDRAMINE HCL 50 MG/ML VIAL IV ONE (18:33)
[2020-02-24] MEDS ORDERED: ONDANSETRON HCL INJ/PF 4 MG/2 ML SDV IV PRN (19:00)
[2020-02-24] MEDS ORDERED: IPRATROPIUM/ALBUTEROL 0.5-2.5 MG/3 ML AMPUL NEB PRN (19:00)
[2020-02-24] MEDS ORDERED: ACETAMINOPHEN 325 MG TABLET PO PRN (19:00)
[2020-02-24] MEDS: METOCLOPRAMIDE HCL INJ/PF 10 MG/2 ML SDV IV SCH (19:49)
--- NOTE | 2020-02-24 19:50 | PDOC H&P ---
History of Present Illness Admission Date/PCP: 02/24/20 19:16 TRAE AGOSTO MD Patient complains of: Intractable nausea and vomiting History of Present Illness: KRISTEN GATES is a 65 year old female, past medical history of diabetes, high blood pressure, hypothyroidism who came in the ED due to intractable nausea and vomiting. Patient has been admitted multiple times in this hospital due to intractable nausea and vomiting. It is unclear what is causing her recurrent vomiting. She has seen a boat worker for this and an EGD was done April of this year which did not show any structural abnormalities. According to the patient she was prescribed a medication for gastroparesis and a modified diet. She came in the ED today due to sudden onset of vomiting accompanied by rotatory dizziness that started this morning. Vomitus was clear however the last vomiting was blood-tinged. CBC was unremarkable, CMP showed sodium of 129, l other electrolytes normal. MRI brain that was done was normal as well. Patient was given several medications for nausea and vomiting namely Reglan, Zofran, Compazine which did not help with her vomiting. Hospitalist service was called for further evaluation and management. Past Medical History Cardiac Medical History: Reports: Coronary Artery Disease - HIGH CHOL, H yperlipidema, Hypertension Denies: Myocardial Infarction Pulmonary Medical History: Denies: Asthma, Bronchitis, Chronic Obstructive Pulmonary Disease (COPD), Pneumonia EENT Medical History: Reports: None Neurological Medical History: Denies: Seizures Endocrine Medical History: Reports: Diabetes Mellitus Type 2 - on insulin, Hypothyroidism Renal/ Medical History: Reports: End Stage Renal Disease - Stage 3 kidney disease Malignancy Medical History: Reports: None GI Medical History: Denies: Cirrhosis, Hepatitis Musculoskeltal Medical History: Reports: Arthritis Denies: Gout Skin Medical History: Denies: Eczema, Psoriasis Psychiatric Medical History: Reports: Depression Hematology: Reports: Anemia - TAKES IRON Denies: Bleeding Tendencies Past Surgical History Past Surgical History: Denies: Cardiac Catheterization, Coronary Artery Bypass Graft Social History Lives with: Family Smoking Status: Never Smoker Frequency of Alcohol Use: None Hx Recreational Drug Use: No Drugs: None Hx Prescription Drug Abuse: No Family History Family History: Reviewed & Not Pertinent, DM, Hypertension Parental Family History Reviewed: Yes Children Family History Reviewed: Yes Sibling(s) Family History Reviewed.: Yes Medication/Allergy Home Medications: Atorvastatin Calcium [Lipitor 10 mg Tablet] 10 mg PO WSUPPER 01/03/16 Cetirizine HCl [Zyrtec 10 mg Tablet] 10 mg PO DAILY 09/29/19 Sertraline HCl [Zoloft 50 mg Tablet] 50 mg PO DAILY 09/29/19 Levothyroxine Sodium [Euthyrox] 50 mcg PO Q6AM 02/24/20 Lisinopril [Prinivil 10 mg Tablet] 10 mg PO DAILY 02/24/20 Allergies/Adverse Reactions: erythromycin base Allergy (Intermediate, Verified 01/29/20 18:17) HIVES, FACIAL SWELLING sulfamethoxazole [From Bactrim] Allergy (Verified 01/29/20 18:17) trimethoprim [From Bactrim] Allergy (Verified 01/29/20 18:17) codeine Adverse Reaction (Intermediate, Verified 01/29/20 18:17) NAUSEA, VOMITING Review of Systems Gastrointestinal: PRESENT: nausea, vomiting Neurological: PRESENT: dizziness Physical Exam Vital Signs: Temp Pulse Resp BP Pulse Ox 98.2 F 73 18 155/65 H 100 02/24/20 12:28 02/24/20 12:28 02/24/20 12:28 02/24/20 12:28 02/24/20 12:28 Intake & Output 02/23/20 02/24/20 02/25/20 06:59 06:59 06:59 Intake Total 1999 Balance 1999 Weight 68.8 kg General appearance: PRESENT: no acute distress, cooperative Head exam: PRESENT: atraumatic, normocephalic Eye exam: PRESENT: EOMI, PERRLA Mouth exam: PRESENT: moist Neck exam: PRESENT: full ROM Respiratory exam: PRESENT: clear to auscultation carlie, symmetrical Cardiovascular exam: PRESENT: RRR, +S1, +S2 Pulses: PRESENT: +2 pedal pulses bilateral GI/Abdominal exam: PRESENT: normal bowel sounds, soft. ABSENT: rebound, tenderness Extremities exam: PRESENT: full ROM Musculoskeletal exam: PRESENT: full ROM Neurological exam: PRESENT: alert, awake, oriented to person, oriented to place, oriented to time, oriented to situation Psychiatric exam: PRESENT: normal mood Skin exam: PRESENT: normal color Results Laboratory Results: 02/24/20 13:20 02/24/20 13:20 02/24/20 02/24/20 02/24/20 13: 13:20 14:10 WBC 7.5 RBC 3.55 L Hgb 10.9 L Hct 31.8 L MCV 90 MCH 30.6 MCHC 34.2 RDW 13.6 Plt Count 216 Seg Neutrophils % 75.6 Sodium 129.6 L Potassium 3.9 Chloride 94 L Carbon Dioxide 28 Anion Gap 8 BUN 23 H Creatinine 0.92 Est GFR ( Amer) > 60 Glucose 107 Calcium 9.1 Total Bilirubin 0.3 AST 26 Alkaline Phosphatase 92 Total Protein 6.5 Albumin 3.8 Lipase 86.3 Urine Color STRAW Urine Appearance CLEAR Urine pH 5.0 Ur Specific [place] 1.013 Urine Protein NEGATIVE Urine Glucose (UA) NEGATIVE Urine Ketones NEGATIVE Urine Blood NEGATIVE Urine Nitrite NEGATIVE Ur Leukocyte Esterase NEGATIVE Urine WBC (Auto) 1 Urine RBC (Auto) 0 02/24/20 02/24/20 13:20 13:20 Creatine Kinase 59 Troponin I < 0.012 Impressions: Head MRI 02/24/20 14:45 IMPRESSION: NORMAL MRI OF THE BRAIN WITHOUT INTRAVENOUS GADOLINIUM CONTRAST. EVIDENCE OF ACUTE STROKE: NO. Assessment and Plan - Diagnosis (1) Nausea & vomiting Qualifiers: Vomiting type: unspecified Vomiting Intractability: non-intractable Qualified Code(s): R11.2 - Nausea with vomiting, unspecified Is this a current diagnosis for this admission?: Yes Plan: -Has been admitted multiple times at [facility] due to nausea and vomiting. Unclear as to what is causing it. -Per patient she had an EGD April of this year which did not show any structural abnormalities however he was prescribed Reglan and a modified diet. -MRI negative -Will admit her for IV fluids -Reglan, Zofran, Compazine, Benadryl for dizziness -PPI for hyperacidity. (2) Hyponatremia Is this a current diagnosis for this admission?: Yes Plan: -Sodium 129.6 mild -She has prior history of hyponatremia -This is likely secondary to vomiting and/or dehydration -We will start IV fluids and continue to monitor (3) Alessia-Vanegas tear Is this a current diagnosis for this admission?: Yes Plan: -Patient came in with intractable nausea and vomiting - Hemoglobin stable, vital signs stable -Per ED physician last vomitus was blood-tinged -This is likely secondary to Alessia-Vanegas tear from intractable vomiting -We will put her on n.p.o. -Started on IV PPI - (4) Diabetes mellitus type 2 in nonobese Is this a current diagnosis for this admission?: Yes Plan: -On sliding scale regular insulin and Novolin 10 units twice daily -We will hold for now and put her on a sliding scale Humalog because she is n.p.o. -Accu-Cheks every 6 (5) Hypertension Qualifiers: Hypertension type: essential hypertension Qualified Code(s): I10 - Essential (primary) hypertension Is this a current diagnosis for this admission?: Yes Plan: -On lisinopril will resume once she is not n.p.o. (6) Hypothyroid Qualifiers: Hypothyroidism type: unspecified Qualified Code(s): E03.9 - Hypothyroidism, unspecified Is this a current diagnosis for this admission?: Yes Plan: -We will resume levothyroxine tomorrow (7) Hyperlipidemia Qualifiers: Hyperlipidemia type: unspecified Qualified Code(s): E78.5 - Hyperlipidemia, unspecified Is this a current diagnosis for this admission?: Yes Plan: -Lipitor held will resume tomorrow - Time Time Spent with patient: 25-34 minutes Medications reviewed and adjusted accordingly: Yes Anticipated Discharge Disposition: Home, Self Care Anticipated Discharge Timeframe: within 48 hours
[2020-02-24] MEDS: DIPHENHYDRAMINE HCL 50 MG/ML VIAL IV SCH (20:13)
[2020-02-24] MEDS: DEXTROSE 5%-LACTATED RINGERS 1,000 ML IV PRN (20:16)
[2020-02-24] MEDS: INSULIN LISPRO 100 UNIT/ML 3 ML VIAL SUBCUT SCH (22:51)
[2020-02-24] MEDS: PANTOPRAZOLE SODIUM 40 MG VIAL IV SCH (22:51)
[2020-02-24] MEDS: HEPARIN SOD (PORCINE) 5,000 UNIT/ML 1 ML VIAL SUBCUT SCH (22:52)
[2020-02-25] MEDS: METOCLOPRAMIDE HCL INJ/PF 10 MG/2 ML SDV IV SCH ×2 (03:30→11:20)
[2020-02-25] MEDS: DIPHENHYDRAMINE HCL 50 MG/ML VIAL IV SCH ×2 (03:30→11:19)
[2020-02-25] MEDS: HEPARIN SOD (PORCINE) 5,000 UNIT/ML 1 ML VIAL SUBCUT SCH ×2 (06:10→13:23)
[2020-02-25] MEDS: DEXTROSE 5%-LACTATED RINGERS 1,000 ML IV PRN (07:00)
[2020-02-25 07:25] LABS: ABSOLUTE EOSINOPHILS # (AUTO) 0.1 10^3/uL (0.0-0.6); ABSOLUTE LYMPHOCYTES (AUTO) 1.2 10^3/uL (0.5-4.7); ABSOLUTE MONOCYTES (AUTO) 0.4 10^3/uL (0.1-1.4); ABSOLUTE NEUT (AUTO) 3.3 10^3/uL (1.7-8.2); BASOPHILS % (AUTO) 0.7 % (0-2); EOSINOPHILS % (AUTO) 1.8 % (0-6); HEMATOCRIT 27.8 % (36.0-47.0); HEMOGLOBIN 9.5 g/dL (12.0-15.5); LYMPHOCYTES % (AUTO) 24.1 % (13-45); MEAN CORPUSCULAR HEMOGLOBIN 30.7 pg (27.0-33.4); MEAN CORPUSCULAR VOLUME 90 fl (80-97); MONOCYTES % (AUTO) 7.1 % (3-13); PLATELET COUNT 183 10^3/uL (150-450); RED BLOOD COUNT 3.08 10^6/uL (3.72-5.28); RED CELL DISTRIBUTION WIDTH 13.5 % (11.5-14.0); SEGMENTED NEUTROPHILS % (AUTO) 66.3 % (42-78); TOTAL CELLS COUNTED % (AUTO) 100 %; WHITE BLOOD COUNT 4.9 10^3/uL (4.0-10.5)
[2020-02-25 07:46] LABS: ALBUMIN 2.9 g/dL (3.5-5.0); ALKALINE PHOSPHATASE 74 U/L (38-126); ANION GAP 6 (5-19); ASPARTATE AMINO TRANSFERASE 22 U/L (14-36); BILIRUBIN,DIRECT 0.1 mg/dL (0.0-0.4); BILIRUBIN,TOTAL 0.5 mg/dL (0.2-1.3); BLOOD UREA NITROGEN 17 mg/dL (7-20); CALCIUM 8.6 mg/dL (8.4-10.2); CARBON DIOXIDE 26 mmol/L (22-30); CHLORIDE 102 mmol/L (98-107); GLUCOSE 278 mg/dL (75-110); POTASSIUM 4.5 mmol/L (3.6-5.0); TOTAL PROTEIN 5.2 g/dL (6.3-8.2)
[2020-02-25] MEDS: INSULIN LISPRO 100 UNIT/ML 3 ML VIAL SUBCUT SCH ×2 (08:13→11:18)
[2020-02-25] MEDS ORDERED: GLUCAGON,HUMAN RECOMB 1 MG INJ IM PRN (08:14)
[2020-02-25] MEDS ORDERED: DEXTROSE 50%-WATER 25 GM/50 ML DISP.SYRIN IV PRN ×2 (08:14)
[2020-02-25] MEDS ORDERED: DEXTROSE 40% GEL 15 GM TUBE PO PRN ×2 (08:14)
--- NOTE | 2020-02-25 09:21 | EKG REPORT ---
SEVERITY:- BORDERLINE ECG - SINUS RHYTHM PROBABLE LEFT ATRIAL ABNORMALITY : Confirmed by: Carolann Smart 25-Feb-2020 09:21:04
[2020-02-25] MEDS: PANTOPRAZOLE SODIUM 40 MG VIAL IV SCH (10:14)
[2020-02-25] MEDS ORDERED: INSULIN GLARGINE,HUM.REC.ANLOG 1,000 UNIT/10 ML VIAL SUBCUT SCH (11:00)
[2020-02-25] MEDS ORDERED: POLYETHYLENE GLYCOL 3350 POWDER 17 GM/1 PACKET PO PRN (11:39)
[2020-02-25 13:31] VITALS: BP 140/56
--- NOTE | 2020-02-28 23:33 | PDOC DISCHARGE SUMMARY ---
Impression - Admit/DC Date/PCP Admission Date/Primary Care Provider: 02/24/20 19:16 TRAE AGOSTO MD Discharge Date: 02/25/20 - Discharge Diagnosis (1) Nausea & vomiting Is this a current diagnosis for this admission?: Yes (2) Hyponatremia Is this a current diagnosis for this admission?: Yes (3) Alessia-Vanegas tear Is this a current diagnosis for this admission?: Yes (4) Diabetes mellitus type 2 in nonobese Is this a current diagnosis for this admission?: Yes (5) Hypertension Is this a current diagnosis for this admission?: Yes (6) Hypothyroid Is this a current diagnosis for this admission?: Yes (7) Hyperlipidemia Is this a current diagnosis for this admission?: Yes - Additional Information Discharge Diet: As Tolerated Discharge Activity: Activity As Tolerated Referrals: TRAE AGOSTO MD [Primary Care Provider] - 02/28/20 8:45 am ([facility] WILL CONTACT THE PATIENT WITH FOLLOW UP APPT ) Prescriptions: Ondansetron [Zofran Odt 4 mg Tablet] 4 mg PO Q6HP PRN 5 Days #20 tab.rapdis PRN Reason: Home Medications: Atorvastatin Calcium [Lipitor 10 mg Tablet] 10 mg PO WSUPPER 01/03/16 Cetirizine HCl [Zyrtec 10 mg Tablet] 10 mg PO DAILY 09/29/19 Sertraline HCl [Zoloft 50 mg Tablet] 50 mg PO DAILY 09/29/19 Levothyroxine Sodium [Euthyrox] 50 mcg PO Q6AM 02/24/20 Lisinopril [Prinivil 10 mg Tablet] 10 mg PO DAILY 02/24/20 Aspirin [Ecotrin 81 mg EC Tablet] 81 mg PO DAILY 02/25/20 Ondansetron [Zofran Odt 4 mg Tablet] 4 mg PO Q6HP PRN 5 Days #20 tab.rapdis 02/25/20 History of Present Illiness History of Present Illness: KRISTEN GATES is a 65 year old female, past medical history of diabetes, high blood pressure, hypothyroidism who came in the ED due to intractable nausea and vomiting. Patient has been admitted multiple times in this hospital due to intractable nausea and vomiting. It is unclear what is causing her recurrent vomiting. She has seen a webfed offset press operator for this and an EGD was done April of this year which did not show any structural abnormalities. According to the patient she was prescribed a medication for gastroparesis and a modified diet. She came in the ED today due to sudden onset of vomiting accompanied by rotatory dizziness that started this morning. Vomitus was clear however the last vomiting was blood-tinged. CBC was unremarkable, CMP showed sodium of 129, l other electrolytes normal. MRI brain that was done was normal as well. Patient was given several medications for nausea and vomiting namely Reglan, Zofran, Compazine which did not help with her vomiting. Hospitalist service was called for further evaluation and management. Hospital Course Hospital Course: Nausea and vomiting resolved. patient tolerate diet and was discharged the next day. Physical Exam Vital Signs: Temp Pulse Resp BP Pulse Ox 98.5 F 65 16 140/56 H 97 02/25/20 13:31 02/25/20 13:31 02/25/20 13:31 02/25/20 11:49 02/25/20 13:31 General appearance: PRESENT: no acute distress, cooperative Head exam: PRESENT: atraumatic, normocephalic Eye exam: PRESENT: EOMI, PERRLA Mouth exam: PRESENT: moist Neck exam: PRESENT: full ROM Respiratory exam: PRESENT: symmetrical, unlabored. ABSENT: rales Cardiovascular exam: PRESENT: RRR, +S1, +S2 Pulses: PRESENT: +2 pedal pulses bilateral GI/Abdominal exam: PRESENT: normal bowel sounds, soft. ABSENT: rebound, tenderness Extremities exam: PRESENT: full ROM Musculoskeletal exam: PRESENT: full ROM Neurological exam: PRESENT: alert, oriented to place, oriented to time, oriented to situation Results Laboratory Results: WBC 4.9 10^3/uL (4.0-10.5) 02/25/20 06:34 RBC 3.08 10^6/uL (3.72-5.28) L 02/25/20 06:34 Hgb 9.5 g/dL (12.0-15.5) L 02/25/20 06:34 Hct 27.8 % (36.0-47.0) L 02/25/20 06:34 MCV 90 fl (80-97) 02/25/20 06:34 MCH 30.7 pg (27.0-33.4) 02/25/20 06:34 MCHC 34.0 g/dL (32.0-36.0) 02/25/20 06:34 RDW 13.5 % (11.5-14.0) 02/25/20 06:34 Plt Count 183 10^3/uL (150-450) 02/25/20 06:34 Lymph % (Auto) 24.1 % (13-45) 02/25/20 06:34 [place] % (Auto) 7.1 % (3-13) 02/25/20 06:34 Eos % (Auto) 1.8 % (0-6) 02/25/20 06:34 Baso % (Auto) 0.7 % (0-2) 02/25/20 06:34 Absolute Neuts (auto) 3.3 10^3/uL (1.7-8.2) 02/25/20 06:34 Absolute Lymphs (auto) 1.2 10^3/uL (0.5-4.7) 02/25/20 06:34 Absolute Monos (auto) 0.4 10^3/uL (0.1-1.4) 02/25/20 06:34 Absolute Eos (auto) 0.1 10^3/uL (0.0-0.6) 02/25/20 06:34 Absolute Basos (auto) 0.0 10^3/uL (0.0-0.2) 02/25/20 06:34 Seg Neutrophils % 66.3 % (42-78) 02/25/20 06:34 Sodium 134.4 mmol/L (137-145) L 02/25/20 06:34 Potassium 4.5 mmol/L (3.6-5.0) 02/25/20 06:34 Chloride 102 mmol/L (98-107) 02/25/20 06:34 Carbon Dioxide 26 mmol/L (22-30) 02/25/20 06:34 Anion Gap 6 (5-19) 02/25/20 06:34 BUN 17 mg/dL (7-20) 02/25/20 06:34 Creatinine 0.84 mg/dL (0.52-1.25) 02/25/20 06:34 Est GFR ( Amer) > 60 (>60) 02/25/20 06:34 Est GFR (MDRD) Non-Af > 60 (>60) 02/25/20 06:34 Glucose 278 mg/dL (75-110) H 02/25/20 06:34 POC Glucose 245 mg/dL (70-110) H 02/25/20 10:51 Calcium 8.6 mg/dL (8.4-10.2) 02/25/20 06:34 Magnesium 1.8 mg/dL (1.6-2.3) 02/25/20 06:34 Total Bilirubin 0.5 mg/dL (0.2-1.3) 02/25/20 06:34 Direct Bilirubin 0.1 mg/dL (0.0-0.4) 02/25/20 06:34 Neonat Total Bilirubin Not Reportable 02/25/20 06:34 Neonat Direct Bilirubin Not Reportable 02/25/20 06:34 Neonat Indirect Bili Not Reportable 02/25/20 06:34 AST 22 U/L (14-36) 02/25/20 06:34 ALT 17 U/L (<35) 02/25/20 06:34 Alkaline Phosphatase 74 U/L (38-126) 02/25/20 06:34 Creatine Kinase 59 U/L (30-135) 02/24/20 13:20 Troponin I < 0.012 ng/mL 02/24/20 13:20 Total Protein 5.2 g/dL (6.3-8.2) L 02/25/20 06:34 Albumin 2.9 g/dL (3.5-5.0) L 02/25/20 06:34 Lipase 86.3 U/L (23-300) 02/24/20 13:20 Urine Color STRAW 02/24/20 14:10 Urine Appearance CLEAR 02/24/20 14:10 Urine pH 5.0 (5.0-9.0) 02/24/20 14:10 Ur Specific [place] 1.013 02/24/20 14:10 Urine Protein NEGATIVE mg/dL (NEGATIVE) 02/24/20 14:10 Urine Glucose (UA) NEGATIVE mg/dL (NEGATIVE) 02/24/20 14:10 Urine Ketones NEGATIVE mg/dL (NEGATIVE) 02/24/20 14:10 Urine Blood NEGATIVE (NEGATIVE) 02/24/20 14:10 Urine Nitrite NEGATIVE (NEGATIVE) 02/24/20 14:10 Urine Bilirubin NEGATIVE (NEGATIVE) 02/24/20 14:10 Urine Urobilinogen NEGATIVE mg/dL (<2.0) 02/24/20 14:10 Ur Leukocyte Esterase NEGATIVE (NEGATIVE) 02/24/20 14:10 Urine WBC (Auto) 1 /HPF 02/24/20 14:10 Urine RBC (Auto) 0 /HPF 02/24/20 14:10 U Hyaline Cast (Auto) 1 /LPF 02/24/20 14:10 Squamous Epi Cells Auto <1 /HPF 02/24/20 14:10 Urine Mucus (Auto) RARE /LPF 02/24/20 14:10 Urine Ascorbic Acid NEGATIVE (NEGATIVE) 02/24/20 14:10 POC Gastric Occult Bld POSITIVE (NEGATIVE) 02/24/20 18:26 02/24/20 13:20 Troponin I < 0.012 Impressions: Head MRI 02/24/20 14:45 IMPRESSION: NORMAL MRI OF THE BRAIN WITHOUT INTRAVENOUS GADOLINIUM CONTRAST. EVIDENCE OF ACUTE STROKE: NO. Plan Plan of Treatment: Vomiting Vomiting can be part of many illnesses. Most cases of vomiting are due to gastroenteritis, usually a viral infection in the intestinal tract. There is no specific treatment. The disease will end by itself. For now, the main danger to your child is dehydration. During the first few hours of the illness, give clear liquids, such as Pedialyte. Try to give small quantities frequently, such as a teaspoon of liquid every minute or about an ounce of fluids every five to ten minutes. Medications may be prescribed by the physician for special cases. After an hour or two of fluids without vomiting, add rice cereal, toast, applesauce, or bananas and other more solid foods to the clear liquids. Call the physician or go to the hospital if vomiting increases or blood appears in the bowel movement or vomitus; if your child fails to improve, or if signs of dehydration occur (no wet diapers for eight to twelve hours, tongue and mouth become dry, not acting as alert as usual). Time Spent: Less than 30 Minutes Stroke Is this a Stroke Patient?: No Acute Heart Failure Is this a Heart Failure Patient?: No
== END 2020-02-25 14:19 | disposition home or self-care (01) ==
LOC: ER 12:11 → EH 19:16 → 4W 21:18
PROVIDERS: ADMIT Internal Medicine; ATTEND Internal Medicine
DX: R11.2 Nausea with vomiting, unspecified (principal); E87.1 Hypo-osmolality and hyponatremia; K22.6 Gastro-esophageal laceration-hemorrhage syndrome; I12.9 Hypertensive chronic kidney disease with stage 1 through stage 4 chronic kidney disease, or unspecified chronic kidney disease; E11.22 Type 2 diabetes mellitus with diabetic chronic kidney disease; N18.30 Chronic kidney disease, stage 3 unspecified; E03.9 Hypothyroidism, unspecified; E78.5 Hyperlipidemia, unspecified; I25.10 Atherosclerotic heart disease of native coronary artery without angina pectoris; D64.9 Anemia, unspecified; F32.9 Major depressive disorder, single episode, unspecified; R42 Dizziness and giddiness; Z79.899 Other long term (current) drug therapy; Z79.82 Long term (current) use of aspirin; Z79.4 Long term (current) use of insulin; Z79.890 Hormone replacement therapy
CPT/HCPCS: 93005; 99285; 96361; 96374; 96375; 36415 ×2; 82962 ×2; 82550; 83690; 83735; 85025 ×2; 82271; 80053 ×2; 81001; 84484; 70551; 93010; G0378 ×3; A9270 ×4; J1644 ×2; J1200 ×2; J2765 ×2; J2060; C9113 ×2; J0780; J2405; J7121 ×2; J7030; J7120; J1815